=== PATIENT | male | born 1965 | race Caucasian/White ===

== ENCOUNTER → 2018-10-23 | Outpatient (CLI) | payer OTHER, SELFPAY ==
[2018-10-23 10:32] LABS: Synovial Fld Mononuclear WBC % 20.2 %; Synovial Fld Polynuclear WBC # 4.125 10^3/ul; Synovial Fld Polynuclear WBC % 79.8 %
[2018-10-23 10:56] LABS: AUTO B FLUID DILUENT BKGD CT WBC <0.1 RBC <0.01 (W<.1,R<.01); Appearance /Synovial Fluid Cloudy (CLEAR); Color / Synovial Fluid Yellow (Pale Yellow); RBC /Synovial Fluid 10 /mm3 (0); Source- Body Fluid SYNOVIAL; Viscosity / Synovial Fluid Sl. Viscous (HIGH)
[2018-10-23 11:42] LABS: Lymph 4 %; Monocyte /Synovial Fluid 7 %; Neutrophil 89 % (0-25)
[2018-10-23 11:46] LABS: Body Fluid QC Type(s) BF1Q,BF2Q,BF3Q
[2018-10-24 12:22] LABS: Pathologist Review Reviewed
[2018-10-24 12:23] LABS: Pathologist Comment Reviewed
== END | disposition home or self-care (01) ==
LOC: LABSPEC 10:15
PROVIDERS: Family Provider Preventive Medicine Occupational Medicine; PCP Preventive Medicine Occupational Medicine; Referring Provider Physician Assistant Surgical; Visit Provider Physician Assistant Surgical
DX: M17.11 Unilateral primary osteoarthritis, right knee (principal)
CPT/HCPCS: 87070; 87075; 87205; 89050; 89051; 89060

== ENCOUNTER → 2019-02-19 | Outpatient (CLI) | payer OTHER, SELFPAY ==
[2019-02-19 10:17] LABS: Pathologist Comment May follow
[2019-02-19 11:11] LABS: RBC /Synovial Fluid 0.065 10^6/uL (0); Synovial Fld Mononuclear WBC % 10.9 %; Synovial Fld Polynuclear WBC % 89.1 %
[2019-02-19 11:27] LABS: AUTO B FLUID DILUENT BKGD CT WBC <0.1 RBC <0.01 (W<.1,R<.01); Appearance /Synovial Fluid Clear (CLEAR); Color / Synovial Fluid Red (Pale Yellow)
[2019-02-19 12:14] LABS: Lymph 3 %; Monocyte /Synovial Fluid 20 %; Neutrophil 77 % (0-25)
[2019-02-19 12:15] LABS: CRYSTALS, BODY FLUID See PATH REV; Source / Synovial Fluid RIGHT KNEE; Viscosity / Synovial Fluid Mod. Viscous (HIGH)
[2019-02-19 12:16] LABS: Body Fluid QC Type(s) BF1Q, BF2Q; Source- Body Fluid SYNOVIAL
--- NOTE | 2019-02-19 13:52 | VDLE_ITS ---
Reason For Study: Pain in Rt lower leg RIGHT GSV is normal. CFV is compressible, spontaneous, phasic, competent and demonstrates normal augmentation. FV is compressible, spontaneous, phasic, competent and demonstrates normal augmentation. POP V is compressible, spontaneous, phasic, competent and demonstrates normal augmentation. T/P Trunk is compressible. PTV is compressible. RT PerV is compressible. Procedure Exam performed in department. A preliminary report was called and/or faxed to [facility]. Interpretation Summary Deep veins of the right lower extremity are patent and compressible segmentally. There is no evidence of right lower extremity deep vein thrombosis. Valvular competence appears intact within the proximal deep venous system on the right . The right great saphenous vein appears patent and compressible segmentally. Ordering Physician: Sal Veras Referring Physician: MD Rell Finley Performed By: Jeri Fink RVT
[2019-02-20 10:35] LABS: Pathologist Review Reviewed
== END | disposition home or self-care (01) ==
LOC: CVS 13:45
PROVIDERS: Family Provider Preventive Medicine Occupational Medicine; PCP Preventive Medicine Occupational Medicine; Referring Provider Physician Assistant Surgical; Visit Provider Physician Assistant Surgical
DX: M17.11 Unilateral primary osteoarthritis, right knee (principal); M25.461 Effusion, right knee; M79.661 Pain in right lower leg
CPT/HCPCS: 87015; 87070; 87075; 87101; 87116; 87205; 87206; 89050; 89051; 89060; 93971

== ENCOUNTER 2020-08-24 15:50 | Outpatient (RCR) | payer OTHER, SELFPAY ==
[2019-08-19 06:25] VITALS: BMI 34.2
[2020-08-24] MEDS: COVID-19 VACC, MRNA(PFIZER)/PF 30 MCG/0.3 ML SYRINGE IM (07:27)
[2020-09-14] MEDS: COVID-19 VACC, MRNA(PFIZER)/PF 30 MCG/0.3 ML SYRINGE IM (07:14)
== END 2020-08-24 23:59 ==
LOC: IMMUN 15:50
PROVIDERS: PCP Preventive Medicine Occupational Medicine; Referring Provider Family Medicine; Visit Provider Family Medicine
DX: Z23 Encounter for immunization (principal)
CPT/HCPCS: 0001A; 0002A; 91300

== ENCOUNTER 2021-06-27 14:59 | Outpatient (CLI) | payer OTHER, SELFPAY | END 2021-06-27 23:59 | disposition short-term general hospital (02) | LOC: LABSPEC 15:00 | PROVIDERS: PCP Preventive Medicine Occupational Medicine; Visit Provider Physician Assistant Surgical | DX: R53.83 Other fatigue (principal) | CPT/HCPCS: 87635; U0003; U0005 ==

== ENCOUNTER → 2024-04-10 | Outpatient (CLI) | payer OTHER, SELFPAY ==
--- OUTSIDE RECORDS SUMMARY | 2024-04-10 06:30 | XMS RPT_ITS | CCD ---
Author Organization [facility] Care Team Providers Care Framer Name Role Phone PROVIDER, UNKNOWN Referring Unavailable No, PCP Primary Care Unavailable Navi Gu Attending Unavailable AUSTIN FINLEY DO Primary Care Physician Austin Finley DO Primary Care Provider [phone] DAVID MARQUEZ Referring Unavailable AUSTIN FINLEY Primary Care Unavailable AUSTIN FINLEY Primary Care Unavailable DAVID MARQUEZ Attending Unavailable AUSTIN FINLEY DO Attending Unavailable AUSTIN FINLEY DO Primary Care Unavailable AUSTIN FINLEY DO Attending Unavailable AUSTIN FINLEY DO Primary Care Unavailable DR BRYAN LAMAS MD Attending UnavailAUSTIN Carreon DO Primary Care Unavailable AUSTIN FINLEY DO Attending Unavailable AUSTIN FINLEY DO Primary Care Unavailable AUSTIN FINLEY DO Primary Care Unavailable GURU MULLEN Attending [place] Allergies Allergy Classification Reported Allergen(s) Allergy Type Date of Onset Reaction(s) Facility (13 sources) Allopurinol; Translations: [allopurinol] Drug Allergy 03-20-2016 Swelling of oral cavity structure (finding), Swelling [facility] Work Phone: Medications Current Medications Medication Drug Class(es) Dates Sig (Normalized) Sig (Original) acetaminophen 325 mg / HYDROcodone bitartrate 5 mg oral tablet (1 source) Opioid Agonist Start: 02-02-2022 End: 02-07-2022 Donnellson 325- 5 mg oral tablet Dose = 1 tab(s), Oral, q4h, PRN Pain, scale 1-6, X 5 day(s), # 10 tab(s), 0 Refill(s), Acute post-operative pain, 109.1 Start Date: 02/02/22 Stop Date: 02/07/22 Status: Ordered Blood Glucose Test Machine (4 sources) Start: 07-19-2023 Blood Glucose Test Machine See Instructions, Dispense 1 glucometer, use as directed daily to test blood sugar. Diagnosis: E11.9, # 1 EA, 0 Refill(s), [id number], New onset type 2 diabetes mellitus, 185, cm, 07/19/23 11:35:00 EST, Height, 107.3, kg, 07/19/23 11:35:00 EST, Dosing Weight Start Date: 07/19/23 Status: Ordered celecoxib 200 mg oral capsule (9 sources) Nonsteroidal Anti-inflammatory Drug Start: 08-23-2021 End: 11-21-2021 celecoxib 200 mg oral capsule Dose : 200 mg = 1 cap(s), Oral, qDay, PRN Joint pain, Do not take concurrently with indomethacin., # 90 cap(s), 3 Refill(s), Pharmacy: [facility], 182.9, cm, 09/29/21 13:16:00 EDT, Height, kg, 09/29/21 13:16:00 EDT, Dosing Weight Start Date: 10/17/21 Status: Ordered colchicine 0.6 mg oral tablet (9 sources) Start: 12-04-2023 End: 06-21-2024 colchicine 0.6 mg oral tablet Dose : 0.6 mg = 1 tab(s), Oral, qDay, # 100 tab(s), 1 Refill(s), [id number], Gout, unspecified, 183, cm, 10/24/23 9:03:00 EDT, Height, kg, 10/24/23 9:03:00 EDT, Dosing Weight Start Date: 12/04/23 Stop Date: 06/21/24 Status: Ordered Start: 03-22-2023 colchicine 0.6 mg oral tablet Dose : 0.6 mg = 1 tab(s), Oral, qDay, # 90 tab(s), 0 Refill(s), [id number], Gout, unspecified, 182, cm, 02/16/22 15:19:00 EDT, Height, kg, 02/16/22 15:19:00 EDT, Dosing Weight Start Date: 03/22/23 Status: Ordered Start: 08-23-2021 colchicine 0.6 mg oral tablet Dose : 0.6 mg = 1 tab(s), Oral, qDay, # 90 tab(s), 3 Refill(s), [id number], 184, cm, 08/23/21 8:49:00 EDT, Height, kg, 08/23/21 8:49:00 EDT, Dosing Weight Start Date: 08/23/21 Status: Ordered fexofenadine / Pseudoephedrine (4 sources) alpha-Adrenergic Agonist, Histamine-1 Receptor Antagonist Start: 08-16-2023 End: 09-19-2024 take 1 tablet by mouth once daily fexofenadine-pseudoephedrine 180 mg-240 mg oral tablet, extended release Dose = 1 tab(s), Oral, qDay, X 100 day(s), # 100 tab(s), 3 Refill(s), [id number], 185, cm, 07/27/23 7:54:00 EST, Height, kg, 07/27/23 10:41:00 EST, Dosing Weight Start Date: 08/16/23 Stop Date: 09/19/24 Status: Ordered Start: 07-19-2023 End: 07-13-2024 take 1 tablet by mouth once daily as needed fexofenadine-pseudoephedrine 60 mg-120 m g oral tablet, extended release Dose = 1 tab(s), Oral, qDay, PRN as needed for allergy symptoms, # 90 tab(s), 3 Refill(s), Pharmacy: [facility] #[id number], 185, cm, 07/19/23 11:35:00 EST, Height, kg, 07/19/23 11:35:00 EST, Dosing Weight Start Date: 07/19/23 Stop Date: 07/13/24 Status: Ordered indomethacin 75 mg extended release oral capsule (9 sources) Nonsteroidal Anti-inflammatory Drug Start: 10-17-2021 indomethacin 75 m g oral capsule, extended release Dose : 75 mg = 1 cap(s), Oral, BID, PRN Gout attack, Do not take concurrently with Celebrex., # 180 cap(s), 0 Refill(s), Pharmacy: [facility], 182.9, cm, 01/25/22 7:58:00 EDT, Height, kg, 01/25/22 7:58:00 EDT, Dosing Weight Start Date: 01/26/22 Status: Ordered Start: 08-23-2021 indomethacin 7 5 mg oral capsule, extended release Dose : 75 mg = 1 cap(s), Oral, BID, PRN Gout attack, Do not take concurrently with Celebrex., # 60 cap(s), 1 Refill(s), Pharmacy: [facility]/pharmacy #[id number], 184, cm, 08/23/21 8:49:00 EDT, Height, kg, 08/23/21 8:49:00 EDT, Dosing Weight Start Date: 08/23/21 Status: Ordered Loratadine-D 24 Hour oral tablet, extended release (5 sources) Start: 04-06-2020 take 1 tablet by mouth once daily Loratadine-D 24 Hour oral tablet, extended release Dose = 1 tab(s), Oral, qDay, # 90 tab(s), 3 Refill(s), Pharmacy: [facility]/pharmacy #[id number], 184, cm, 04/06/20 15:50:00 EDT, Height, kg, 04/06/20 15:50:00 EDT, Dosing Weight Start Date: 04/06/20 Status: Ordered metFORMIN hydrochloride 1000 mg oral tablet (4 sources) Biguanide Start: 02-27-2024 End: 08-25-2024 metFORMIN 1000 mg oral tablet (IR) Dose : 1,000 mg = 1 tab(s), Oral, BID, # 120 tab(s), 2 Refill(s), Pharmacy: [facility]/pharmacy #[id number], 183, cm, 12/07/23 7:48:00 EDT, Height, kg, 12/07/23 7:48:00 EDT, Dosing Weight Start Date: 02/27/24 Stop Date: 08/25/24 Status: Ordered Start: 10-24-2023 End: 02-21-2024 metFORMIN 1000 mg oral table t (IR) Dose : 1,000 mg = 1 tab(s), Oral, BID, # 120 tab(s), 1 Refill(s), Pharmacy: [facility]/pharmacy #[id number], 183, cm, 10/24/23 9:03:00 EDT, Height, kg, 10/24/23 9:03:00 EDT, Dosing Weight Start Date: 10/24/23 Stop Date: 02/21/24 Status: Ordered Start: 07-19-2023 End: 10-17-2023 MetFORMIN (Eqv-Glucophage XR ) 500 mg oral tablet, EXTENDED RELEASE Dose : 2,000 mg = 4 tab(s), Oral, qDay, Start with 1 tablet p.o. daily and increase dose as tolerated., # 120 tab(s), 2 Refill(s), Pharmacy: [facility]/pharmacy #[id number], New onset type 2 diabetes mellitus, 185, cm, 07/19/23 11:35:00 EST, Height, kg, 07/19/23 11:35:00 EST, Dosing Weight Start Date: 07/19/23 Stop Date: 10/17/23 Status: Ordered Multivitamin preparation (5 sources) Start: 12-03-2018 take 1 tablet by mouth once daily Multivitamin Dose = 1 tab(s), Oral, Daily, 0 Refill(s) Start Date: 12/03/18 Status: Ordered predniSONE 10 mg oral tablet (5 sources) Start: 10-17-2021 take 6 tablets by mouth once daily as needed for pain, then take 5 tablets by mouth once daily as needed for pain, then take 4 tablets by mouth once daily as needed for pain, then take 3 tablets by mouth once daily as needed for pain, then take 2 tablets by mouth once daily as needed for pain, then take 1 tablet by mouth once daily as needed for pain predniSONE 10 mg oral tablet See Instructions, PRN Joint pain, Take 6 tabs daily x3 days, then 5 tablets daily x3 days, then 4 tabs daily x3 days, then 3 tabs daily x3 days, then 2 tabs daily x3 days, then 1 tab daily x3 days; take with food, # 63 tab(s), 1 Refill(s), [facility]acy: [facility] Start Date: 10/17/21 Status: Ordered Start: 08-23-2021 take 6 tablets by mo uth once daily as needed for pain, then take 5 tablets by mouth once daily as needed for pain, then take 4 tablets by mouth once daily as needed for pain, then take 3 tablets by mouth once daily as needed for pain, then take 2 tablets by mouth once daily as needed for pain, then take 1 tablet by mouth once daily as needed for pain predniSONE 10 mg oral tablet See Instructions, PRN Joint pain, Take 6 tabs daily x3 days, then 5 tablets daily x3 days, then 4 tabs daily x3 days, then 3 tabs daily x3 days, then 2 tabs daily x3 days, then 1 tab daily x3 days; take with food, # 63 tab(s), 1 Refill(s), Pharmacy: [facility] Start Date: 08/23/21 Status: Ordered Completed/Discontinued Medications Medication Drug Class(es) Dates Sig (Normalized) Sig (Original) betamethasone 1 mg/ml topical cream (9 sources) Corticosteroid Start: 07-19-2023 betamethasone valerate 0.1% topical cream Apply 1 laurie, Topical, BID, # 15 gram(s), 1 Refill(s), Pharmacy: [facility]/pharmacy #[id number], Cream, 185, cm, 07/19/23 11:35:00 EST, Height, 107.3, kg, 07/19/23 11:35:00 EST, Dosing Weight Start Date: 07/19/23 Status: Ordered Start: 08-23-2021 betamethasone valerate 0.1% topical cream Apply 1 laurie, Topical, BID, # 15 gram(s), 1 Refill(s), Pharmacy: [facility]/pharm[facility] #[id number], Cream, 184, cm, 08/23/21 8:49:00 EDT, Height, 111.3, kg, 08/23/21 8:49:00 EDT, Dosing Weight Start Date: 08/23/21 Status: Ordered sildenafil 20 mg oral tablet (9 sources) Phosphodiesterase 5 Inhibitor Start: 10-24-2023 End: 01-22-2024 take 1-5 tablets by mouth once daily as needed sildenafil 20 mg oral tablet 1-5 tabs, Oral, Daily, PRN Erectile dysfunction, # 30 tab(s), 2 Refill(s), Pharmacy: [facility]/pharmacy #[id number], ED (erectile dysfunction), 183, cm, 10/24/23 9:03:00 EDT, Height, kg, 10/24/23 9:03:00 EDT, Dosing Weight Start Date: 10/24/23 Stop Date: 01/22/24 Status: Ordered Start: 03-01-2023 take 1-5 tablets by mouth once daily as needed sildenafil 20 mg oral tablet 1-5 tabs, Oral, Daily, PRN Erectile dysfunction, # 30 tab(s), 3 Refill(s), Pharmacy: [facility] #[id number], ED (erectile dysfunction), 182, cm, 02/16/22 15:19:00 EDT, Height, kg, 02/16/22 15:19:00 EDT, Dosing Weight Start Date: 03/01/23 Status: Ordered Start: 08-23-2021 take 1-5 tablets by mouth once daily as needed sildenafil 20 mg oral tablet 1-5 tabs, Oral, Daily, PRN Erectile dysfunction, # 30 tab(s), 3 Refill(s), Pharmacy: [facility]/pharmacy #[id number], ED (erectile dysfunction), 184, cm, 08/23/21 8:49:00 EDT, Height, kg, 08/23/21 8:49:00 EDT, Dosing Weight Start Date: 08/23/21 Status: Ordered Problems Problem Classification Problem Date Documented Date Episodic/Chronic Allergic reactions (2 sources) Allergy status to other drugs, medicaments and biological substances status; Translations: [Allergy status to oth drug/meds/biol subst status] Onset: 08-04-2018 Episodic Diabetes mellitus without complication (6 sources) Type 2 diabetes mellitus 07-19-2023 Chronic Diabetes mellitus without complication (4 sources) Hyperglycemia; Translations: [Hyperglycemia, unspecified] Onset: 07-14-2023 07-14-2023 Episodic Gout and other crystal arthropathies (11 sources) Gout, unspecified; 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] Onset: 08-04-2018 10-24-2019 Chronic Nonspecific chest pain (4 sources) Acute chest pain; Translations: [Chest pain, unspecified] Onset: 07-14-2023 07-14-2023 Episodic Other and unspecified benign neoplasm (9 sources) Lipoma of right lower limb 08-23-2021 Episodic Other male genital disorders (9 sources) Impotence 03-19-2019 Chronic Other nervous system disorders (1 source) Postoperative pain ; Translations: [Other acute postprocedural pain] Onset: 02-02-2022 Episodic Other non-traumatic joint disorders (2 sources) Pain in right knee; Translations: [Pain in right knee] Onset: 08-04-2018 Episodic Other skin disorders (6 sources) Mass of lower limb 10-24-2021 Episodic Other upper respiratory disease (9 sources) Seasonal allergy 09-19-2019 Chronic Residual codes; unclassified (2 sources) Acquired absence of other specified parts of digestive tract; Translations: [Acquired absence of other specified parts of digestive tract] Onset: 08-04-2018 Episodic Unclassified (6 sources) Patient encounter status 07-19-2023 Results Test Name Value Interpretation Reference Range Facility .GFRon 04-08-2024 GFR 91 ml/min/1.73sqm [facility] Comment on above: Result Comment: GFR Population mean for , Non- Americans Ages 20-29 = 116 mL/min/1.73 sq.m. Ages 30-39 = 107 mL/min/1.73 sq.m. Ages 40-49 = 99 mL/min/1.73 sq.m. Ages 50-59 = 93 mL/min/1.73 sq.m. Ages 60-69 = 85 mL/min/1.73 sq.m. Ages 70+ = 75 mL/min/1.73 sq.m. Chronic Kidney Disease: Less than 60 mL/min/1.73 square meters End Stage Renal Disease: Less than 15 mL/min/1.73 square meters Performed By: #### D LDL, CMP, PSA, GFR, LIPID, A1C #### [address] [place], [place] [address] GFR Non- 75 ml/min/1.73sqm [facility] Comment on above: Result Comment: GFR Population mean for , Non- Americans Ages 20-29 = 116 mL/min/1.73 sq.m. Ages 30-39 = 107 mL/min/1.73 sq.m. Ages 40-49 = 99 mL/min/1.73 sq.m. Ages 50-59 = 93 mL/min/1.73 sq.m. Ages 60-69 = 85 mL/min/1.73 sq.m. Ages 70+ = 75 mL/min/1.73 sq.m. Chronic Kidney Disease: Less than 60 mL/min/1.73 square meters End Stage Renal Disease: Less than 15 mL/min/1.73 square meters Performed By: #### D LDL, CMP, PSA, GFR, LIPID, A1C #### [address] [address] A1Con 04-08-2024 Glucose [Mass/Vol] 128 mg/dL Normal [facility] Comment on above: Result Comment: Natalya mated Average Glucose calculated by equation ((28.7xA1C)-46.7) Estimated average glucose (eAG) is a calculated value from Hemoglobin A1C and is employee's representative of the average blood glucose level in the last 2-3 month period. Normal range: less than 114 mg/dL Performed By: #### D LDL, CMP, PSA, GFR, LIPID, A1C #### [address] [address] HbA1c (Bld) [Mass fraction] 6.1 % Normal 4.3-6.4 [facility] Comment on above: Performed By: #### D LDL, CMP, PSA, GFR, LIPID, A1C #### [address] [address] CMPon 04-08-2024 Albumin Level 4.0 G/dL Normal 3.5-5.0 [facility] Comment on above: Performed By: #### D LDL, CMP, PSA, GFR, LIPID, A1C #### [address] [address] Albumin/Globulin [Mass ratio] 1.4 {ratio} Normal 1.1-2.5 [facility] Comment on above: Performed By: #### D LDL, CMP, PSA, GFR, LIPID, A1C #### [address] [address] ALP [Catalytic activity/Vol] 66 U/L Normal 40-135 [facility] Comment on above: Performed By: #### D LDL, CMP, PSA, GFR, LIPID, A1C #### [address] [address] ALT [Catalytic activity/Vol] 41 U/L Normal 16-63 [facility] Comment on above: Performed By: #### D LDL, CMP, PSA, GFR, LIPID, A1C #### [address] [address] AST [Catalytic activity/Vol] 15 U/L Normal 10-40 [facility] Comment on above: Performed By: #### D LDL, CMP, PSA, GFR, LIPID, A1C #### [address] [address] Bili Total 0.4 mg/dL Normal 0.2-1.0 [facility] Comment on above: Result Comment: Use of this assay is not recommended for patients undergoing treatment with eltrombopag due to the potential for falsely elevated results. Performed By: #### D LDL, CMP, PSA, GFR, LIPID, A1C #### [address] [address] BUN/Creatinine Ratio 20 ratio Normal 7-27 [facility] Comment on above: Performed By: #### D LDL, CMP, PSA, GFR, LIPID, A1C #### [address] [address] Calcium [Mass/Vol] 9.3 mg/dL Normal 8.4-10.2 [facility] Comment on above: Performed By: #### D LDL, CMP, PSA, GFR, LIPID, A1C #### [address] [address] Chloride [Moles/Vol] 101 mmol/L Normal 98-107 [facility] Comment on above: Performed By: #### D LDL, CMP, PSA, GFR, LIPID, A1C #### [address] [address] CO2 [Moles/Vol] 31 mmol/L High 22-29 [facility] Comment on above: Performed By: #### D LDL, CMP, PSA, GFR, LIPID, A1C #### [address] [address] Creatinine [Mass/Vol] 1.02 mg/dL Normal 0.70-1.30 [facility] Comment on above: Result Comment: Test ing performed on Siemens Dimension EXL analyzer using a modified kinetic Zac technique. Performed By: #### D LDL, CMP, PSA, GFR, LIPID, A1C #### [address] [address] Electrolyte Balance 6.0 mEq/L Normal 4.0-15.0 [facility] Comment on above: Performed By: #### D LDL, CMP, PSA, GFR, LIPID, A1C #### [address] [address] Globulin 2.9 G/dL Normal [facility] Comment on above: Performed By: #### D LDL, CMP, PSA, GFR, LIPID, A1C #### [address] [address] Glucose [Mass/Vol] 157 mg/dL High 70-105 [facility] Comment on above: Performed By: #### D LDL, CMP, PSA, GFR, LIPID, A1C #### [address] [address] Potassium [Moles/Vol] 4.7 mmol/L Normal 3.5-5.1 [facility] Comment on above: Performed By: #### D LDL, CMP, PSA, GFR, LIPID, A1C #### [address] [address] Sodium [Moles/Vol] 138 mmol/L Normal 136-145 [facility] Comment on above: Performed By: #### D LDL, CMP, PSA, GFR, LIPID, A1C #### [address] [address] Total Protein 6.9 G/dL Normal 6.4-8.2 [facility] Comment on above: Performed By: #### D LDL, CMP, PSA, GFR, LIPID, A1C #### [address] [address] Urea nitrogen [Mass/Vol] 20 mg/dL High 7-18 [facility] Comment on above: Performed By: #### D LDL, CMP, PSA, GFR, LIPID, A1C #### [address] [place], [place] [address] DLDLon 04-08-2024 Direct LDL Cholesterol 74 mg/dL Normal 0-99 [facility] Comment on above: Result Comment: Dire ct LDL Cholesterol Reference Interval: Optimal: <100 mg/dL Near Optimal/above optimal: 100-129 mg/dL Borderline high: 130-159 mg/dL High: 160-189 mg/dL Very high: >=190 mg/dL Performed By: #### D LDL, CMP, PSA, GFR, LIPID, A1C #### [facility] [address] [place], [place] [address] LABORATORYOrdered By: SYSTEM SYSTEM on 04-08-2024 Albumin BCP dye [Mass/Vol] 4.0 G/dL Normal 3.5 - 5.0 G/dL AO ADM SS Albumin/Globulin [Mass ratio] 1.4 {ratio} Normal 1.1 - 2.5 ratio AO ADM SS ALP [Catalytic activity/Vol] 66 U/L Normal 40 - 135 U/L AO ADM SS ALT With P-5'-P [Catalytic activity/Vol] 41 U/L Normal 16 - 63 U/L AO ADM SS AST With P-5'-P [Catalytic activity/Vol] 15 U/L Normal 10 - 40 U/L AO ADM SS Bilirubin [Mass/Vol] 0.4 mg/dL Normal 0.2 - 1 .0 mg/dL AO ADM SS Comment on above: Interpretive Data: U se of this assay is not recommended for patients undergoing treatment with eltrombopag due to the potential for falsely elevated results. Calcium [Mass/Vol] 9.3 mg/dL Normal 8.4 - 10. 2 mg/dL AO ADM SS Chloride [Moles/Vol] 101 mmol/L Normal 98 - 10 7 mmol/L AO ADM SS CO2 [Moles/Vol] 31 mmol/L High 22 - 29 mmol/L AO ADM SS Creatinine [Mass/Vol] 1.02 mg/dL Normal 0.70 - 1.30 mg/dL AO ADM SS Comment on above: Interpretive Data: T esting performed on Siemens Dimension EXL analyzer using a modified kinetic Zac technique. Electrolyte Balance 6.0 mEq/L Normal 4.0 - 15 .0 mEq/L AO ADM SS GFR/1.73 sq M.predicted among blacks MDRD (S/P/Bld) [Vol rate/Area] 91 ml/min/1.73sqm Invalid Interpretation Code AO Chemistry S Comment on above: Interpretive Data: GFR Population mean for , Non- Americans Ages 20-29 = 116 mL/min/1.73 sq.m. Ages 30-39 = 107 mL/min/1.73 sq.m. Ages 40-49 = 99 mL/min/1.73 sq.m. Ages 50-59 = 93 mL/min/1.73 sq.m. Ages 60-69 = 85 mL/min/1.73 sq.m. Ages 70+ = 75 mL/min/1.73 sq.m. Chronic Kidney Disease: Less than 60 mL/min/1.73 square meters End Stage Renal Disease: Less than 15 mL/min/1.73 square meters GFR/1.73 sq M.predicted among non-blacks MDRD (S/P/Bld) [Vol rate/Area] 75 ml/min/1.73sqm Invalid Interpretation Code AO Chemistry S Comment on above: Interpretive Data: GFR Population mean for , Non- Americans Ages 20-29 = 116 mL/min/1.73 sq.m. Ages 30-39 = 107 mL/min/1.73 sq.m. Ages 40-49 = 99 mL/min/1.73 sq.m. Ages 50-59 = 93 mL/min/1.73 sq.m. Ages 60-69 = 85 mL/min/1.73 sq.m. Ages 70+ = 75 mL/min/1.73 sq.m. Chronic Kidney Disease: Less than 60 mL/min/1.73 square meters End Stage Renal Disease: Less than 15 mL/min/1.73 square meters Globulin 2.9 G/dL Invalid Interpretation Code AO ADM SS Glucose [Mass/Vol] 128 mg/dL Invalid Interpretation Code AO Chemistry S Comment on above: Interpretive Data: E stimated average glucose (eAG) is a calculated value from Hemoglobin A1C and is employee's representative of the average blood glucose level in the last 2-3 month period. Normal range: less than 114 mg/dL Glucose [Mass/Vol] 157 mg/dL High 70 - 105 mg/dL AO ADM SS HbA1c (Bld) [Mass fraction] 6.1 % Normal 4.3 - 6.4 % AO ADM SS Potassium [Moles/Vol] 4.7 mmol/L Normal 3.5 - 5.1 mmol/L AO ADM SS Prostate specific Ag [Mass/Vol] 0.41 ng/mL Normal 0.00 - 4.00 ng/mL AO ADM SS Protein [Mass/Vol] 6.9 G/dL Normal 6.4 - 8.2 G/dL AO ADM SS Sodium [Moles/Vol] 138 mmol/L Normal 136 - 145 mmol/L AO ADM SS Urea nitrogen [Mass/Vol] 20 mg/dL High 7 - 18 mg/dL AO ADM SS Urea nitrogen/Creatinine [Mass ratio] 20 ratio Normal 7 - 27 ratio AO ADM SS LABORATORYOrdered By: Blanca Solis on 04-08-2024 Cholesterol [Mass/Vol] 227 mg/dL High 0 - 200 mg/dL AO ADM Comment on above: Interpretive Data: C holesterol Reference Interval: Less than 200 Desirable 200-239 Borderline high risk 240 and above High risk Cholesterol in HDL [Mass/Vol] 33 mg/dL Low 40 - 60 mg/dL AO ADM SS Cholesterol in LDL [Mass/Vol] 74 mg/dL Normal 0 - 99 mg/dL AO ADM Comment on above: Interpretive Data: D irect LDL Cholesterol Reference Interval: Optimal: <100 mg/dL Near Optimal/above optimal: 100-129 mg/dL Borderline high: 130-159 mg/dL High: 160-189 mg/dL Very high: >=190 mg/dL LDL Cholesterol Not Valid Invalid Interpretation Code 0 - 130 AO ADM Comment on above: Result Comment: Trig lyceride >400 invalidates the calculated LDL. Triglyceride [Mass/Vol] 672 mg/dL High 0 - 150 mg/dL AO ADM Comment on above: Interpretive Data: T riglyceride Reference Interval: Less than 150 Normal 150-199 Borderline high risk 200-499 High risk 500 or higher Very high risk LIPIDon 04-08-2024 Cholesterol [Mass/Vol] 227 mg/dL High 0-200 [facility] Comment on above: Result Comment: Chol esterol Reference Interval: Less than 200 Desirable 200-239 Borderline high risk 240 and above High risk Performed By: #### D LDL, CMP, PSA, GFR, LIPID, A1C #### [address] [place], [place] [address] Cholesterol in HDL [Mass/Vol] 33 mg/dL Low 40-60 [facility] Comment on above: Performed By: #### D LDL, CMP, PSA, GFR, LIPID, A1C #### [address] [address] LDL Cholesterol Not Valid Normal 0-130 [facility] Comment on above: Result Comment: Trig lyceride >400 invalidates the calculated LDL. Performed By: #### D LDL, CMP, PSA, GFR, LIPID, A1C #### [address] [place], [place] [address] Triglyceride [Mass/Vol] 672 mg/dL High 0-150 [facility] Comment on above: Result Comment: Trig lyceride Reference Interval: Less than 150 Normal 150-199 Borderline high risk 200-499 High risk 500 or higher Very high risk Performed By: #### D LDL, CMP, PSA, GFR, LIPID, A1C #### [address] [place], [place] [address] PSAon 04-08-2024 Prostate Specific Antigen 0.41 ng/mL Normal 0.00-4.00 [facility] Comment on above: Performed By: #### D LDL, CMP, PSA, GFR, LIPID, A1C #### [address] [address] BASIC METABOLIC PANELon 02-0 Anion gap [Moles/Vol] 11 mmol/L Normal 3-13 [facility] Comment on above: Performed By: #### Beto [place], [id number] #### [employer] Director: BETTY LOWE ([id number]) [facility] [place] ([employer]) [address] [place] [address] [place] Calcium [Mass/Vol] 9.1 mg/dL Normal 8.4-10.4 [facility] Comment on above: Performed By: #### Beto GILLILAND, [id number] #### [employer] Director: BETTY LOWE ([id number]) [facility], [employer] [place] ([employer]) [address] [place] [address] [place] Chloride [Moles/Vol] 101 mmol/L Normal 98-107 [facility] Comment on above: Performed By: #### Beto GILLILADN, [id number] #### [employer] Director: BETTY LOWE ([phone]) [facility] [facility] R[facility]AN (SWRLAB) [address] [place] [address] CO2 [Moles/Vol] 24 mmol/L Normal 22-30 [facility] Comment on above: Performed By: #### Beto GILLILAND, [id number] #### Museum Or Zoo Director: BETTY LOWE ([phone]) [facility] [address] [place] [address] Creatinine [Mass/Vol] 1.08 mg/dL Normal 0.66-1.25 [facility] Comment on above: Performed By: #### Beto GILLILAND, [id number] #### Museum Or Zoo Director: BETTY LOWE ([id number]) [facility] [address] [place] [address] GLOMERULAR FILTRATION RATE ML/MIN/1.73 SQ M.PREDICTED 79.5 mL/min/1.73m*2 Normal >60.0 [facility] Comment on above: Result Comment: Calc ulation based on the Chronic Kidney Disease Epidemiology Collaboration (CKD-EPI) equation refit without adjustment for race Performed By: #### Beto GILLILAND, [id number] #### Museum Or Zoo Director: BETTY LOWE ([id number]) [facility] (SWRLAB) [address] [place] [address] Glucose [Mass/Vol] 302 mg/dL High 70-100 [facility] Comment on above: Performed By: #### Beto GILLILAND, [id number] #### Museum Or Zoo Director: BETTY LOWE ([phone]) [facility] JAMAR RITTMAN (SWRLAB) [address] [place] [address] Potassium [Moles/Vol] 4.3 mmol/L Normal 3.5-5.1 [facility] Comment on above: Performed By: #### L [id number], [id number] #### Museum Or Zoo Director: BETTY LOWE ([id number]) [facility] [address] [place] [address] Sodium [Moles/Vol] 135 mmol/L Normal 135-145 [facility] Comment on above: Performed By: #### L [id number], [id number] #### Museum Or Zoo Director: BETTY LOWE ([id number]) [facility] [address] [place] [address] Urea nitrogen [Mass/Vol] 20 mg/dL Normal 9-20 [facility] Comment on above: Performed By: #### L [id number], [id number] #### Museum Or Zoo Director: BETTY LOWE ([id number]) [facility] RITTMAN (SWRLAB) [address] [place] [address] Basic metabolic 1998 panelOr dered By: Deshawn Jasmine on 07-14-2023 Anion gap [Moles/Vol] 11 mmol/L 3 - 13 mmol/L [facility] Calcium [Mass/Vol] 9.1 mg/dL 8.4 - 10. 4 mg/dL [facility] Chloride [Moles/Vol] 101 mmol/L 98 - 10 7 mmol/L [facility] CO2 [Moles/Vol] 24 mmol/L 22 - 30 mmol/L [facility] Creatinine [Mass/Vol] 1.08 mg/dL 0.66 - 1.25 mg/dL [facility] GFR/1.73 sq M.predicted MDRD (S/P/Bld) [Vol rate/Area] 79.5 mL/min/{1.73_m2} - PINF [facility] Comment on above: Calculation based on the Chronic Kidney Disease Epidemiology Collaboration (CKD-EPI) equation refit without adjustment for race Glucose [Mass/Vol] 302 mg/dL High 70 - 100 mg/dL [facility] Interpretation and review of laboratory results Abnormal [facility] Potassium [Moles/Vol] 4.3 mmol/L 3.5 - 5.1 mmol/L [facility] Sodium [Moles/Vol] 135 mmol/L 135 - 145 mmol/L [facility] Urea nitrogen [Mass/Vol] 20 mg/dL 9 - 20 mg/dL [facility] CBC W Auto Differential pane l (Bld)on 07-14-2023 Basophils (Bld) [#/Vol] 0.1 10*3/uL 0.0 - 0.2 10*3/uL [facility] Basophils/100 WBC (Bld) 1.0 % 0.0 - 2.0 % [facility] Eosinophils (Bld) [#/Vol] 0.1 10*3/uL 0.0 - 0.5 10*3/uL [facility] Eosinophils/100 WBC (Bld) 1.4 % 1.0 - 6.0 % [facility] Erythrocyte distribution width (RBC) [Ratio] 12.2 % 11.5 - 14.5 % [facility] Hematocrit (Bld) [Volume fraction] 42.8 % 40.0 - 52.0 % [facility] Hemoglobin (Bld) [Mass/Vol] 15.5 g/dL 13.0 - 18.0 g/dL [facility] Immature granulocytes (Bld) [#/Vol] 0.0 10*3/uL NINF - 0.0 10*3/uL [facility] Immature granulocytes/100 WBC (Bld) 0.2 % High NINF - 0.0 % [facility] Interpretation and review of laboratory results Abnormal [facility] Lymphocytes (Bld) [#/Vol] 2.0 10*3/uL 1.0 - 4.3 10*3/uL [facility] Lymphocytes/100 WBC (Bld) 34.1 % 20.0 - 40.0 % [facility] MCH (RBC) [Entitic mass] 31.2 pg 26.0 - 34.0 pg [facility] MCHC (RBC) [Mass/Vol] 36.2 % High 32.0 - 36.0 % [facility] MCV (RBC) [Entitic vol] 86.1 fL 80.0 - 98.0 fL [facility] Monocytes (Bld) [#/Vol] 0.3 10*3/uL 0.0 - 0.8 10*3/uL [facility] Monocytes/100 WBC (Bld) 5.9 % 2.0 - 10.0 % [facility] Neutrophils (Bld) [#/Vol] 3.3 10*3/uL 1.8 - 7.0 10*3/uL [facility] Neutrophils/100 WBC (Bld) 57.4 % 40.0 - 80.0 % [facility] [employer] Nucleated RBC/100 WBC (Bld) [Ratio] 0.0 % [facility] Platelet mean volume (Bld) [Entitic vol] 9.4 fL 7.4 - 12.4 fL [facility] Comment on above: MPV is a calculated measurement using platelet volume ratio Platelets (Bld) [#/Vol] 230 10*3/uL 140 - 440 10*3/uL [facility] RBC (Bld) [#/Vol] 4.97 10*6/uL 4.40 - 5.9 0 10*6/uL [facility] WBC (Bld) [#/Vol] 5.8 10*3/uL 3.6 - 10.7 10*3/uL [facility] CBC WITH AUTO DIFFERENTIALon 07-14-2023 Basophils (Bld) [#/Vol] 0.1 10*3/uL Normal 0.0-0.2 [facility] Comment on above: Performed By: #### L [id number] #### Museum Or Zoo Director: BETTY LOWE ([id number]) [facility]AN (SWRLAB) [address] [place] [address] [place] Basophils/100 WBC (Bld) 1.0 % Normal 0.0-2.0 [facility] Comment on above: Performed By: #### L [id number] #### Museum Or Zoo Director: BETTY LOWE ([id number]) [facility] (SWRLAB) [address] [place] [address] [place] Eosinophils (Bld) [#/Vol] 0.1 10*3/uL Normal 0.0-0.5 [facility] Comment on above: Performed By: #### L [id number] #### Museum Or Zoo Director: BETTY LOWE ([id number]) [facility] (SWRLAB) [address] [place] [address] [place] Eosinophils/100 WBC (Bld) 1.4 % Normal 1.0-6.0 [facility] Comment on above: Performed By: #### L [id number] #### Museum Or Zoo Director: BETTY LOWE ([id number]) [facility] (SWRLAB) [address] [place] [address] Erythrocyte distribution width (RBC) [Ratio] 12.2 % Normal 11.5-14.5 [facility] Comment on above: Performed By: #### L [id number] #### Museum Or Zoo Director: BETTY LOWE ([id number]) [facility] (SWRLAB) [address] [place] [address] ERYTHROCYTE MEAN CORPUSCULAR HEMOGLOBIN CONCENTRATION (G/DL) BY AUTOMATED 36.2 % High 32.0-36.0 [facility] Comment on above: Performed By: #### L [id number] #### Museum Or Zoo Director: BETTY LOWE ([id number]) [facility] (SWRLAB) [address] [place] [address] Hematocrit (Bld) [Volume fraction] 42.8 % Normal 40.0-52.0 [facility] Comment on above: Performed By: #### L [id number] #### Museum Or Zoo Director: BETTY LOWE ([id number]) [facility] (SWRLAB) [address] [place] [address] Hemoglobin (Bld) [Mass/Vol] 15.5 g/dL Normal 13.0-18.0 [facility] Comment on above: Performed By: #### L [id number] #### Museum Or Zoo Director: BETTY LOWE ([id number]) [facility] ROLDNA RITTMAN (SWRLAB) [address] [place] [address] [place] IMMATURE GRANS (10*3/UL) IN BLOOD BY AUTOMATED COUNT 0.0 10*3/uL Normal <=0.0 [facility] Comment on above: Performed By: #### L [id number] #### Museum Or Zoo Director: BETTY LOWE ([id number]) [facility] (SWRLAB) [address] [place] [address] IMMATURE GRANS/100 LEUKOCYTES IN BLOOD BY AUTOMATED COUNT 0.2 % High <=0.0 [facility] Comment on above: Performed By: #### L [id number] #### Museum Or Zoo Director: BETTY LOWE ([id number]) [facility] (SWRLAB) [address] [place] [address] Lymphocytes (Bld) [#/Vol] 2.0 10*3/uL Normal 1.0-4.3 [facility] Comment on above: Performed By: #### L [id number] #### Museum Or Zoo Director: BETTY LOWE ([id number]) [facility] (SWRLAB) [address] [place] [address] Lymphocytes/100 WBC (Bld) 34.1 % Normal 20.0-40.0 [facility] Comment on above: Performed By: #### L [id number] #### Museum Or Zoo Director: BETTY LOWE ([id number]) [facility] (SWRLAB) [address] [place] [address] MCH (RBC) [Entitic mass] 31.2 pg Normal 26.0-34.0 [facility] Comment on above: Performed By: #### L [id number] #### Museum Or Zoo Director: BETTY LOWE ([id number]) [facility] (SWRLAB) [address] [place] [address] MCV (RBC) [Entitic vol] 86.1 fL Normal 80.0-98.0 [facility] Comment on above: Performed By: #### L [id number] #### Museum Or Zoo Director: BETTY LOWE ([id number]) [facility] (SWRLAB) [address] [place] [address] [place] Monocytes (Bld) [#/Vol] 0.3 10*3/uL Normal 0.0-0.8 [facility] Comment on above: Performed By: #### L [id number] #### Museum Or Zoo Director: BETTY LOWE ([id number]) [facility] R[facility]TM[facility] (SWRLAB) [address] [place] [address] [place] Monocytes/100 WBC (Bld) 5.9 % Normal 2.0-10.0 [facility] Comment on above: Performed By: #### L [id number] #### Museum Or Zoo Director: BETTY LOWE ([phone]) [facility] (SWRLAB) [address] [place] [address] [place] Neutrophils (Bld) [#/Vol] 3.3 10*3/uL Normal 1.8-7.0 [facility] Comment on above: Performed By: #### L [id number] #### Museum Or Zoo Director: BETTY LOWE ([id number]) [facility] (SWRLAB) [address] [place] [address] [place] Neutrophils/100 WBC (Bld) 57.4 % Normal 40.0-80.0 [facility] Comment on above: Performed By: #### L [id number] #### Museum Or Zoo Director: BETTY LOWE ([id number]) [facility] (SWRLAB) [address] [place] [address] [place] NRBC (PER 100 WBCS) BY AUTOMATED COUNT 0.0 /100 WBCs Normal 0.0-2.0 [facility] Comment on above: Performed By: #### L [id number] #### Museum Or Zoo Director: BETTY LOWE ([id number]) [facility] (SWRLAB) [address] [place] [address] Platelet mean volume (Bld) [Entitic vol] 9.4 fL Normal 7.4-12.4 [facility] Comment on above: Result Comment: MPV is a calculated measurement using platelet volume ratio Performed By: #### L [id number] #### Museum Or Zoo Director: BETTY LOWE ([id number]) [facility] (SWRLAB) [address] [place] [address] [place] Platelets (Bld) [#/Vol] 230 10*3/uL Normal 140-440 [facility] Comment on above: Performed By: #### L [id number] #### Museum Or Zoo Director: BETTY LOWE ([id number]) [facility] (SWRLAB) [address] [place] [address] RBC (Bld) [#/Vol] 4.97 10*6/uL Normal 4.40-5.90 [facility] Comment on above: Performed By: #### L [id number] #### Museum Or Zoo Director: BETTY LOWE ([id number]) [facility] (SWRLAB) [address] [place] [address] WBC (Bld) [#/Vol] 5.8 10*3/uL Normal 3.6-10.7 [facility] Comment on above: Performed By: #### L [id number] #### Museum Or Zoo Director: BETTY LOWE ([id number]) [facility] (SWRLAB) [address] [place] [address] ECG 12-LEADon 07-14-2023 ECG 12-LEAD IMPRESSION: Sinus rhythm No previous ECG available for comparison Electronically Signed On 07-14-2023 11:02:57 EST by David Marquez [facility] ED Nursing Noteon 07-14-2023 ED Nursing Note Pt ambulatory to [place] [address] with c/o chest tightness, sudden onset yesterday. Pt describes the tightness over left chest wall with no modifying factors. Pt denies any shortness of breath, dizziness, lightheadedness, nausea, vomiting. Pt reports that he did have recent flight yesterday. 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 EKG obtained. Normal [facility] ED Provider Noteon ED Provider Note EMERGENCY DEPARTMENT ENCOUNTER Pt Name: Florencia Tavarez Birthdate 1965 Date of evaluation: 07/14/2023 ED Provider: David Marquez MD CHIEF COMPLAINT Chief Complaint Patient presents with Chest Pain History from patient and HISTORY OF PRESENT ILLNESS (Location/Symptom, Timing/Onset, Context/Setting, Quality, Duration, Modifying Factors, Severity) Note limiting factors. I wore appropriate PPE for the entirety of this encounter. HPI Florencia Tavarez is a 58 y.o. who presents to the emergency department complaining of chest pain. States that beginning 2 days ago he had dull mild aching intermittent pain in the left side of his chest. No fever injury. Pain last for several minutes. Nothing makes it better nothing makes it worse. No exertional chest pain or shortness of breath. No history of cardiac pulmonary blood clot or aortic disease. Cardiac risk factor includes chewing tobacco but no smoking tobacco. He did fly home from [place] yesterday -connecting flights but no other travel or immobilization this week. No family history of heart disease or blood clots. No swelling of his legs or shortness of breath. No diaphoresis or palpitations. Told his about it this morning and she was concerned this may be cardiac origin so came to the emergency department. PCP not available this weekend Nursing Notes were reviewed. Limitations to history: None Outside historians: Family REVIEW OF SYSTEMS Review of Systems Constitutional: Negative for fever. Eyes: Negative for visual disturbance. Respiratory: Negative for apnea, cough, choking, chest tightness, shortness of breath, wheezing and stridor. Cardiovascular: Positive for chest pain. Negative for palpitations and leg swelling. Gastrointestinal: Negative for abdominal pain. Genitourinary: Negative for difficulty urinating and flank pain. Musculoskeletal: Negative for back pain and neck pain. Skin: Negative for rash. Neurological: Negative for seizures, speech difficulty, weakness, numbness and headaches. Pertinent positives and negatives as per HPI PAST MEDICAL HISTORY Past Medical History: Diagnosis Date Gout SURGICAL HISTORY Past Surgical History: Procedure Laterality Date APPENDECTOMY KNEE SURGERY Right CURRENT MEDICATIONS Previous Medications No medications on file ALLERGIES Allopurinol FAMILY HISTORY No family history on file. SOCIAL HISTORY Social History Socioeconomic History Marital status: Tobacco Use Smoking status: Never Smokeless tobacco: Never Substance and Sexual Activity Alcohol use: No Drug use: No SCREENINGS HEART Score History: Slightly suspicious ECG: Normal Age: 45-64 Risk Factors: 1-2 risk factors Troponin: Less than or equal to normal limit HEART Score: 2 PHYSICAL EXAM ED Triage Vitals [07/14/23 1046] Temp Heart Rate Resp BP 36.7 ?C (98 ?F) 77 14 (!) 144/97 SpO2 Temp Source Heart Rate Source Patient Position 95 % Oral -- -- BP Location FiO2 (%) Right arm -- Physical Exam Constitutional: Appearance: He is well-developed. HENT: Head: Normocephalic and atraumatic. Eyes: Extraocular Movements: Extraocular movements intact. Pupils: Pupils are equal, round, and reactive to light. Neck: Thyroid: No thyromegaly. Vascular: No JVD. Cardiovascular: Rate and Rhythm: Normal rate. Abdominal: Palpations: Abdomen is soft. There is no mass. Tenderness: There is no abdominal tenderness. Musculoskeletal: General: Normal range of motion. Cervical back: Normal range of motion. Lymphadenopathy: Cervical: No cervical adenopathy. Skin: General: Skin is warm and dry. Neurological: General: No focal deficit present. Mental Status: He is alert. Not febrile not toxic Lungs clear and equal no rales or rhonchi Heart regular rate and rhythm no murmurs or rubs No pulse delays No Homans' sign or cords No focal neurologic deficit DIAGNOSTIC RESULTS Procedures/EKG: EKG was reviewed by myself. Physician EKG interpretation can be found in [facility] RADIOLOGY (Per Emergency Physician): Chest x- ray - no acute process Interpretation per the Radiologist below, if available at the time of this note: XR chest 2 views Final Result No acute cardiopulmonary disease. Report Dictated on Electronically Signed By: Obinna Jules MD Electronically Signed Date/Time: 07/14/2023 11:32 AM EST LABS: Labs Reviewed BASIC METABOLIC PANEL - Abnormal Result Value SODIUM 135 POTASSIUM 4.3 CHLORIDE 101 CARBON DIOXIDE 24 UREA NITROGEN 20 CREATININE 1.08 GLUCOSE 302 (*) CALCIUM 9.1 ANION GAP 11 eGFR 79.5 CBC WITH AUTO DIFFERENTIAL - Abnormal Auto WBC 5.8 RBC 4.97 Hemoglobin 15.5 Hematocrit 42.8 MCV 86.1 MCH 31.2 MCHC 36.2 (*) RDW 12.2 Platelets 230 MPV 9.4 nRBC 0.0 Neutrophils Relative 57.4 Lymphocytes Relative 34.1 Monocytes (more content not included)... Normal [facility] [employer] [facility] Laboratory - Chemistry and C hemistry - challengeon 07-14-2023 Troponin I.cardiac [Mass/Vol] ng/mL NINF - 0.034 ng/mL [employer] No Panel Informationon 07-14 P [place] 44 degrees [facility] NC Interval 147 ms [facility] QRS [place] 75 degrees [facility] QRSD Interval 110 ms [facility] QT Interval 388 ms [facility] QTC Interval 440 ms [facility] T Wave [place] 52 degrees [facility] Sinus rhythm No previous ECG available for comparison Electronically Signed On 07-14-2023 11:02:57 EST by David Shelby MD - 07/14/2023 IMPRESSION: Sinus rhythm No previous ECG available for comparison Electronically Signed On 07-14-2023 11:02:57 EST by David Marquez [facility] TROPONIN Ion 07-14-2023 Troponin I.cardiac [Mass/Vol] ng/mL Normal <0.034 [facility] Comment on above: Result Comment: GEE Lynn COMMENTS: Patients with high levels of Biotin oral intake (ie >5 mg/day) may have falsely decreased Troponin levels. Performed By: #### L [id number], [id number] #### Museum Or Zoo Director: BETTY LOWE ([id number]) [facility] (SWRLAB) [address] [place] [address] Troponin I.cardiac [Mass/Vol ]on 07-14-2023 Interpretation and review of laboratory results Normal [facility] Patients with high levels of Biotin oral intake (ie >5 mg/day) may have falsely decreased Troponin levels. [facility] Vital signson 07-14-2023 Heart rate 77 /min bpm [facility] XR Chest 2 Viewson No acute cardiopulmonary disease. Report Dictated on Electronically Signed By: Obinna Jules MD Electronically Signed Date/Time: 07/14/2023 11:32 AM [facility] [employer] SYSTEM Patient Name: FLORENCIA TAVAREZ : 1965 Exam Date/Time: 07/14/2023 11:13 Procedure: XR CHEST 2 VIEWS Ordering Provider: MARQUEZ NICHOLAS Reason For Exam: CHEST PAIN CHEST X-RAY PA/LATERAL CLINICAL INDICATION: CHEST PAIN TECHNIQUE: Frontal and lateral plain films of the chest were obtained. COMPARISON: None FINDINGS: Cardiomediastinal silhouette: Normal Lungs: Clear. Bones: Unremarkable [facility] RADIOLOGY SYSTEM Obinna Jules M D - 07/14/2023 [facility] 1965 [id number] Exam Date/Time: 07/14/2023 11:13 Procedure: XR CHEST 2 VIEWS Ordering Provider: MARQUEZ NICHOLAS Reason For Exam: CHEST PAIN CHEST X-RAY PA/LATERAL CLINICAL INDICATION: CHEST PAIN TECHNIQUE: Frontal and lateral plain films of the chest were obtained. COMPARISON: None FINDINGS: Cardiomediastinal silhouette: Normal Lungs: Clear. Bones: Unremarkable IMPRESSION: No acute cardiopulmonary disease. Report Dictated on Electronically Signed By: Obinna Jules MD Electronically Signed Date/Time: 07/14/2023 11:32 AM EST [employer] Radiology Study observation (narrative) [employer] XR Chest 2 ViewsOrdered By: Obinna Jules on 07-14-2023 [employer] Work Phone: LABORATORYOrdered By: Cassie Saez on 10-10-2021 Uric Acid Lvl 5.4 mg/dL Invalid Interpretation Code 3.5 - 7.2 mg/dL AO ADM SS CNOVon 06-12-2019 CNOV Office Visit (UCWSTR ) FLORENCIA TAVAREZ ([id number]) 1965 M Date Time Provider Department 06/12/19 7:30 AM MEY FELIPE During your visit today, we recorded the following information about you: Temperature Pulse Respiration Blood pressure 98.2 degrees 82/minute 16/minute 130/84 Weight 120.7 kg Mey Felipe APRN.HEALTH ASSOCIATE 06/12/2019 8:24 AM Signed Subjective HPI Florencia Tavarez is a 54 year old male who presents with left wrist and right elbow pain for the last 2 days. He suspects this is caused by gout as he has sustained no injuries to the affected areas. He does report old injuries in each area. Has been prescribed indomethacin from PCP for as needed use- he is out of this medicine. He is not a diabetic. No fever or chills, feels well otherwise. Review of Systems Constitutional: Negative for chills, fever and malaise/fatigue. Musculoskeletal: Positive for joint pain. Skin: Negative for itching and rash. Neurological: Negative for tingling, sensory change, focal weakness and weakness. BP 130/84 Pulse 82 Temp 36.8 ?C (98.2 ?F) (Tympanic) Resp 16 Wt 120.7 kg (266 lb 3.2 oz) SpO2 97% History reviewed. No pertinent past medical history. History reviewed. No pertinent surgical history. ALLERGIES Allopurinol; Seasonal Allergies MEDICATIONS celecoxib (CELEBREX) 200 mg capsule febuxostat (ULORIC) 40 mg tab meloxicam (MOBIC) 15 mg tablet Multivitamin capsule Take 1 capsule by mouth once daily. MOMETASONE FUROATE (NASONEX NASAL) Use in the nose. FEXOFENADINE/PSEUDOEP HEDRINE (ALEXANDRO-D 24 HOUR ORAL) Take by mouth. albuterol HFA (PROVENTIL HFA, VENTOLIN HFA) 90 mcg/actuation inhaler Inhale 2 Puffs as instructed every 4 hours as needed. guaiFENesin (MUCINEX) 600 mg 12 hr tablet Take 2 tablets by mouth twice daily. benzonatate (TESSALON PERLES) 100 mg capsule Take 1 capsule by mouth three times daily as needed. indomethacin ER 75 mg CR capsule Take 1 capsule by mouth twice daily with meals. History reviewed. No pertinent family history. Social History Tobacco Use - Smoking status: Never Smoker - Smokeless tobacco: Current User Types: Chew Substance Use Topics - Alcohol use: Not on file - Drug use: Not on file Objective Physical Exam Constitutional: He is oriented to person, place, and time and well-developed, well-nourished, and in no distress. HENT: Head: Normocephalic and atraumatic. Eyes: Conjunctivae are normal. Cardiovascular: Normal rate, regular rhythm, normal heart sounds and intact distal pulses. Exam reveals no gallop and no friction rub. No murmur heard. Pulses: Radial pulses are 2+ on the right side and 2+ on the left side. Pulmonary/Chest: Effort normal and breath sounds normal. No respiratory distress. He has no wheezes. He has no rales. He exhibits no tenderness. Musculoskeletal: General: Tenderness and edema present. Comments: Right elbow erythematous, warm and tender to the touch. Normal ROM. Left wrist slightly warm and tender to the touch, normal ROM. Lymphadenopathy: He has no cervical adenopathy. Neurological: He is alert and oriented to person, place, and time. He has normal sensation. Gait normal. Skin: Skin is warm and dry. No rash noted. He is not diaphoretic. There is erythema. ASSESSMENT/PLAN: 1. Acute gout of multiple sites, unspecified cause - ICD9: 274.01, ICD10: M10.9 - encouraged to follow up with PCP if no better in 3 days, red flags and reasons to go to ED reviewed - INDOMETHACIN ER 75 MG CAPSULE,EXTENDED RELEASE refilled for BID All of the above discussed with the patient in detail. Patient is in agreement with the above plan. Treatment and plan of care discussed including course of treatment, possible medication side effects, and what to watch for in regards to worsening signs and symptoms. All questions addressed. Mey Felipe APRN.GERMAN Felipe APRN.GERMAN 06/12/2019 8:01 AM Signed [facility] [address] [place] [address] Emergency Department Diagnosis: Assessment GOUT: You have an acute joint inflammation called gout. Gout is caused by uric acid crystals forming in the joint. Often uric acid levels in the blood are also elevated. Gout occurs most commonly in men and appears to be an inherited condition. Diuretics (water pills) tend to elevate blood uric acid levels and can cause similar joint problems. The big toe, foot, ankle, and knee are the joints most often affected. Treatment includes: - Rest and elevate the affected limb until the swelling and pain are better. Use a frame to keep the sheets off your leg as needed. - Anti-inflammatory medicine usually brings about dramatic relief of pain , redness, and swelling within 2-3 days. - Increase your fluid intake, avoid alcohol, and do not eat liver, sweetbreads, or sardines. - Long-term management may require medicine to lower blood uric acid levels or stopping diuretic therapy. Please see your doctor if your condition is not better after 1-2 days of treatment, or if you have fever, skin rash, diarrhea, or other joint pains. Referring Provider: SELF [200] Allergies As of Date: 06/12/2019 Noted Allergy Reaction ALLOPURINOL 06/12/2019 7 - Swelling Comments: Tongue swelled up SEASONAL ALLERGIES 02/13/2014 12 - Shortness of Breath Comments: rash Date Reviewed: 06/12/2019 Reviewed by: Mey Felipe - Fully Assessed Reason for Visit: Gout [239] Cmt: (left) wrist and (right) elbow x 2 days Primary Visit Diagnosis:Acute gout of multiple sites, unspecified cause [M10.9] Order(s):indomethacin ER 75 mg CR capsuleTake 1 capsule by mouth twice daily with meals.Disp: 20 capsuleRfl: 0 Prescriptions as of 06/12/2019 Sig: CELECOXIB 200 MG CAPSULE FEBUXOSTAT 40 MG TABLET MELOXICAM 15 MG TABLET MULTIVITAMIN CAPSULE Take 1 capsule by mouth once * NASONEX NASAL Use in the nose. ALEXANDRO-D 24 HOUR ORAL Take by mouth. INDOMETHACIN ER 75 MG CAPSULE* Take 1 capsule by mouth twice* Medication notes this encounter INDOMETHACIN ER 75 MG CAPSULE,EXTENDED RELEASE >> Sylvester Brooke Cma 06/12/2019 7:45 AM >> SYLVESTER BROOKE CMA Jun 12, 2019 7:45 AM Out of medication Problem List As Of Date: 06/12/2019 (None) Other instructions from your clinician: [facility] [address] [place], [place] [address] Emergency Department Diagnosis: Assessment GOUT: You have an acute joint inflammation called gout. Gout is caused by uric acid crystals forming in the joint. Often uric acid levels in the blood are also elevated. Gout occurs most commonly in men and appears to be an inherited condition. Diuretics (water pills) tend to elevate blood uric acid levels and can cause similar joint problems. The big toe, foot, ankle, and knee are the joints most often affected. Treatment includes: - Rest and elevate the affected limb until the swelling and pain are better. Use a frame to keep the sheets off your leg as needed. - Anti-inflammatory medicine usually brings about dramatic relief of pain , redness, and swelling within 2-3 days. - Increase your fluid intake, avoid alcohol, and do not eat liver, sweetbreads, or sardines. - Long-term management may require medicine to lower blood uric acid levels or stopping diuretic therapy. Please see your doctor if your condition is not better after 1-2 days of treatment, or if you have fever, skin rash, diarrhea, or other joint pains. Prescriptions ordered this encounter Disp Refills Start End INDOMETHACIN ER 75 MG CAPSULE,EXTEND* 20 c* 0 06/12/2019 Route: ORAL Sig: Take 1 capsule by mouth twice daily with meals. Medications Discontinued During This Encounter benzonatate (TESSALON PERLES) 100 mg* 40 c* 0 12/02/2018 06/12/2019 Route: ORAL Sig: Take 1 capsule by mouth three times daily as needed. Patient not taking: Reported on 06/12/2019 Disc: Course of therapy completed guaiFENesin (MUCINEX) 600 mg 12 hr t* 30 t* 0 12/02/2018 06/12/2019 Route: ORAL Sig: Take 2 tablets by mouth twice daily. Patient not taking: Reported on 06/12/2019 Disc: Course of therapy completed albuterol HFA (PROVENTIL HFA, VENTOL* 1 In* 0 12/02/2018 06/12/2019 Route: INHALATION Sig: Inhale 2 Puffs as instructed every 4 hours as needed. Patient not taking: Reported on 06/12/2019 Disc: Course of therapy completed indomethacin ER 75 mg CR capsule 20 c* 0 06/06/2016 06/12/2019 Route: ORAL Sig: Take 1 capsule by mouth twice daily with meals. Patient not taking: Reported on 06/12/2019 Disc: Reason for discontinue is not on file. Encounter Status:Closed by MEY FELIPE APRN.CNP on 06/12/19 [facility] PROGRESSon 06-12-2019 PROGRESS HNO ID: [id number] Author: Mey Felipe Service: ? Author Type: Nurse Practitioner Type: Progress Notes Filed: 06/12/2019 8:24 AM Note Text: Subjective HPI Florencia Tavarez is a 54 year old male who presents with left wrist and right elbow pain for the last 2 days. He suspects this is caused by gout as he has sustained no injuries to the affected areas. He does report old injuries in each area. Has been prescribed indomethacin from PCP for as needed use- he is out of this medicine. He is not a diabetic. No fever or chills, feels well otherwise. Review of Systems Constitutional: Negative for chills, fever and malaise/fatigue. Musculoskeletal: Positive for joint pain. Skin: Negative for itching and rash. Neurological: Negative for tingling, sensory change, focal weakness and weakness. BP 130/84 Pulse 82 Temp 36.8 ?C (98.2 ?F) (Tympanic) Resp 16 Wt 120.7 kg (266 lb 3.2 oz) SpO2 97% History reviewed. No pertinent past medical history. History reviewed. No pertinent surgical history. ALLERGIES Allopurinol; Seasonal Allergies MEDICATIONS celecoxib (CELEBREX) 200 mg capsule febuxostat (ULORIC) 40 mg tab meloxicam (MOBIC) 15 mg tablet Multivitamin capsule Take 1 capsule by mouth once daily. MOMETASONE FUROATE (NASONEX NASAL) Use in the nose. FEXOFENADINE/PSEUDOEP HEDRINE (ALEXANDRO-D 24 HOUR ORAL) Take by mouth. albuterol HFA (PROVENTIL HFA, VENTOLIN HFA) 90 mcg/actuation inhaler Inhale 2 Puffs as instructed every 4 hours as needed. guaiFENesin (MUCINEX) 600 mg 12 hr tablet Take 2 tablets by mouth twice daily. benzonatate (TESSALON PERLES) 100 mg capsule Take 1 capsule by mouth three times daily as needed. indomethacin ER 75 mg CR capsule Take 1 capsule by mouth twice daily with meals. History reviewed. No pertinent family history. Social History Tobacco Use - Smoking status: Never Smoker - Smokeless tobacco: Current User Types: Chew Substance Use Topics - Alcohol use: Not on file - Drug use: Not on file Objective Physical Exam Constitutional: He is oriented to person, place, and time and well-developed, well-nourished, and in no distress. HENT: Head: Normocephalic and atraumatic. Eyes: Conjunctivae are normal. Cardiovascular: Normal rate, regular rhythm, normal heart sounds and intact distal pulses. Exam reveals no gallop and no friction rub. No murmur heard. Pulses: Radial pulses are 2+ on the right side and 2+ on the left side. Pulmonary/Chest: Effort normal and breath sounds normal. No respiratory distress. He has no wheezes. He has no rales. He exhibits no tenderness. Musculoskeletal: General: Tenderness and edema present. Comments: Right elbow erythematous, warm and tender to the touch. Normal ROM. Left wrist slightly warm and tender to the touch, normal ROM. Lymphadenopathy: He has no cervical adenopathy. Neurological: He is alert and oriented to person, place, and time. He has normal sensation. Gait normal. Skin: Skin is warm and dry. No rash noted. He is not diaphoretic. There is erythema. ASSESSMENT/PLAN: 1. Acute gout of multiple sites, unspecified cause - ICD9: 274.01, ICD10: M10.9 - encouraged to follow up with PCP if no better in 3 days, red flags and reasons to go to ED reviewed - INDOMETHACIN ER 75 MG CAPSULE,EXTENDED RELEASE refilled for BID All of the above discussed with the patient in detail. Patient is in agreement with the above plan. Treatment and plan of care discussed including course of treatment, possible medication side effects, and what to watch for in regards to worsening signs and symptoms. All questions addressed. Mey Felipe, DOYLE.HEALTH ASSOCIATE [facility] OBSOLETEon 03-04-2019 OBSOLETE Refill (UCTR) FLORENCIA TAVAREZ ([id number]) 1965 M Date Time Provider Department 03/04/19 JESSICA FRAGOSO [facility] During your visit today, we recorded the following information about you: Allergies As of Date: 03/04/2019 Noted Allergy Reaction SEASONAL ALLERGIES 02/13/2014 12 - Shortness of Breath Comments: rash Date Reviewed: 12/02/2018 Reviewed by: Gaby Millan Ma - Fully Assessed Reason for Visit: Refill Request [94] Visit Diagnosis:Bronchitis [J40] Prescriptions as of 03/04/2019 Sig: ALBUTEROL SULFATE HFA 90 MCG/* Inhale 2 Puffs as instructed * GUAIFENESIN ER 600 MG TABLET,* Take 2 tablets by mouth twice* BENZONATATE 100 MG CAPSULE Take 1 capsule by mouth three* INDOMETHACIN ER 75 MG CAPSULE* Take 1 capsule by mouth twice* MULTIVITAMIN CAPSULE Take 1 capsule by mouth once * NASONEX NASAL Use in the nose. ALEXANDRO-D 24 HOUR ORAL Take by mouth. Problem List As Of Date: 03/04/2019 (None) Encounter Status:Closed by JESSICA JOSHI MA on 03/04/19 [facility] CNOVon 12-02-2018 CNOV Office Visit (UCWSTR ) FLORENCIA TAVAREZ ([id number]) 1965 M Date Time Provider Department 12/02/18 9:15 AM JESSICA FRAGOSO [facility] During your visit today, we recorded the following information about you: Temperature Pulse Respiration Blood pressure 98 degrees 72/minute 16/minute 132/76 Weight 118.8 kg Gaby Millan Ma 12/02/2018 10:35 AM Signed 2.5 solution aerosol treatment given per provider's orders. Prior to treatment O2 sat is 98%. Treatment completed. O2 sat is 99%. Tolerated well. Gaby Fragoso APRN.HEALTH ASSOCIATE 12/02/2018 10:57 AM Signed [facility] PATIENT INFO BRONCHITIS OVERVIEW Bronchitis develops when there is swelling and irritation of the bronchi, the large tubes that carry air to the lungs. There are two types of bronchitis: acute (sudden onset) and chronic (long-standing). Acute bronchitis often occurs with a viral infection, such as the common cold, and is sometimes called a chest cold . The most common symptom of acute bronchitis is a nagging cough. Treatment of acute bronchitis usually involves treating the symptoms, such as sore throat and congestion. Antibiotics do not help to eliminate acute bronchitis caused by a virus. Antiviral agents are useful in some cases of acute bronchitis due to influenza, but there are antiviral agents for other forms of viral bronchitis. BRONCHITIS CAUSES Most cases of bronchitis are caused by a viral infection of the upper airways, such as the common cold or the flu. Less commonly, a bacterium such as pertussis (whooping cough) is the cause. BRONCHITIS SYMPTOMS The most common symptoms of acute bronchitis include: ? A persistent cough; this may last 10 to 20 days ? Some people cough up mucus, which may be clear, yellow, or green in color Fever is not common in people with acute bronchitis. However, having a fever can be a sign of another condition, such as the flu or pneumonia. Conditions with similar features ? There are other conditions that have symptoms similar to those of acute bronchitis. ? Chronic cough ? A persistent cough that lasts more than eight weeks is considered a chronic cough, which is discussed in detail elsewhere. ? Chronic bronchitis ? Chronic bronchitis is defined as a cough that occurs on most days of the month for at least three months of the year during two consecutive years. ? Pneumonia ? Signs of pneumonia include fever and a fast heart and breathing rate. ? Postnasal drip ? Postnasal drip occurs when secretions drain from the sinuses into the throat. This can cause the throat to feel irritated, which causes you to feel like you need to clear your throat frequently. Postnasal drip can be caused by the common cold, allergies, sinusitis, or environmental irritants. BRONCHITIS DIAGNOSIS Most people who have a persistent cough after an upper respiratory infection (cold) do not need to see a healthcare provider. Diagnostic testing, such as x-rays, cultures, and blood tests, are not usually needed for people with acute bronchitis. However, testing may be recommended if your diagnosis is not clear based upon your examination or if another condition, such as pneumonia, is suspected. When to seek help ? You should call your healthcare provider if you have any of the following: ? Fever (temperature greater than 100.4? F or 38? C) ? A cough that lasts longer than 10 days ? Chest pain with coughing, difficulty breathing, or coughing up blood ? A barking cough that makes it hard to speak, especially if it persists ? Cough accompanied by unexplained weight loss People who are older than 75 do not always have a fever or other concerning symptoms. If you are over 75 years and you have a persistent cough, you should call your clinician to determine if and when an office visit is recommended. BRONCHITIS TREATMENT Relief of symptoms ? There is no specific treatment for bronchitis, but there are a few treatments available for the common cold. ? A nonsteroidal antiinflammatory drug (ibuprofen, naproxen), aspirin, or acetaminophen (Tylenol?) can help to relieve the pain of a sore throat or headache. ? Pseudoephedrine is a decongestant that can improve nasal congestion. Most drugstores in the [place] carry pseudoephedrine behind the counter, so you must ask for it from the pharmacist (a prescription is not required). Other decongestants, such as phenylephrine, are not as effective as pseudoephedrine. Antihistamines such as diphenhydramine (Benadryl?) may also help, but can cause side effects such as drowsiness and drying of the eyes, nose, and mouth. ? Heated, humidified, air can improve symptoms of nasal congestion and runny nose, and has few to no side effects. ? Cough suppressants such as dextromethorphan may be helpful. Antibiotics ? Antibiotics are NOT helpful for most people with bronchitis since the illness is typically caused by a virus. Antibiotics treat bacterial, not viral infections. Antibiotics may be helpful for some patients with other chronic diseases. Many people request antibiotics in the hopes that it will get rid of the cough, and some people even think that antibiotics have helped on previous occasions. However, there is no benefit of antibiotics for most cases of bronchitis. PREVENTING THE SPREAD OF ILLNESS Hand washing is an essential and highly effective way to prevent the spread of infection. Wet your hands with water and plain soap and rub them together for 15 to 30 seconds. Pay special attention to the fingernails, between the fingers, and the wrists. Rinse your hands thoroughly, and dry with a single use towel. Alcohol-based hand rubs are a good alternative for disinfecting hands if a sink is not available. Spread the hand rub over the entire surface of your hands, fingers, and wrists until dry. You can use hand rubs repeatedly without irritating the skin or losing effectiveness. Hand rubs are available as a liquid or wipe in small, portable sizes that are easy to carry in a pocket or handbag. When a sink is available, you should wash visibly soiled hands with soap and water. Wash your hands before preparing food and eating, and after going to the bathroom, and after coughing, blowing the nose, or sneezing. While it is not always possible to limit contact with people who are ill, avoid touching your eyes, nose, or mouth after direct contact, when possible. In addition, use a tissue to cover your mouth when sneezing or coughing. Throw away used tissues promptly and then wash your hands. Sneezing/coughing into the sleeve of your clothing (at the inner elbow) is another way of containing sprays of saliva and secretions and does not contaminate your hands. Sneezing and coughing without covering your mouth can spread infection to anyone within 6 feet. Jessica Frgaoso APRN.HEALTH ASSOCIATE 12/02/2018 2:43 PM Signed Subjective HPI Pt presents with c/o cough x 2 weeks. Cough is moist, occasionally produces yellowish drainage. +coughing fits. +chest tightness during coughing fits. Cough worse at HS. Denies fever, chills, myalgias, dyspnea, wheezing, sore throat, nasal congestion. Took 4 days of leftover amoxicillin with no improvement of sx. Has not tried any OTC cough suppressants or cough drops. Is scheduled for right knee arthroscopy December 10, 2018. No hx asthma, COPD, smoking. No known exposure to sick contacts. Review of Systems Constitutional: Negative for chills and fever. HENT: Negative for congestion, ear pain, sinus pain and sore throat. Respiratory: Positive for cough. Negative for hemoptysis, sputum production, shortness of breath and wheezing. Cardiovascular: Negative for chest pain. Objective Physical Exam Constitutional: He is oriented to person, place, and time and well-developed, well-nourished, and in no distress. No distress. HENT: Head: Normocephalic. Right Ear: Hearing, tympanic membrane, external ear and ear canal normal. Left Ear: Hearing, tympanic membrane, external ear and ear canal normal. Nose: Nose normal. Right sinus exhibits no maxillary sinus tenderness and no frontal sinus tenderness. Left sinus exhibits no maxillary sinus tenderness and no frontal sinus tenderness. Mouth/Throat: Uvula is midline, oropharynx is clear and moist and mucous membranes are normal. No oropharyngeal exudate. Eyes: Pupils are equal, round, and reactive to light. Conjunctivae are normal. Right eye exhibits no discharge. Left eye exhibits no discharge. Neck: Neck supple. Cardiovascular: Normal rate, regular rhythm and normal heart sounds. Exam reveals no gallop and no friction rub. No murmur heard. Pulmonary/Chest: Effort normal. No accessory muscle usage. No respiratory distress. He has decreased breath sounds (Good air movement throughout. Pulse ox 98% before albuterol treatment, 99% after.). He has no wheezes. He has rhonchi (scattered.). He has no rales. Lymphadenopathy: He has no cervical adenopathy. Neurological: He is alert and oriented to person, place, and time. Skin: Skin is warm and dry. He is not diaphoretic. BP 132/76 Pulse 72 Temp 36.7 ?C (98 ?F) (Tympanic) Resp 16 Wt 118.8 kg (262 lb) SpO2 98% .Patient presents with: Chest Congestion: cough x 2 weeks, knee surgery on 12/10 No past medical history on file. No past surgical history on file. ALLERGIES Seasonal Allergies MEDICATIONS indomethacin ER 75 mg CR capsule Take 1 capsule by mouth twice daily with meals. Multivitamin capsule Take 1 capsule by mouth once daily. MOMETASONE FUROATE (NASONEX NASAL) Use in the nose. FEXOFENADINE/PSEUDOEP HEDRINE (ALEXANDRO-D 24 HOUR ORAL) Take by mouth. albuterol HFA (PROVENTIL HFA, VENTOLIN HFA) 90 mcg/actuation inhaler Inhale 2 Puffs as instructed every 4 hours as needed. Inhalational Spacing Device spcr 1 Device one time only for 1 dose. guaiFENesin (MUCINEX) 600 mg 12 hr tablet Take 2 tablets by mouth twice daily. predniSONE (DELTASONE) 20 mg tablet Take 2 tablets by mouth once daily for 5 days. Take daily with food. benzonatate (TESSALON PERLES) 100 mg capsule Take 1 capsule by mouth three times daily as needed. No family history on file. Social History Tobacco Use - Smoking status: Never Smoker - Smokeless tobacco: Current User Types: Chew Substance Use Topics - Alcohol use: Not on file - Drug use: Not on file ASSESSMENT/PLAN: 1. Bronchitis - ICD9: 490, ICD10: J40 (primary diagnosis) - ALBUTEROL SULFATE HFA 90 MCG/ACTUATION AEROSOL INHALER - INHALATIONAL SPACING DEVICE - PREDNISONE 20 MG TABLET 2. Cough - ICD9: 786.2, ICD10: R05 - XR CHEST 2V FRONTAL/LAT Impression: no acute process. - ALBUTEROL SULFATE 2.5 MG/3 ML (0.083 %) SOLUTION FOR NEBULIZATION - GUAIFENESIN ER 600 MG TABLET, EXTENDED RELEASE 12 HR - BENZONATATE 100 MG CAPSULE Reviewed and printed bronchitis education. The patient is instructed to return or seek emergency treatment if symptoms become worse or with any acute change in condition. The patient verbalizes understanding and is in agreement with plan of care. Jessica Fragoso CNP Referring Provider: SELF [200] Allergies As of Date: 12/02/2018 Noted Allergy Reaction SEASONAL ALLERGIES 02/13/2014 12 - Shortness of Breath Comments: rash Date Reviewed: 12/02/2018 Reviewed by: Gaby Millan Ma - Fully Assessed Reason for Visit: Chest Congestion [236] Cmt: cough x 2 weeks, knee surgery on 12/10 Primary Visit Diagnosis:Bronchitis [J40] Other Visit Diagnosis:Cough [R05] Order(s):XR CHEST 2V FRONTAL/LAT [[id number]] Order #: [id number] FUTURE [] albuterol 2.5 mg /3 mL (0.083 %) 2.5 mg (PROVENTIL)Disp: Rfl: albuterol HFA (PROVENTIL HFA, VENTOLIN HFA) 90 mcg/actuation inhalerInhale 2 Puffs as instructed every 4 hours as needed.Disp: 1 InhalerRfl: 0 Inhalational Spacing Device spcr1 Device one time only for 1 dose.Disp: 1 EachRfl: 0 guaiFENesin (MUCINEX) 600 mg 12 hr tabletTake 2 tablets by mouth twice daily.Disp: 30 tabletRfl: 0 predniSONE (DELTASONE) 20 mg tabletTake 2 tablets by mouth once daily for 5 days. Take daily with food.Disp: 10 tabletRfl: 0 benzonatate (TESSALON PERLES) 100 mg capsuleTake 1 capsule by mouth three times daily as needed.Disp: 40 capsuleRfl: 0 Prescriptions as of 12/02/2018 Sig: INDOMETHACIN ER 75 MG CAPSULE* Take 1 capsule by mouth twice* MULTIVITAMIN CAPSULE Take 1 capsule by mouth once * NASONEX NASAL Use in the nose. ALEXANDRO-D 24 HOUR ORAL Take by mouth. ALBUTEROL SULFATE HFA 90 MCG/* Inhale 2 Puffs as instructed * INHALATIONAL SPACING DEVICE 1 Device one time only for 1 * GUAIFENESIN ER 600 MG TABLET,* Take 2 tablets by mouth twice* PREDNISONE 20 MG TABLET Take 2 tablets by mouth once * BENZONATATE 100 MG CAPSULE Take 1 capsule by mouth three* Problem List As Of Date: 12/02/2018 (None) Other instructions from your clinician: [facility] PATIENT INFO BRONCHITIS OVERVIEW Bronchitis develops when there is swelling and irritation of the bronchi, the large tubes that carry air to the lungs. There are two types of bronchitis: acute (sudden onset) and chronic (long-standing). Acute bronchitis often occurs with a viral infection, such as the common cold, and is sometimes called a chest cold . The most common symptom of acute bronchitis is a nagging cough. Treatment of acute bronchitis usually involves treating the symptoms, such as sore throat and congestion. Antibiotics do not help to eliminate acute bronchitis caused by a virus. Antiviral agents are useful in some cases of acute bronchitis due to influenza, but there are antiviral agents for other forms of viral bronchitis. BRONCHITIS CAUSES Most cases of bronchitis are caused by a viral infection of the upper airways, such as the common cold or the flu. Less commonly, a bacterium such as pertussis (whooping cough) is the cause. BRONCHITIS SYMPTOMS The most common symptoms of acute bronchitis include: ? A persistent cough; this may last 10 to 20 days ? Some people cough up mucus, which may be clear, yellow, or green in color Fever is not common in people with acute bronchitis. However, having a fever can be a sign of another condition, such as the flu or pneumonia. Conditions with similar features ? There are other conditions that have symptoms similar to those of acute bronchitis. ? Chronic cough ? A persistent cough that lasts more than eight weeks is considered a chronic cough, which is discussed in detail elsewhere. ? Chronic bronchitis ? Chronic bronchitis is defined as a cough that occurs on most days of the month for at least three months of the year during two consecutive years. ? Pneumonia ? Signs of pneumonia include fever and a fast heart and breathing rate. ? Postnasal drip ? Postnasal drip occurs when secretions drain from the sinuses into the throat. This can cause the throat to feel irritated, which causes you to feel like you need to clear your throat frequently. Postnasal drip can be caused by the common cold, allergies, sinusitis, or environmental irritants. BRONCHITIS DIAGNOSIS Most people who have a persistent cough after an upper respiratory infection (cold) do not need to see a healthcare provider. Diagnostic testing, such as x-rays, cultures, and blood tests, are not usually needed for people with acute bronchitis. However, testing may be recommended if your diagnosis is not clear based upon your examination or if another condition, such as pneumonia, is suspected. When to seek help ? You should call your healthcare provider if you have any of the following: ? Fever (temperature greater than 100.4? F or 38? C) ? A cough that lasts longer than 10 days ? Chest pain with coughing, difficulty breathing, or coughing up blood ? A barking cough that makes it hard to speak, especially if it persists ? Cough accompanied by unexplained weight loss People who are older than 75 do not always have a fever or other concerning symptoms. If you are over 75 years and you have a persistent cough, you should call your clinician to determine if and when an office visit is recommended. BRONCHITIS TREATMENT Relief of symptoms ? There is no specific treatment for bronchitis, but there are a few treatments available for the common cold. ? A nonsteroidal antiinflammatory drug (ibuprofen, naproxen), aspirin, or acetaminophen (Tylenol?) can help to relieve the pain of a sore throat or headache. ? Pseudoephedrine is a decongestant that can improve nasal congestion. Most drugstores in the [place] carry pseudoephedrine behind the counter, so you must ask for it from the pharmacist (a prescription is not required). Other decongestants, such as phenylephrine, are not as effective as pseudoephedrine. Antihistamines such as diphenhydramine (Benadryl?) may also help, but can cause side effects such as drowsiness and drying of the eyes, nose, and mouth. ? Heated, humidified, air can improve symptoms of nasal congestion and runny nose, and has few to no side effects. ? Cough suppressants such as dextromethorphan may be helpful. Antibiotics ? Antibiotics are NOT helpful for most people with bronchitis since the illness is typically caused by a virus. Antibiotics treat bacterial, not viral infections. Antibiotics may be helpful for some patients with other chronic diseases. Many people request antibiotics in the hopes that it will get rid of the cough, and some people even think that antibiotics have helped on previous occasions. However, there is no benefit of antibiotics for most cases of bronchitis. PREVENTING THE SPREAD OF ILLNESS Hand washing is an essential and highly effective way to prevent the spread of infection. Wet your hands with water and plain soap and rub them together for 15 to 30 seconds. Pay special attention to the fingernails, between the fingers, and the wrists. Rinse your hands thoroughly, and dry with a single use towel. Alcohol-based hand rubs are a good alternative for disinfecting hands if a sink is not available. Spread the hand rub over the entire surface of your hands, fingers, and wrists until dry. You can use hand rubs repeatedly without irritating the skin or losing effectiveness. Hand rubs are available as a liquid or wipe in small, portable sizes that are easy to carry in a pocket or handbag. When a sink is available, you should wash visibly soiled hands with soap and water. Wash your hands before preparing food and eating, and after going to the bathroom, and after coughing, blowing the nose, or sneezing. While it is not always possible to limit contact with people who are ill, avoid touching your eyes, nose, or mouth after direct contact, when possible. In addition, use a tissue to cover your mouth when sneezing or coughing. Throw away used tissues promptly and then wash your hands. Sneezing/coughing into the sleeve of your clothing (at the inner elbow) is another way of containing sprays of saliva and secretions and does not contaminate your hands. Sneezing and coughing without covering your mouth can spread infection to anyone within 6 feet. Visit Notes: >> Gaby Millan Ma Mon Dec 02, 2018 10:35 AM Status: Signed 2.5 solution aerosol treatment given per provider's orders. Prior to treatment O2 sat is 98%. Treatment completed. O2 sat is 99%. Tolerated well. Gaby Millan Ma Prescriptions ordered this encounter Disp Refills Start End ALBUTEROL SULFATE 2.5 MG/3 ML (0.083* 12/02/2018 12/02/2018 Route: INHALATION ALBUTEROL SULFATE HFA 90 MCG/ACTUATI* 1 In* 0 12/02/2018 Route: INHALATION Sig: Inhale 2 Puffs as instructed every 4 hours as needed. INHALATIONAL SPACING DEVICE 1 Ea* 0 12/02/2018 12/02/2018 [place]: [facility] [place] one time only for 1 dose. GUAIFENESIN ER 600 MG TABLET, EXTEND* 30 t* 0 12/02/2018 Route: ORAL Sig: Take 2 tablets by mouth twice daily. PREDNISONE 20 MG TABLET 10 t* 0 12/02/2018 12/07/2018 Route: ORAL Sig: Take 2 tablets by mouth once daily for 5 days. Take daily with food. BENZONATATE 100 MG CAPSULE 40 c* 0 12/02/2018 Route: ORAL Sig: Take 1 capsule by mouth three times daily as needed. Encounter Status:Closed by JESSICA FRAGOSO CNP on 12/02/18 [facility] PROGRESSon 12-02-2018 PROGRESS HNO ID: [id number] Author: Jessica Fragoso Service: ? Author Type: Nurse Practitioner Type: Progress Notes Filed: 12/02/2018 2:43 PM Note Text: Subjective HPI Pt presents with c/o cough x 2 weeks. Cough is moist, occasionally produces yellowish drainage. +coughing fits. +chest tightness during coughing fits. Cough worse at HS. Denies fever, chills, myalgias, dyspnea, wheezing, sore throat, nasal congestion. Took 4 days of leftover amoxicillin with no improvement of sx. Has not tried any OTC cough suppressants or cough drops. Is scheduled for right knee arthroscopy December 10, 2018. No hx asthma, COPD, smoking. No known exposure to sick contacts. Review of Systems Constitutional: Negative for chills and fever. HENT: Negative for congestion, ear pain, sinus pain and sore throat. Respiratory: Positive for cough. Negative for hemoptysis, sputum production, shortness of breath and wheezing. Cardiovascular: Negative for chest pain. Objective Physical Exam Constitutional: He is oriented to person, place, and time and well-developed, well-nourished, and in no distress. No distress. HENT: Head: Normocephalic. Right Ear: Hearing, tympanic membrane, external ear and ear canal normal. Left Ear: Hearing, tympanic membrane, external ear and ear canal normal. Nose: Nose normal. Right sinus exhibits no maxillary sinus tenderness and no frontal sinus tenderness. Left sinus exhibits no maxillary sinus tenderness and no frontal sinus tenderness. Mouth/Throat: Uvula is midline, oropharynx is clear and moist and mucous membranes are normal. No oropharyngeal exudate. Eyes: Pupils are equal, round, and reactive to light. Conjunctivae are normal. Right eye exhibits no discharge. Left eye exhibits no discharge. Neck: Neck supple. Cardiovascular: Normal rate, regular rhythm and normal heart sounds. Exam reveals no gallop and no friction rub. No murmur heard. Pulmonary/Chest: Effort normal. No accessory muscle usage. No respiratory distress. He has decreased breath sounds (Good air movement throughout. Pulse ox 98% before albuterol treatment, 99% after.). He has no wheezes. He has rhonchi (scattered.). He has no rales. Lymphadenopathy: He has no cervical adenopathy. Neurological: He is alert and oriented to person, place, and time. Skin: Skin is warm and dry. He is not diaphoretic. BP 132/76 Pulse 72 Temp 36.7 ?C (98 ?F) (Tympanic) Resp 16 Wt 118.8 kg (262 lb) SpO2 98% .Patient presents with: Chest Congestion: cough x 2 weeks, knee surgery on 12/10 No past medical history on file. No past surgical history on file. ALLERGIES Seasonal Allergies MEDICATIONS indomethacin ER 75 mg CR capsule Take 1 capsule by mouth twice daily with meals. Multivitamin capsule Take 1 capsule by mouth once daily. MOMETASONE FUROATE (NASONEX NASAL) Use in the nose. FEXOFENADINE/PSEUDOEP HEDRINE (ALEXANDRO-D 24 HOUR ORAL) Take by mouth. albuterol HFA (PROVENTIL HFA, VENTOLIN HFA) 90 mcg/actuation inhaler Inhale 2 Puffs as instructed every 4 hours as needed. Inhalational Spacing Device spcr 1 Device one time only for 1 dose. guaiFENesin (MUCINEX) 600 mg 12 hr tablet Take 2 tablets by mouth twice daily. predniSONE (DELTASONE) 20 mg tablet Take 2 tablets by mouth once daily for 5 days. Take daily with food. benzonatate (TESSALON PERLES) 100 mg capsule Take 1 capsule by mouth three times daily as needed. No family history on file. Social History Tobacco Use - Smoking status: Never Smoker - Smokeless tobacco: Current User Types: Chew Substance Use Topics - Alcohol use: Not on file - Drug use: Not on file ASSESSMENT/PLAN: 1. Bronchitis - ICD9: 490, ICD10: J40 (primary diagnosis) - ALBUTEROL SULFATE HFA 90 MCG/ACTUATION AEROSOL INHALER - INHALATIONAL SPACING DEVICE - PREDNISONE 20 MG TABLET 2. Cough - ICD9: 786.2, ICD10: R05 - XR CHEST 2V FRONTAL/LAT Impression: no acute process. - ALBUTEROL SULFATE 2.5 MG/3 ML (0.083 %) SOLUTION FOR NEBULIZATION - GUAIFENESIN ER 600 MG TABLET, EXTENDED RELEASE 12 HR - BENZONATATE 100 MG CAPSULE Reviewed and printed bronchitis education. The patient is instructed to return or seek emergency treatment if symptoms become worse or with any acute change in condition. The patient verbalizes understanding and is in agreement with plan of care. Jessica Fragoso CNP [facility] PROGRESS HNO ID: [id number] Author: Yoni Sagastume) Joanne Cárdenas Service: ? Author Type: Criminal Justice Teacher Type: Progress Notes Filed: 12/02/2018 10:23 AM Note Text: Radiology Service Progress Note PATIENT NAME: Florencia Tavarez DATE OF SERVICE: December 02, 2018 TIME: 10:19 AM PATIENT IDENTITY VERIFICATION COMPLETED USING TWO (2) METHODS: Patient confirmed name verbally and Date of . PATIENT GENDER DATA: Male PATIENT RELEVANT IMPLANT DATA REVIEWED: Not Applicable RADIOLOGY DEPARTMENT: General X-ray: Exam(s) Completed: Chest X-Ray PERIPHERAL IV DATA: Not applicable SIGNED BY: RT Ramesh December 02, 2018 10:19 AM [facility] XR CHEST 2V FRONTAL/LATon XR CHEST 2V FRONTAL/LAT * * *Final Report* * * DATE OF EXAM: Dec 02 2018 10:24AM WOX [id number] - XR CHEST 2V FRONTAL/LAT / PROCEDURE REASON: Cough * * * * Physician Interpretation * * * * EXAMINATION: CHEST RADIOGRAPH (2 VIEW FRONTAL and LATERAL) CLINICAL HISTORY: Cough MQ: XC2_5 Comparison: None RESULT: Lines, tubes, and devices: None. Lungs and pleura: No consolidation. No lung mass. No pleural effusion. Cardiomediastinal silhouette: Normal cardiomediastinal silhouette. Other: . IMPRESSION: No acute radiographic abnormality. [employer] Operator: LIZETTE Transcribe Date/Time: Dec 02 2018 10:52A Dictated by : ALVARO CARD MD This examination was interpreted and the report reviewed and electronically signed by: ALVARO CARD MD on Dec 02 2018 10:53AM EST [id number] [facility] Vital Signs Date Time Vital Sign Value Performing Clinician Arti khoury 12-07-2023 09:34-0400 Diastolic Blood Pressure Non-Invasive 84 mm[Hg] DR BRYAN LAMAS MD [facility] 12-07-2023 09:34-0400 Heart rate 58 /min DR BRYAN LAMAS MD [facility] 12-07-2023 09:34-0400 Respiratory rate 16 /min DR BRYAN LAMAS MD [facility] 12-07-2023 09:34-0400 Systolic Blood Pressure Non-Invasive 120 mm[Hg] DR BRYAN LAMAS MD [facility] 12-07-2023 09:23-0400 Body temperature 97.16 [degF] DR BRYAN LAMAS MD [facility] 12-07-2023 09:23-0400 Diastolic Blood Pressure Non-Invasive 80 mm[Hg] DR BRYAN LAMAS MD [facility] 12-07-2023 09:23-0400 Heart rate 53 /min DR BRYAN LAMAS MD [facility] 12-07-2023 09:23-0400 Respiratory rate 14 /min DR BRYAN LAMAS MD [facility] 12-07-2023 09:23-0400 Systolic Blood Pressure Non-Invasive 123 mm[Hg] DR BRYAN LAMAS MD [facility] 12-07-2023 09:18-0400 Diastolic Blood Pressure Non-Invasive 84 mm[Hg] DR BRYAN LAMAS MD [facility] 12-07-2023 09:18-0400 Heart rate 55 /min DR BRYAN LAMAS MD [facility] 12-07-2023 09:18-0400 Respiratory rate 13 /min DR BRYAN LAMAS MD [facility] 12-07-2023 09:18-0400 Systolic Blood Pressure Non-Invasive 134 mm[Hg] DR BRYAN LAMAS MD [facility] 12-07-2023 09:15-0400 Respiratory Rate - Anes 5 br/min DR BRYAN LAMAS MD [facility] 12-07-2023 09:10-0400 Respiratory Rate - Anes 18 br/min DR BRYAN LAMAS MD [facility] 12-07-2023 09:05-0400 Respiratory Rate - Anes 23 br/min DR BRYAN LAMAS MD [facility] 12-07-2023 07:48-0400 Body height [address] BRYAN LAMAS MD [facility] 12-07-2023 07:48-0400 Body temperature 97.16 [degF] DR BRYAN LAMAS MD [facility] 12-07-2023 07:48-0400 Body weight [address] BRYAN LAMAS MD [facility] 12-07-2023 07:48-0400 Body weight 30.46 kg/m2 DR BRYAN LAMAS MD [facility] 12-07-2023 07:48-0400 Heart rate 60 /min DR BRYAN LAMAS MD [facility] 07-14-2023 11:30-0500 Diastolic blood pressure 82 mm[Hg] David Marquez MD Work Phone: [facility] 07-14-2023 11:30-0500 Heart rate 82 /min David Marquez MD Work Phone: [facility] 07-14-2023 11:30-0500 SaO2% (BldA) [Mass fraction] 94 % David Marquez MD Work Phone: [facility] 07-14-2023 11:30-0500 Systolic blood pressure 124 mm[Hg] David Marquez MD Work Phone: [facility] 07-14-2023 10:46-0500 Body temperature 98.01 [degF] David Marquez MD Work Phone: [facility] 07-14-2023 10:46-0500 Body weight 106.59 kg David Mraquez MD Work Phone: [facility] 07-14-2023 10:46-0500 Respiratory rate 14 /min David Marquez MD Work Phone: [facility] 02-02-2022 11:48-0400 Diastolic Blood Pressure NBP 84 1 CHRISTIAN HECTOR MD [facility] 02-02-2022 11:48-0400 Heart rate 62 /min CHRISTIAN HECTOR MD [facility] 02-02-2022 11:48-0400 Systolic Blood Pressure NBP 132 1 CHRISTIAN HECTOR MD [facility] 02-02-2022 11:34-0400 Diastolic Blood Pressure NBP 81 1 CHRISTIAN HECTOR MD [facility] 02-02-2022 11:34-0400 Heart rate 60 /min CHRISTIAN HECTOR MD [facility] 02-02-2022 11:34-0400 Systolic Blood Pressure NBP 137 1 CHRISTIAN HECTOR MD [facility] 02-02-2022 11:13-0400 Diastolic Blood Pressure NBP 99 1 CHRISTIAN HECTOR MD [facility] 02-02-2022 11:13-0400 Heart rate 68 /min CHRISTIAN HECTOR MD [facility] 02-02-2022 11:13-0400 Systolic Blood Pressure NBP 141 1 CHRISTIAN HECTOR MD [facility] 02-02-2022 10:58-0400 Respiratory rate 15 /min CHRISTIAN HECTOR MD [facility] 02-02-2022 10:40-0400 Respiratory rate 11 /min CHRISTIAN HECTOR MD [facility] 02-02-2022 10:35-0400 Respiratory rate 21 /min CHRISTIAN HECTOR MD [facility] 02-02-2022 10:25-0400 Body temperature 96.98 [degF] CHRISTIAN HECTOR MD [facility] 02-02-2022 09:45-0400 Body temperature 96.8 [degF] CHRISTIAN HECTOR MD [facility] 02-02-2022 07:53-0400 Body height 182.9 cm CHRISTIAN HECTOR MD [facility] 02-02-2022 07:53-0400 Body temperature 96.98 [degF] CHRISTIAN HECTOR MD [facility] 02-02-2022 07:53-0400 Body weight 109.1 kg CHRISTIAN HECTOR MD [facility] 02-02-2022 07:53-0400 diastolic 91 mm[Hg] CHRISTIAN HECTOR MD [facility] 02-02-2022 07:53-0400 Heart rate 72 /min CHRISTIAN HECTOR MD [facility] 02-02-2022 07:53-0400 systolic 136 mm[Hg] CHRISTIAN HECTOR MD [facility] 01-25-2022 07:58-0400 Body height 182.9 cm CHRISTIAN HECTOR MD [facility] 01-25-2022 07:58-0400 Body weight 109.1 kg CHRISTIAN HECTOR MD [facility] 01-25-2022 07:58-0400 Body weight 32.61 kg/m2 CHRISTIAN HECTOR MD [facility] 01-25-2022 07:58-0400 diastolic 82 mm[Hg] CHRISTIAN HECTOR MD [facility] 01-25-2022 07:58-0400 Heart rate 80 /min CHRISTIAN HECTOR MD [facility] 01-25-2022 07:58-0400 Respiratory rate 20 /min CHRISTIAN HECTOR MD [facility] 01-25-2022 07:58-0400 systolic 114 mm[Hg] CHRISTIAN HECTOR MD [facility] Encounters Encounter Date Encounter Type Care Provider Facility Start: 04-08-2024 End: 04-08-2024 [facility] Facility:[facility] Start: 04-08-2024 End: 04-08-2024 Patient encounter procedure 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 [facility] Start: 12-07-2023 End: 12-07-[address] BRYAN LAMAS MD Facility:B Start: 12-07-2023 End: 12-07-[address] BRYAN LAMAS MD [facility] Start: 09-14-2023 ambulatory AUSTIN FINLEY DO Facil ity:B Start: 08-17-2023 End: 08-17-2023 ambulatory AUSTIN FINLEY DO Facility:[facility] Start: 08-17-2023 End: 08-17-2023 Patient encounter procedure AUSTIN FINLEY DO [facility] Start: 07-27-2023 End: 07-27-2023 ambulatory AUSTIN FINLEY DO Facility:[facility] Start: 07-27-2023 End: 07-27-2023 Patient encounter procedure AUSTIN FINLEY DO [facility] Start: 07-14-2023 End: 07-15-2023 Emergency department patient visit DAVID MARQUEZ [facility] Start: 07-14-2023 End: 07-14-2023 Subsequent hospital visit by physician 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 [facility] Start: 10-10-2021 End: 10-10-2021 Patient encounter procedure CHRISTIAN HECTOR MD [facility] Start: 08-04-2018 Emergency department patient visit UNKNOWN PROVIDER [facility] Procedures Date Procedure Procedure Detail Performing Clinician Start: 07-14-2023 Radiologic exam ches t 2 views David Marquez MD Work Phone: Start: 07-14-2023 Basic metabolic pane l calcium total David Marquez MD Work Phone: Start: 07-14-2023 Ecg routine ecg w/le ast 12 lds trcg only w/o i&r David Marquez MD Work Phone: Start: 04-03-2019 Umbilical hernioplasty CHRISTIAN HECTOR MD Appendectomy CHRISTIAN Aguilar Arthroscopy of knee CHRISTIAN GLASS MD Arthroscopy of knee CHRISTIAN GLASS MD Comment on above: Right Colonoscopy CHRISTIAN Aguilar Plan of Treatment Date Care Activity Detail Author Start: 03-01-2033 DTaP/Tdap/Td Vaccine s (2 - Td or Tdap) DTaP/Tdap/Td Vaccines (2 - Td or Tdap) [facility] Start: 2025 RSV Immunization age d 60 or older (1 - 1-dose 60+ series) RSV Immunization aged 60 or older (1 - 1-dose 60+ series) [facility] Start: 2023 Hepatitis B Vaccines (2 of 3 - 19+ 3-dose series) Hepatitis B Vaccines (2 of 3 - 19+ 3-dose series) [facility] Start: 02-09-2023 COVID-19 Vaccine ( - 2022- season) COVID-19 Vaccine ( season) [facility] Start: 2015 Zoster Vaccines (1 of 2) Zoster Vacc christiane (1 of 2) [facility] Start: 1983 Hepatitis C screening Hepatitis C Sc reening [facility] Start: 1977 Depression Screening Depression Scre ening [facility] Start: 1966 MMR Vaccines (1 of 1 - Standard series) MMR Vaccines (1 of 1 - Standard series) [facility] Start: 1965 HIV screening HIV Screening [facility] Start: 1965 Lipid panel Lipid Panel [facility] Start: 1965 Screening for malign ant neoplasm of colon [facility] Immunizations Immunization Date Immunization Notes Care Provider [facility] 03-01-2023 hepatitis A vaccine, adult dosage; Translations: [Havrix] AUSTIN FINLEY DO [facility] 03-01-2023 hepatitis B vaccine, adult dosage; Translations: [Engerix-B] AUSTIN FINLEY DO [facility] 03-01-2023 tetanus toxoid, redu nirav diphtheria toxoid, and acellular pertussis vaccine, adsorbed; Translations: [Boostrix (Tdap)] AUSTIN FINLEY DO [facility] Payers Date Payer Category Payer Private Health Insurance [facility] [id number] 2023-Present [address] [place] [address] Commercial [id number] 2023 Private Health Insurance [id number] 1965 Unknown [id number] 1965 Unknown [id number] 1965 Unknown [id number] 1965 Unknown [id number] 1965 Unknown [id number] 1965 Unknown [id number] Unknown Social History Date Type Detail Facility Tobacco Tobacco Use: DIMITRIS LY CHEWING. Type: CHEWING TOBACCO DAILY. Ready to change: No. [facility] Sex Assigned At Male [facility] Start: 01-25-2022 Tobacco smoking status Smokele ss tobacco user within last 30 days [facility] Tobacco smoking stat [facility] Never smoked tobacco [facility] Start: 08-04-2018 Alcohol intake Current non-dr manager clinical pharmacy of alcohol (finding) [facility] Start: 1965 Sex Assigned At Not on file [facility] Gender identity Not on file [facility] Medical Equipment Procedure Code Equipment Code Equipment Origin al Text Equipment Identifier Dates See Instructions , Dispense glucose test strips, #100, use 1 strip as directed daily to test blood sugar. Diagnosis: E11.9, # 100 EA, 3 Refill(s), Pharmacy: [facility]/pharmacy #[id number], New onset type 2 diabetes mellitus, 185, cm, 07/19/23 11:35:00 EST, Height, 107.3, kg, 07/19/23 11:35:00 EST, Dosing Weight Start: 07-19-2023 See Instructions , Dispense ultrafine lancets, #100, use 1 lancet daily to test blood sugar. Diagnosis: E11.9, # 100 EA, 3 Refill(s), Pharmacy: [facility]/pharmacy #[id number], New onset type 2 diabetes mellitus, 185, cm, 07/19/23 11:35:00 EST, Height, 107.3, kg, 07/19/23 11:35:00 EST, Dosing Weight Start: 07-19-2023 See Instructions , Dispense glucose test strips, #100, use 1 strip as directed daily to test blood sugar. Diagnosis: E11.9, # 100 EA, 3 Refill(s), Pharmacy: [facility]/pharmacy #[id number], New onset type 2 diabetes mellitus, 185, cm, 07/19/23 11:35:00 EST, Height, 107.3, kg, 07/19/23 11:35:00 EST, Dosing Weight Start: 07-19-2023 See Instructions , Dispense ultrafine lancets, #100, use 1 lancet daily to test blood sugar. Diagnosis: E11.9, # 100 EA, 3 Refill(s), [id number] New onset type 2 diabetes mellitus, 185, cm, 07/19/23 11:35:00 EST, Height, 107.3, kg, 07/19/23 11:35:00 EST, Dosing Weight Start: 07-19-2023 See Instructions , Dispense glucose test strips, #100, use 1 strip as directed daily to test blood sugar. Diagnosis: E11.9, # 100 EA, 3 Refill(s), [id number] New onset type 2 diabetes mellitus, 185, cm, 07/19/23 11:35:00 EST, Height, 107.3, kg, 07/19/23 11:35:00 EST, Dosing Weight Start: 07-19-2023 See Instructions , Dispense ultrafine lancets, #100, use 1 lancet daily to test blood sugar. Diagnosis: E11.9, # 100 EA, 3 Refill(s), Pharmacy: [facility]/pharmacy #[id number], New onset type 2 diabetes mellitus, 185, cm, 07/19/23 11:35:00 EST, Height, 107.3, kg, 07/19/23 11:35:00 EST, Dosing Weight Start: 07-19-2023 See Instructions , Dispense glucose test strips, #100, use 1 strip as directed daily to test blood sugar. Diagnosis: E11.9, # 100 EA, 3 Refill(s), Pharmacy: [facility]/pharmacy #[id number], New onset type 2 diabetes mellitus, 185, cm, 07/19/23 11:35:00 EST, Height, 107.3, kg, 07/19/23 11:35:00 EST, Dosing Weight Start: 07-19-2023 See Instructions , Dispense ultrafine lancets, #100, use 1 lancet daily to test blood sugar. Diagnosis: E11.9, # 100 EA, 3 Refill(s), Pharmacy: [facility]/pharmacy #[id number], New onset type 2 diabetes mellitus, 185, cm, 07/19/23 11:35:00 EST, Height, 107.3, kg, 07/19/23 11:35:00 EST, Dosing Weight Start: 07-19-2023 Functional Status Date Assessment Result Facility 12-07-2023 Functional Status Repositions self [facility] 12-07-2023 Functional Status Maintained, Less than 8 hours [facility] 02-02-2022 Functional Status left knee high [facility] 02-02-2022 Functional Status ice on [facility] 02-02-2022 Functional Status Maintained [facility] 01-25-2022 Functional Status Sensory Deficits None [facility] Mental Status Date Assessment Result Facility 12-07-2023 Mental Status Orientation Oriented x 4 [facility] 12-07-2023 Mental Status [facility] 02-02-2022 Mental Status Oriented x 4 [facility] 02-02-2022 Mental Status [facility] Clinical Notes 02-02-2022 to 12-07-2023 Note Date & Type Note Facility 12-07-2023 Evaluation + Plan note Extrac jayda from: Title:Clinical Document Author:BRYAN LAMAS Date:12/07/23 [facility] ADMISSION HISTORY AN D PHYSICIAL CHIEF COMPLAINT: HISTORY OF PRESENT ILLNESS: REVIEW OF SYSTEMS: ACTIVE PROBLEMS: (10) Benign lipomatous neoplasm of skin and subcutaneous tissue of right leg (1661473359) ED (erectile dysfunction) (2753250048) Gout (4418554452) Mass of soft tissue of lower leg (690737883) New onset type 2 diabetes mellitus (943906238) Osteoarthritis (8575122685) Screening for colon cancer (884689791) Screening for hyperlipidemia (446114570) Seasonal allergies (7275748065) Type 2 diabetes mellitus (080753600) MEDICATIONS: Active Inpt Meds: None Active PRN Meds: None One Time Meds: None Active IV Meds: Lactated Ringers Infusion 1,000 mL (LR 1,000 mL) Start: 12/07/23 7:45:00 EDT, Rate: 50 mL/hr, 12/07/23 7:45:00 EDT ALLERGIES: (1) allopurinol FAMILY HISTORY: SOCIAL HISTORY: PHYSICAL EXAM: VITALS: IbqjvdQzcuATTeekgZNBcJ3HMY5DjbqQj(kg) 12/06 07:4836.2--[id number]/03487.0 24 Hr Tmax: 36.2 at 12/06 07:48 36 Hr Tmax: 36.2 at 12/06 07:48 Vital Signs are the last 5 in the past 48 hours. Weights display the last 5 within 7 days. Initial Wt: 12/06 102.0 kg 224 lb Current Wt: 12/06 102.0 kg 224 lb GENERAL: HEENT: CARDIOVASCULAR: RESPIRATORY: ABDOMEN: EXREMETIES: NEUROLOGICAL: PSYCHIATRIC: LABS: No 36hr Lab Data DIAGNOSTICS: IMPRESSION: PLAN: History and Physical Update I have examined the patient; reviewed the H&P and there are no changes to the H&P unless noted below. Future Appointments Appointment Date:02/28/2024 10:30:00 AM Scheduled Provider:AUSTIN FINLEY DO Location:[facility] Appointment Type: OV Future Scheduled Tests Laboratory* Basic Metabolic Panel 07/27/23 * Prostate Specific Antigen 02/24/24 * A1C Hemoglobin 02/24/24 * Lipid Profile 07/27/23 * Lipid Profile 02/24/24 * Albumin/Creatinine Ratio, Random Urine 07/27/23 * Albumin/Creatinine Ratio, Random Urine 02/24/24 * Complete Metabolic Panel 02/24/24 [facility] 06-28-2024 Hospital Discharge instructions Patient Education 12/07/2023 09:17:29 Moderate Conscious Sedation, Adult, Care After Moderate Conscious Sedation, Adult, Care After These instructions provide you with information about caring for yourself after your procedure. Your health care provider may also give you more specific instructions. Your treatment has been plannedaccording to current medical practices, but problems sometimes occur. Call your health care provider if you have any problems or questions after your procedure. What can I expect after the procedure? After your procedure, it is common: To feel sleepy for several hours. To feel clumsy and have poor balance for several hours. To have poor judgment for several hours. To vomit if you eat too soon. Follow these instructions at home: For at least 24 hours after the procedure: Do not: ?Participate in activities where you could fall or become injured. ?Drive. ?Use heavy machinery. ?Drink alcohol. ?Take sleeping pills or medicines that cause drowsiness. ?Make important decisions or sign legal documents. ?Take care of children on your own. Rest. Eating and drinking Follow the diet recommended by your health care provider. If you vomit: ?Drink water, juice, or soup when you can drink without vomiting. ?Make sure you have little or no nausea before eating solid foods. General instructions Have a responsible adult stay with you until you are awake and alert. Take qvhu-zqj-rbyulos and prescription medicines only as told by your health care provider. If you smoke, do not smoke without supervision. Keep all follow-up visits as told by your health care provider. This is important. Contact a health care provider if: You keep feeling nauseous or you keep vomiting. You feel light-headed. You develop a rash. You have a fever. Get help right away if: You have trouble breathing. This information is not intended to replace advice given to you by your health care provider. Make sure you discuss any questions you have with your health care provider. Document Released: 03/18/2014 Document Revised: 05/10/2018 Document Reviewed: 09/16/2016 [employer] Patient Education 2020 Recombine. 12/07/2023 09:17:23 Colonoscopy, Adult, Care After, Vhnj-ow-Xgup Colonoscopy, Adult, Care After This sheet gives you information about how to care for yourself after your procedure. Your doctor may also give you more specific instructions. If you have problems or questions, call your doctor. What can I expect after the procedure? After the procedure, it is common to have: A small amount of blood in your poop for 24 hours. Some gas. Mild cramping or bloating in your belly. Follow these instructions at home: General instructions For the first 24 hours after the procedure: ?Do not drive or use machinery. ?Do not sign important documents. ?Do not drink alcohol. ?Do your daily activities more slowly than normal. ?Eat foods that are soft and easy to digest. Take epai-naa-pcpcwco or prescription medicines only as told by your doctor. To help cramping and bloating: Try walking around. Put heat on your belly (abdomen) as told by your doctor. Use a heat source that your doctor recommends, such as a moist heat pack or a heating pad. ?Put a towel between your skin and the heat source. ?Leave the heat on for 20 30 minutes. ?Remove the heat if your skin turns bright red. This is especially important if you cannot feel pain, heat, or cold. You can get burned. Eating and drinking Drink enough fluid to keep your pee (urine) clear or pale yellow. Return to your normal diet as told by your doctor. Avoid heavy or fried foods that are hard to digest. Avoid drinking alcohol for as long as told by your doctor. Contact a doctor if: You have blood in your poop (stool) 2 3 days after the procedure. Get help right away if: You have more than a small amount of blood in your poop. You see large clumps of tissue (blood clots) in your poop. Your belly is swollen. You feel sick to your stomach (nauseous). You throw up (vomit). You have a fever. You have belly pain that gets worse, and medicine does not help your pain. Summary After the procedure, it is common to have a small amount of blood in your poop. You may also have mild cramping and bloating in your belly. For the first 24 hours after the procedure, do not drive or use machinery, do not sign important documents, and do not drink alcohol. Get help right away if you have a lot of blood in your poop, feel sick to your stomach, have a fever, or have more belly pain. This information is not intended to replace advice given to you by your health care provider. Make sure you discuss any questions you have with your health care provider. Document Released: 06/30/2011 Document Revised: 03/28/2018 Document Reviewed: 02/19/2017 [employer] Patient Education 2020 Recombine. Follow Up Care 11/23/2023 12:55:50 With:BRYAN LAMAS MD Address: [address] [facility] [address] [place] [phone] When: Unknown Comments:repeat colonoscopy in 10 years. Call PCP with any problems. [facility] 06-28-2024 Summary of episode note Discharge Instructions Thank you for allowing [facility] to assist you with your healthcare needs. The following is importantdischarge information regarding your hospital visit. Your Care Team AUSTIN FINLEY DO What to do next Scheduled Follow-Up Appointments Appointment Type When With Where Contact Information StatusPC 02/28/2024 10:30 AM EDT AUSTIN FINLEY DO [facility] [address] [address] Confirmed Follow Up Appointments Follow Up with BRYAN LAMAS MD Where:[address] [facility] [address] [place] [address] [phone] Additional Information: repeat colonoscopy in 10 years. Call PCP with any problems. The Following Activity and Diet Have Been Ordered for You Discharge Activity - Ordered -- NO activity restrictions, 12/07/23 9:15:00 EDT Discharge Diet - Ordered -- Follow the post-operative/post-procedure diet instructions provided by your physician's office.,12/07/23 9:15:00 EDT The Following Equipment Has Been Ordered for You Discharge Home Equipment Discharge Wound Care - Ordered -- Follow the post-operative/post-procedure wound care instructions provided by your physician's office., 12/07/23 9:15:00 EDT The Following Treatments Have Been Ordered for You Discharge Labs No qualifying data available. Discharge Radiology No qualifying data available. Other Therapies No qualifying data available. Post Acute Orders No qualifying data available. Someone Will Contact You Regarding These Home Health Referrals No home referrals have been ordered for you. No one will call you. Allergies allopurinol Swelling of oral cavity structure Medications Please ask your primary doctor or pharmacist before taking any other medication not listed, including over the counter drugs, herbal medications, vitamins and or supplements as they may interact withyour home medications. What How Much When Why Instructions Last Dose Unchanged betamethasone topical (betamethasone valerate 0.1% topical cream) 1 application Topical Two (2) times a day Unchanged celecoxib (celecoxib 200 mg oral capsule) 1 cap by mouth Once a day as needed for Joint pain Do not take concurrently with indomethacin. Unchanged colchicine (colchicine 0.6 mg oral tablet) 1 tab(s) by mouth Once a day Gout, unspecified Duration: 100 Days Unchanged DME (Blood Glucose Test Machine) See instructions New onset type 2 diabetes mellitus Dispense 1 glucometer, use as directed daily to test blood sugar. Diagnosis: E11.9 Unchanged DME (Blood Glucose Test Strips) See instructions New onset type 2 diabetes mellitus Dispense glucose test strips, #100, use 1 strip as directed daily to test blood sugar. Diagnosis: E11.9 Unchanged DME (Lancets) See instructions New onset type 2 diabetes mellitus Dispense ultrafine lancets, #100, use 1 lancet daily to test blood sugar. Diagnosis: E11.9 Unchanged fexofenadine-pseudoephedrine (fexofenadine-pseudoephedrine 180 mg-240 mg oral tablet, extended release) 1 tab(s) by mouth Once a day Duration: 100 Days Unchanged indomethacin (indomethacin 75 mg oral capsule, extended release) 1 cap by mouth Two (2) times a day as needed for Gout attack Do not take concurrently with Celebrex. Unchanged metFORMIN (metFORMIN 1000 mg oral tablet (IR)) 1 tab(s) by mouth Two (2) times a day Duration: 60 Days Unchanged sildenafil (sildenafil 20 mg oral tablet) 1-5 tabs by mouth Every day as needed for Erectile dysfunction ED (erectile dysfunction) Duration: 30 Days Please take this list to your next doctor s visit. Bring all medications you take, including over the counter medications, herbals and other supplements with you to your doctor s visit. Patients and families are reminded to discard old lists and to update any records with all medication providers or retail pharmacies. Education Materials Moderate Conscious Sedation, Adult, Care After These instructions provide you with information about caring for yourself after your procedure. Your health care provider may also give you more specific instructions. Your treatment has been plannedaccording to current medical practices, but problems sometimes occur. Call your health care provider if you have any problems or questions after your procedure. What can I expect after the procedure? After your procedure, it is common: To feel sleepy for several hours. To feel clumsy and have poor balance for several hours. To have poor judgment for several hours. To vomit if you eat too soon. Follow these instructions at home: For at least 24 hours after the procedure: Do not: ? Participate in activities where you could fall or become injured. ? Drive. ? Use heavy machinery. ? Drink alcohol. ? Take sleeping pills or medicines that cause drowsiness. ? Make important decisions or sign legal documents. ? Take care of children on your own. Rest. Eating and drinking Follow the diet recommended by your health care provider. If you vomit: ? Drink water, juice, or soup when you can drink without vomiting. ? Make sure you have little or no nausea before eating solid foods. General instructions Have a responsible adult stay with you until you are awake and alert. Take fzyj-xhx-weyywzx and prescription medicines only as told by your health care provider. If you smoke, do not smoke without supervision. Keep all follow-up visits as told by your health care provider. This is important. Contact a health care provider if: You keep feeling nauseous or you keep vomiting. You feel light-headed. You develop a rash. You have a fever. Get help right away if: You have trouble breathing. This information is not intended to replace advice given to you by your health care provider. Make sure you discuss any questions you have with your health care provider. Document Released: 03/18/2014 Document Revised: 05/10/2018 Document Reviewed: 09/16/2016 [employer] Patient Education 2020 Recombine. Colonoscopy, Adult, Care After This sheet gives you information about how to care for yourself after your procedure. Your doctor may also give you more specific instructions. If you have problems or questions, call your doctor. What can I expect after the procedure? After the procedure, it is common to have: A small amount of blood in your poop for 24 hours. Some gas. Mild cramping or bloating in your belly. Follow these instructions at home: General instructions For the first 24 hours after the procedure: ? Do not drive or use machinery. ? Do not sign important documents. ? Do not drink alcohol. ? Do your daily activities more slowly than normal. ? Eat foods that are soft and easy to digest. Take aebx-ywq-vnxhbkl or prescription medicines only as told by your doctor. To help cramping and bloating: Try walking around. Put heat on your belly (abdomen) as told by your doctor. Use a heat source that your doctor recommends, such as a moist heat pack or a heating pad. ? Put a towel between your skin and the heat source. ? Leave the heat on for 20 30 minutes. ? Remove the heat if your skin turns bright red. This is especially important if you cannot feel pain, heat, or cold. You can get burned. Eating and drinking Drink enough fluid to keep your pee (urine) clear or pale yellow. Return to your normal diet as told by your doctor. Avoid heavy or fried foods that are hard to digest. Avoid drinking alcohol for as long as told by your doctor. Contact a doctor if: You have blood in your poop (stool) 2 3 days after the procedure. Get help right away if: You have more than a small amount of blood in your poop. You see large clumps of tissue (blood clots) in your poop. Your belly is swollen. You feel sick to your stomach (nauseous). You throw up (vomit). You have a fever. You have belly pain that gets worse, and medicine does not help your pain. Summary After the procedure, it is common to have a small amount of blood in your poop. You may also have mild cramping and bloating in your belly. For the first 24 hours after the procedure, do not drive or use machinery, do not sign important documents, and do not drink alcohol. Get help right away if you have a lot of blood in your poop, feel sick to your stomach, have a fever, or have more belly pain. This information is not intended to replace advice given to you by your health care provider. Make sure you discuss any questions you have with your health care provider. Document Released: 06/30/2011 Document Revised: 03/28/2018 Document Reviewed: 02/19/2017 Elsevier Patient Education 2020 [employer] Additional Information VACCINATE! IT SAVES LIVES! Members of the community who have not yet received the COVID-19 vaccine and would like to receive it can visit one of [facility] vaccine clinics. There are many vaccine clinic locations within the [facility]. For locations and available times, please visit [email or web address].coronavirus.[place].gov/. It is important to note that some COVID mobile vaccine clinics are held outdoors and may be canceled in rainy or stormy conditions. To learn more about pediatric vaccinations (ages 5-11), we invite you to visit the [facility] webpage. https://www.[email or web address].org/pages/[email or web address]-Ggyhu-Vonpahoenhv-Scnvzxuwii-Igjnz-Rqd stions.htmlTo learn more about the COVID-19 vaccine, we invite you to visit the CDC website for a list of frequently asked questions.https://www.cdc.gov/coronavirus/2019-ncov/vaccines/faq.html [facility] Patient Portal Access Instructions: Stay connected with your healthcare team and access your personal medical information anytime with the [facility] Patient Portal. Please follow the directions below to create your [facility] account: 1.Access the email account you provided upon registration to the hospital/physician office.2.Look for an invitation email from [facility].3.Open the email and access the invitation link: AcceptInvitation to [facility].4.Fill in the required panchal to create your account. To access your account, visit [employer]. Click the blue button labeled Access Patient Portal and then log in with the username and password that you created in the steps above. You will be able to view your test results, lab results, a summary of your visits, upcoming appointments and more. There is also a convenient messaging option where you can send secure messages to your p [employer]. In addition, you will have the ability to download any documents or summaries to your computer and/or send the information securely to a physician. Remember that your healthcare information is confidential, so carefully consider who you will allowto register on the [employer] Patient Portal for access to your information. You can also access the [facility] Patient Portal on the [employer] laurie. Simply click on Patient Portal and then log into your account. If you would like to receive a full copy of your medical records, please contact the [facility] Medical Records Department by calling [phone], Sunday through Sunday between 8 a.m. and 4:30 p.m. HOW TO SAFELY DISPOSE OF PRESCRIPTION MEDICATIONS Please use one of the following methods to safely dispose of your unused medications. 1.Use a drug disposal kit: the drug disposal pouch allows you to safely discard your old and unuseddrugs. Ask your nurse to give you one when you are discharged.2.Visit a local take-back location: Many local pharmacies and police departments have programs that collect old and unwanted prescriptiondrugs. Call your local pharmacy or go to http://Justin[employer]/9U9Vf7t to find one close to you.3.Make use of household items: Use cat litter or old coffee grounds to dispose medications if other options arenot available. Mix your drugs with these household products, seal them in an airtight container andthrow it into the garbage. Call [facility]: [phone] to be sure your drugs can be disposed of in this way. Some medicines may require a different approach.4.Never flush your medications down the toilet. IF YOU HAVE BEEN PRESCRIBED AN OPIOID FOR PAIN If you have been prescribed an opioid (such as hydrocodone, oxycodone or morphine), it is critical to understand the possible side effects and risks of opioid pain medications. Even when taken as directed, opioids can have several side effects including: Tolerance, meaning you might need to take more of a medication for the same pain relief. Nausea, vomiting and/or constipation. Sleepiness, dizziness, dry mouth, confusion, depression or itching. Physical dependence, meaning you have withdrawal symptoms when a medication is stopped, can develop within a few days. KNOW YOUR RESPONSIBILITIES It is important to know exactly how much and how often to take the opioid pain medications you are prescribed. Never take opioids in higher amounts or more often than prescribed. Do not combine opioids with alcohol or other drugs that cause drowsiness, such as benzodiazepines, also known as benzos, including diazepam and alprazolam, muscle relaxants or sleep aids. Never sell or share prescription opioids. This is illegal. Store opioids in a secure place and out of reach of others (including children, family, friends and visitors). The last page of this document has been signed and retained as a CHART COPY. Signatures Patient Education Materials Moderate Conscious Sedation, Adult, Care After Colonoscopy, Adult, Care After, Cysi-cg-Jkdw Medication Leaflets My discharge plan and instructions have been reviewed and explained to me and IDAYSI JEFFERSON T understand my current condition and have read and understand these discharge instructions. I have received a written copy of the plan/instructions. If I have questions, I am aware that I should contact my doctor. 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 Scope was advanced from the rectum all the way to the cecum without difficulty. The patient had an excellent preparation there was good visualization of the colon. Was withdrawn from the cecum there were no obvious large polyps seen throughout the transverse colon mucosa may normal also splenic flexure there was diverticulosis and myochosis. Retroflexion performed the rectum showed internal hemorrhoids. Colon was decompressed and the patient tolerated the procedure. Post-Procedure Exam [place] colonoscopy Findings No large polyps detected Complications No obvious complications noted Total Time Approximately 25 minutes Assessment/Plan Orders: Lactated Ringers Infusion 1,000 mL(LR 1,000 mL), 1000 mL, Intravenous Bedrest, 12/07/23 9:15:00 EDT, Strict, continuous, Constant order, Lying on side until alert or as ordered Bedrest, 12/07/23 9:15:00 EDT, Strict, continuous, Constant order, Lying on side until alert or as ordered Call Parameters, 12/07/23 9:15:00 EDT, Notify for vomiting, severe pain, signs of bleeding, severe abdominal pain, distention or rigidity, Constant order Communication Order (scheduled), 12/07/23 7:45:00 EDT, Once, 12/07/23 7:45:00 EDT, Pathology TissueRequest Communication Order (scheduled), 12/07/23 7:45:00 EDT, Once, 12/07/23 7:45:00 EDT, Urine Test or waiver for women of child bearing age Communication Order (scheduled), 12/07/23 7:45:00 EDT, Once, 12/07/23 7:45:00 EDT, Fasting Blood Sugar priot to procedure of patient is diabetic Diet Order, 12/07/23 9:15:00 EDT, Start Meal: Next meal, Clear Liquid Diet, Post exam or after gag reflex returns if EGD, Constant Order, : N/A, : N/A Discharge, 12/07/23 7:45:00 EDT, Discharged to: Home, when able to ambulate and after being seen byphysician Discharge Activity, NO activity restrictions, 12/07/23 9:15:00 EDT Discharge Diet, Follow the post-operative/post-procedure diet instructions provided by your physician's office., 12/07/23 9:15:00 EDT Discharge Wound Care, Follow the post-operative/post-procedure wound care instructions provided by your physician's office., 12/07/23 9:15:00 EDT Post Procedure Assessment, 12/07/23 9:15:00 EDT, Stop Date 12/07/23 9:15:00 EDT, [facility] in [facility] until Sally Score of 12 or Preprocedure Sign Consent, 12/07/23 7:45:00 EDT, Once, For Colonoscopy Vital Signs, 12/07/23 9:15:00 EDT, q15min, 1 hour(s), 12/07/23 10:00:00 EDT Vital Signs, 12/07/23 9:15:00 EDT, q30min, 1 hour(s), 12/07/23 10:00:00 EDT Vital Signs PRN, 12/07/23 9:15:00 EDT, PRN order Digitally Signed by BRYAN LAAMS MD on 12/07/2023 09:17 AM [facility]06-28-2024 Anesthesiology Consult note Patient: FLORENCIA TAVAREZ Age: 58 years Sex: Male : 1965 Associated Diagnoses: None Author: DARRIAN FELDMAN Assessment Postanesthesia assessment Mental status: alert & oriented x 4. Respiratory function: lungs are clear to auscultation. Respiratory support: none. CV function: Normal rate. Cardiovascular support: none. Pain. Nausea status: denies nausea. Postoperative hydration status: within normal limits. Digitally Signed by DARRIAN FELDMAN on 12/07/2023 09:17 AM [facility]06-28-2024 Note [place] ADMISSION HISTORY AND PHYSICIAL CHIEF COMPLAINT: HISTORY OF PRESENT ILLNESS: REVIEW OF SYSTEMS: ACTIVE PROBLEMS: (10) Benign lipomatous neoplasm of skin and subcutaneous tissue of right leg (5670993415) ED (erectile dysfunction) (2849995270) Gout (6282266809) Mass of soft tissue of lower leg (166132466) New onset type 2 diabetes mellitus (951731752) Osteoarthritis (7161373026) Screening for colon cancer (715321883) Screening for hyperlipidemia (124393620) Seasonal allergies (4807753563) Type 2 diabetes mellitus (272808684) MEDICATIONS: Active Inpt Meds: None Active PRN Meds: None One Time Meds: None Active IV Meds: Lactated Ringers Infusion 1,000 mL (LR 1,000 mL) Start: 12/07/23 7:45:00 EDT, Rate: 50 mL/hr, 12/07/23 7:45:00 EDT ALLERGIES: (1) allopurinol FAMILY HISTORY: SOCIAL HISTORY: PHYSICAL EXAM: VITALS: [id number](kg) 12/06 07:4836.2--[id number]/98765.0 24 Hr Tmax: 36.2 at 12/06 07:48 36 Hr Tmax: 36.2 at 12/06 07:48 Vital Signs are the last 5 in the past 48 hours. Weights display the last 5 within 7 days. Initial Wt: 12/06 102.0 kg 224 lb Current Wt: 12/06 102.0 kg 224 lb GENERAL: HEENT: CARDIOVASCULAR: RESPIRATORY: ABDOMEN: EXREMETIES: NEUROLOGICAL: PSYCHIATRIC: LABS: No 36hr Lab Data DIAGNOSTICS: IMPRESSION: PLAN: History and Physical Update I have examined the patient; reviewed the H&P and there are no changes to the H&P unless noted below. Digitally Signed by BRYAN LAMAS MD on 12/07/2023 08:58 AM [facility]06-28-2024 Anesthesiology Consult note Patient: FLORENCIA TAVAREZ Age: 58 years Sex: Male : 1965 Associated Diagnoses: None Author: DARRIAN FELDMAN APRN-PERSONAL INJURY LITIGATION [place] Preoperative Information Time of last food or liquid consumption: 12/07/2023 05:30:00 Anesthesia history Patient's history: negative. Family's history: negative. Review of Systems Ear/Nose/Mouth/Throat: Negative. Respiratory: Negative. Cardiovascular: Negative. Gastrointestinal: Negative. Genitourinary: Negative. Endocrine: dm2. Musculoskeletal: gout. Integumentary: Negative. Neurologic: Negative. Health Status Allergies: Allergic Reactions (Selected) Severity Not Documented Allopurinol- Swelling of oral cavity structure., Allergies (1) ActiveSeverityReaction allopurinolSwelling of oral cavity structure Current medications: (Selected) Prescriptions Prescribed Blood Glucose Test Machine: See Instructions, Dispense 1 glucometer, use as directed daily to test blood sugar. Diagnosis: E11.9, 1 EA, 0 Refill(s) Blood Glucose Test Strips: See Instructions, Dispense glucose test strips, #100, use 1 strip as directed daily to test blood sugar. Diagnosis: E11.9, 100 EA, 3 Refill(s) Lancets: See Instructions, Dispense ultrafine lancets, #100, use 1 lancet daily to test blood sugar. Diagnosis: E11.9, 100 EA, 3 Refill(s) betamethasone valerate 0.1% topical cream: 1 laurie, Topical, BID, 15 gram(s), 1 Refill(s) celecoxib 200 mg oral capsule: 200 mg, 1 cap(s), Oral, qDay, Do not take concurrently with indomethacin., PRN: Joint pain, 90 cap(s), 3 Refill(s) colchicine 0.6 mg oral tablet: 0.6 mg, 1 tab(s), Oral, qDay, for 100 day(s), 100 tab(s), 1 Refill(s) fexofenadine-pseudoephedrine 180 mg-240 mg oral tablet, extended release: 1 tab(s), Oral, qDay, akj604 day(s), 100 tab(s), 3 Refill(s) indomethacin 75 mg oral capsule, extended release: 75 mg, 1 cap(s), Oral, BID, Do not take concurrently with Celebrex., PRN: Gout attack, 180 cap(s), 0 Refill(s) metFORMIN 1000 mg oral tablet (IR): 1,000 mg, 1 tab(s), Oral, BID, for 60 day(s), 120 tab(s), 1 Refill(s) sildenafil 20 mg oral tablet: 1-5 tabs, Oral, Daily, for 30 day(s), PRN: Erectile dysfunction, 30 tab(s), 2 Refill(s), No qualifying data available Problem list: Medical Gout / SNOMED CT 5996650525 / Confirmed ED (erectile dysfunction) / SNOMED CT 1627440911 / Confirmed Benign lipomatous neoplasm of skin and subcutaneous tissue of right leg / SNOMED CT 9412466385 / Confirmed Mass of soft tissue of lower leg / SNOMED CT 369902003 / Confirmed Screening for colon cancer / SNOMED CT 196642537 / Confirmed Screening for hyperlipidemia / SNOMED CT 716390917 / Confirmed Seasonal allergies / SNOMED CT 5510302077 / Confirmed New onset type 2 diabetes mellitus / SNOMED CT 910741731 / Confirmed Type 2 diabetes mellitus / SNOMED CT 028004017 / Confirmed, Active Problems (10) Benign lipomatous neoplasm of skin and subcutaneous tissue of right leg ED (erectile dysfunction) Gout Mass of soft tissue of lower leg New onset type 2 diabetes mellitus Osteoarthritis Screening for colon cancer Screening for hyperlipidemia Seasonal allergies Type 2 diabetes mellitus Histories Past Medical History: Resolved Umbilical hernia without obstruction or gangrene ([id number]): Resolved. Family History: Breast cancer Mother Diabetes mellitus type 2 Father Complex regional pain syndrome Son Procedure history: Repair of umbilical hernia using surgical mesh ([id number]) on 04/03/2019 at 54 Years. Appendectomy (087931136). Arthroscopy of knee (368647657). Comments: 01/25/2022 8:17 EDT - Tana Miller RN Right Colonoscopy ([id number]). Social History: Social & Psychosocial Habits Alcohol 12/07/2023 Frequency: 1-2 times per week 12/07/2023isk Assessment: High Risk Employment/School 10/24/2023 Status: Employed Substance Abuse 12/07/2023 Use: Never 4Risk Assessment: No Risk Tobacco 12/07/2023isk Assessment: High Risk 12/07/2023 Tobacco Use: DAILY CHEWING Type: Oral (Snuff, Chew) Ready to change: No Smokeless tobacco use: Smokeless tobacco user wi Exercise 10/24/2023 Exercise type: Aerobics, Jogging/Running Times per week: 3-4 times/week Home/Environment 12/07/2023 Domestic Concerns None Living situation: Home/Independent Lives In Single level home Nutrition/Health 12/07/2023 Type of diet: Regular Appetite Good Eating Difficulties None Caffeine intake amount: 1 serving of coffee a day Physical Examination Vital Signs 12/07/2023 7:48 EDT Temperature Temporal Artery 36.2 DegC Apical Heart Rate 60 bpm Respiratory Rate 13 br/min LOW Systolic Blood Pressure Non-Invasive 121 mmHg Diastolic Blood Pressure Non-Invasive 84 mmHg Vital Signs (last 24 hrs) Last Charted Temp Lanniisz24.2 DegC (DEC 06 07:48) Heart Rate Ohiwva31 bpm (DEC 06 07:48) AXT324 mmHg (DEC 06 07:48) DBP84 mmHg (DEC 06 07:48) BMI30.46 (DEC 06 07:48) Measurements from flowsheet : Measurements 12/07/2023 7:48 EDT Height 183 cm Admission Weight 102 kg [place] Body Weight 77.71 kg BSA Admission 2.24 Body Mass Index 30.46 kg/m2 Pain assessment: Pain Assessment 12/07/2023 7:48 EDT Primary Pain Intensity 0 Pain Scale Type 0-10 Pain scale . General: Alert and oriented. Airway: Normal temporomandibular joint mobility. Mallampati classification: III (soft palate, base of uvula visible). Head: Normocephalic. Dentition Evaluation: Own teeth. Neck: Supple. Respiratory: Lungs are clear to auscultation. Cardiovascular: Normal rate. Heart Sounds: Normal. Gastrointestinal: Soft. Musculoskeletal Normal range of motion. Integumentary: Intact. Neurologic: Alert, Oriented. 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 Form Signed Yes Patient Dressed In Hospital gown History & Physical Update On Chart Yes History & Physical On Chart Yes Obstructive Sleep Apnea Assess Completed No Belongings At Bedside Shoes, Shorts, T-shirt, Undergarments Positioning Repositions self Activity Status ADL Awake NPO Status Maintained, Less than 8 hours Standard Safety ID band on, Allergy Band on, Call device within reach, Bed in low position, Wheels locked, Visitor at bedside, Safety level maintained Allergy Band on and Verified Yes Patient ID Band on and Verified Yes Implants Verified No Anesthesia Consent Signed Yes Last Fluid Intake 12/07/2023 5:30 Last Food Intake 12/06/2023 12:00 Last Void 12/07/2023 7:00 12/07/2023 7:48 EDT Designated Person #1 We May Share [facility] September Daysi [phone] Designated Person #1 Relationship Spouse Height 183 cm Admission Weight 102 kg [place] Body Weight 77.71 kg BSA Admission 2.24 Body Mass Index 30.46 kg/m2 Temperature Temporal Artery 36.2 DegC Apical Heart Rate 60 bpm Respiratory Rate 13 br/min LOW Systolic Blood Pressure Non-Invasive 121 mmHg Diastolic Blood Pressure Non-Invasive 84 mmHg Primary Pain Intensity 0 Pain Scale Type 0-10 Pain scale Oxygen Therapy Room air Oxygen Saturation 97 % Status N/A Sensory Deficits None Infectious Disease Symptoms Patient states no symptoms Infectious Disease Recent Exposure No Alcohol and Drug Use No Employee of Institutional Living No Health Care 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 No History of Exposure to TB No History of Positive Chest X-Ray for TB No History of Positive TB Skin Test No Homeless No Known Immunosuppression No Recent Immigrant No Resident of Institutional Living No Bloody Sputum No Fatigue No Fever No Loss of Appetite No Night Sweats No Persistent Cough > 3 Weeks No Weight Loss No Barriers to Learning None evident Teaching Method Explanation, Printed materials Preferred Spoken Language Faroese Preferred Written Language Faroese Information Given by Patient Patient's Current Physicians Patient's Current Physicians Discharge To, Anticipated Home with family care Prev Test Positive/Diagnosis w/COVID-19 Yes Previous COVID-19 Positive Date 2022 Current Quarantine/Isolated any Illness No Any Contact with Sick Animals/Birds No Traveled Anywhere in Last 30 Days Yes Travel Where Within [place] State(s) [place] N/A Personal Devices, Patient Valuables None Admission Note-Nursing Procedure/Therapy Intake . Assessment and Plan Citizen Of [place] Society of Anesthesiologists (ASA) physical status classification: Class II. Anesthetic Preoperative Plan Anesthetic technique: MAC. Postoperative pain management: Per surgeon. Informed consent: signed by patient. Digitally Signed by DARRIAN FELDMAN on 12/07/2023 08:04 AM [facility]02-03-2024 Hospital Discharge instructions* Discharge Instructions* David Marquez MD - 07/14/2023 11:58 AM EST Acetaminophen Tylenol or ibuprofen Advil as needed for pain. Ask Dr. Christian to follow-up on your elevated blood sugar. * Attachments The following attachments cannot be sent through Care Everywhere. * High Blood Sugar Discharge Instructions, Adult (Faroese) * Chest Pain, Adult ED (Faroese) documented in this [facility]02-03-2024 Emergency department Note* David Marquez MD - 07/14/2023 10:36 AM EST EMERGENCY DEPARTMENT ENCOUNTER Pt Name: Florencia Tavarez Birthdate 1965 Date of evaluation: 07/14/2023 ED Provider: David Marquez MD CHIEF COMPLAINT Chief Complaint Patient presents with Chest Pain History from patient and HISTORY OF PRESENT ILLNESS (Location/Symptom, Timing/Onset, Context/Setting, Quality, Duration, Modifying Factors, Severity) Note limiting factors. I wore appropriate PPE for the entirety of this encounter. HPI Florencia Tavarez is a 58 y.o. who presents to the emergency department complaining of chest pain. States that beginning 2 days ago he had dull mild aching intermittent pain in the left side of his chest. No fever injury. Pain last for several minutes. Nothing makes it better nothing makes it worse. No exertional chest pain or shortness of breath. No history of cardiac pulmonary blood clot or aortic disease. Cardiac risk factor includes chewing tobacco but no smoking tobacco. [place] but no other travel or immobilization this week. No familyhistory of heart disease or blood clots. No swelling of his legs or shortness of breath. No diaphoresis or palpitations. Told his about it this morning and she was concerned this may be cardiac origin so came to the emergency department. PCP not available this weekend Nursing Notes were reviewed. Limitations to history: None Outside historians: Family REVIEW OF SYSTEMS Review of Systems Constitutional: Negative for fever. Eyes: Negative for visual disturbance. Respiratory: Negative for apnea, cough, choking, chest tightness, shortness of breath, wheezing andstridor. Cardiovascular: Positive for chest pain. Negative for palpitations and leg swelling. Gastrointestinal: Negative for abdominal pain. Genitourinary: Negative for difficulty urinating and flank pain. Musculoskeletal: Negative for back pain and neck pain. Skin: Negative for rash. Neurological: Negative for seizures, speech difficulty, weakness, numbness and headaches. Pertinent positives and negatives as per HPI PAST MEDICAL HISTORY Past Medical History: Diagnosis Date Gout SURGICAL HISTORY Past Surgical History: Procedure Laterality Date APPENDECTOMY KNEE SURGERY Right CURRENT MEDICATIONS Previous Medications No medications on file ALLERGIES Allopurinol FAMILY HISTORY No family history on file. SOCIAL HISTORY Social History Socioeconomic History Marital status: Tobacco Use Smoking status: Never Smokeless tobacco: Never Substance and Sexual Activity Alcohol use: No Drug use: No SCREENINGS HEART Score History: Slightly suspicious ECG: Normal Age: 45-64 Risk Factors: 1-2 risk factors Troponin: Less than or equal to normal limit HEART Score: 2 PHYSICAL EXAM ED Triage Vitals [07/14/23 1046] Temp Heart Rate Resp BP 36.7 C (98 F) 77 14 (!) 144/97 SpO2 Temp Source Heart Rate Source Patient Position 95 % Oral -- -- BP Location FiO2 (%) Right arm -- Physical Exam Constitutional: Appearance: He is well-developed. HENT: Head: Normocephalic and atraumatic. Eyes: Extraocular Movements: Extraocular movements intact. Pupils: Pupils are equal, round, and reactive to light. Neck: Thyroid: No thyromegaly. Vascular: No JVD. Cardiovascular: Rate and Rhythm: Normal rate. Abdominal: Palpations: Abdomen is soft. There is no mass. Tenderness: There is no abdominal tenderness. Musculoskeletal: General: Normal range of motion. Cervical back: Normal range of motion. Lymphadenopathy: Cervical: No cervical adenopathy. Skin: General: Skin is warm and dry. Neurological: General: No focal deficit present. Mental Status: He is alert. Not febrile not toxic Lungs clear and equal no rales or rhonchi Heart regular rate and rhythm no murmurs or rubs No pulse delays No Homans' sign or cords No focal neurologic deficit DIAGNOSTIC RESULTS Procedures/EKG: EKG was reviewed by myself. Physician EKG interpretation can be found in [facility] RADIOLOGY (Per Emergency Physician): Chest x- ray - no acute process Interpretation per the Radiologist below, if available at the time of this note: XR chest 2 views Final Result No acute cardiopulmonary disease. Report Dictated on Electronically Signed By: Obinna Jules MD Electronically Signed Date/Time: 07/14/2023 11:32 AM EST LABS: Labs Reviewed BASIC METABOLIC PANEL - Abnormal Result Value SODIUM 135 POTASSIUM 4.3 CHLORIDE 101 CARBON DIOXIDE 24 UREA NITROGEN 20 CREATININE 1.08 GLUCOSE 302 (*) CALCIUM 9.1 ANION GAP 11 eGFR 79.5 CBC WITH AUTO DIFFERENTIAL - Abnormal Auto WBC 5.8 RBC 4.97 Hemoglobin 15.5 Hematocrit 42.8 MCV 86.1 MCH 31.2 MCHC 36.2 (*) RDW 12.2 Platelets 230 MPV 9.4 nRBC 0.0 Neutrophils Relative 57.4 Lymphocytes Relative 34.1 Monocytes Relative 5.9 Eosinophils Relative 1.4 Basophils Relative 1.0 Immature Grans % 0.2 (*) Neutrophils Absolute 3.3 Lymphocytes Absolute 2.0 Monocytes Absolute 0.3 Eosinophils Absolute 0.1 Basophils Absolute 0.1 Immature Grans Absolute 0.0 TROPONIN I - Normal TROPONIN I <0.012 Narrative: Patients with high levels of Biotin oral intake (ie >5 mg/day) may have falsely decreased Troponin levels. All other labs were within normal range or not returned as of this dictation. EMERGENCY DEPARTMENT COURSE and DIFFERENTIAL DIAGNOSIS/MDM: Vitals: Vitals: 07/14/23 1046 07/14/23 1130 BP: (!) 144/97 124/82 BP Location: Right arm Left arm Patient Position: Sitting Pulse: 77 82 Resp: 14 Temp: 36.7 C (98 F) TempSrc: Oral SpO2: 95% 94% Weight: 107 kg (235 lb) Medications - No data to display Medical Decision Making and ED Course The patient presented with a chief complaint of chest pain. The differential diagnosis associated with this patient's presentation includes myocardial ischemia myocarditis pericarditis pneumonia pneumothorax pulmonary embolism aortic dissection. Our workup consisted of ordering/reviewing history physical examination labs and EKG. physical examination showed no rubs there is been no recent viral illness making pericarditis or myocarditis less likely. Even though he traveled from [place] that consisted of 2 flights none of which were more than 3000 miles so his risk factors for pulmonary embolism is low, no family history of blood clots and no Mac signs or cords. He has normal normal aortic arch on imaging and no neurologic deficits or pulse delays making dissection less likely. Imaging shows no pneumonia pleural effusion or pneumothorax. EKG and troponin not consistent with myocardial ischemia. No evidence of anemia. He has no clinically significant electrolyte abnormality or renal insufficiency. He does have a significant hyperglycemia with no history of diabetes. This will need outpatient workup would not explain his symptoms today. Patient agrees with symptomatic treatment and PCP follow-up as an outpatient. Diagnostic tests and medications considered but not ordered: History and physical examination make aortic dissection and pulmonary embolism less likely so D-dimer and imaging not ordered. Independent test interpretation by me: EKG chest x-ray with which showed no acute process Chronic conditions impacting care: Gout which should not affect his current symptoms ED Medications managed: none Consideration of hospitalization or de-escalation of care: Heart score 2 means patient has very lowrisk for major cardiac event and does not meet criteria for hospitalization today. REVAL: 11:53 AM All data now available and reviewed with patient. FINAL IMPRESSION 1. Acute chest pain 2. Hyperglycemia DISPOSITION Discharge 07/14/2023 11:57:21 AM PATIENT REFERRED TO: Austin Finley DO [address] [place] [address] Physicians [facility] [id number] In 4 days DISCHARGE MEDICATIONS: New Prescriptions No medications on file (Comment: Please note this report has been produced using speech recognition software and may contain errors related to that system including errors in grammar, punctuation, and spelling, as well as words and phrases that may be inappropriate. If there are any questions or concerns please feel freeto contact the dictating provider for clarification.) David Marquez MD (electronically signed) Emergency Medicine Provider David Marquez MD 07/14/23 1229 * Poornima Verdin RN - 07/14/2023 10:36 AM EST Pt ambulatory to room 4 with c/o chest tightness, sudden onset yesterday. Pt describes the tightness over left chest wall with no modifying factors. Pt denies any shortness of breath, dizziness, lightheadedness, nausea, vomiting. Pt reports that he did have recent flight yesterday. 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 EKG obtained. documented in this [facility]02-03-2024 Emergency department Triage note* Poornima Verdin RN - 07/14/2023 10:36 AM EST Pt ambulatory to room 4 with c/o chest tightness, sudden onset yesterday. Pt describes the tightness over left chest wall with no modifying factors. Pt denies any shortness of breath, dizziness, lightheadedness, nausea, vomiting. Pt reports that he did have recent flight yesterday. 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 [facility]. [id number] Emergency department Note* David Marquez MD - 07/14/2023 10:36 AM EST EMERGENCY DEPARTMENT ENCOUNTER Pt Name: Florencia Tavarez Birthdate 1965 Date of evaluation: 07/14/2023 ED Provider: David Marquez MD CHIEF COMPLAINT Chief Complaint Patient presents with Chest Pain History from patient and HISTORY OF PRESENT ILLNESS (Location/Symptom, Timing/Onset, Context/Setting, Quality, Duration, Modifying Factors, Severity) Note limiting factors. I wore appropriate PPE for the entirety of this encounter. HPI Florencia Tavarez is a 58 y.o. who presents to the emergency department complaining of chest pain. States that beginning 2 days ago he had dull mild aching intermittent pain in the left side of his chest. No fever injury. Pain last for several minutes. Nothing makes it better nothing makes it worse. No exertional chest pain or shortness of breath. No history of cardiac pulmonary blood clot or aortic disease. Cardiac risk factor includes chewing tobacco but no smoking tobacco. [place] but no other travel or immobilization this week. No familyhistory of heart disease or blood clots. No swelling of his legs or shortness of breath. No diaphoresis or palpitations. Told his about it this morning and she was concerned this may be cardiac origin so came to the emergency department. PCP not available this weekend Nursing Notes were reviewed. Limitations to history: None Outside historians: Family REVIEW OF SYSTEMS Review of Systems Constitutional: Negative for fever. Eyes: Negative for visual disturbance. Respiratory: Negative for apnea, cough, choking, chest tightness, shortness of breath, wheezing andstridor. Cardiovascular: Positive for chest pain. Negative for palpitations and leg swelling. Gastrointestinal: Negative for abdominal pain. Genitourinary: Negative for difficulty urinating and flank pain. Musculoskeletal: Negative for back pain and neck pain. Skin: Negative for rash. Neurological: Negative for seizures, speech difficulty, weakness, numbness and headaches. Pertinent positives and negatives as per HPI PAST MEDICAL HISTORY Past Medical History: Diagnosis Date Gout SURGICAL HISTORY Past Surgical History: Procedure Laterality Date APPENDECTOMY KNEE SURGERY Right CURRENT MEDICATIONS Previous Medications No medications on file ALLERGIES Allopurinol FAMILY HISTORY No family history on file. SOCIAL HISTORY Social History Socioeconomic History Marital status: Tobacco Use Smoking status: Never Smokeless tobacco: Never Substance and Sexual Activity Alcohol use: No Drug use: No SCREENINGS HEART Score History: Slightly suspicious ECG: Normal Age: 45-64 Risk Factors: 1-2 risk factors Troponin: Less than or equal to normal limit HEART Score: 2 PHYSICAL EXAM ED Triage Vitals [07/14/23 1046] Temp Heart Rate Resp BP 36.7 C (98 F) 77 14 (!) 144/97 SpO2 Temp Source Heart Rate Source Patient Position 95 % Oral -- -- BP Location FiO2 (%) Right arm -- Physical Exam Constitutional: Appearance: He is well-developed. HENT: Head: Normocephalic and atraumatic. Eyes: Extraocular Movements: Extraocular movements intact. Pupils: Pupils are equal, round, and reactive to light. Neck: Thyroid: No thyromegaly. Vascular: No JVD. Cardiovascular: Rate and Rhythm: Normal rate. Abdominal: Palpations: Abdomen is soft. There is no mass. Tenderness: There is no abdominal tenderness. Musculoskeletal: General: Normal range of motion. Cervical back: Normal range of motion. Lymphadenopathy: Cervical: No cervical adenopathy. Skin: General: Skin is warm and dry. Neurological: General: No focal deficit present. Mental Status: He is alert. Not febrile not toxic Lungs clear and equal no rales or rhonchi Heart regular rate and rhythm no murmurs or rubs No pulse delays No Homans' sign or cords No focal neurologic deficit DIAGNOSTIC RESULTS Procedures/EKG: EKG was reviewed by myself. Physician EKG interpretation can be found in [facility] RADIOLOGY (Per Emergency Physician): Chest x- ray - no acute process Interpretation per the Radiologist below, if available at the time of this note: XR chest 2 views Final Result No acute cardiopulmonary disease. Report Dictated on Electronically Signed By: Obinna Jules MD Electronically Signed Date/Time: 07/14/2023 11:32 AM EST LABS: Labs Reviewed BASIC METABOLIC PANEL - Abnormal Result Value SODIUM 135 POTASSIUM 4.3 CHLORIDE 101 CARBON DIOXIDE 24 UREA NITROGEN 20 CREATININE 1.08 GLUCOSE 302 (*) CALCIUM 9.1 ANION GAP 11 eGFR 79.5 CBC WITH AUTO DIFFERENTIAL - Abnormal Auto WBC 5.8 RBC 4.97 Hemoglobin 15.5 Hematocrit 42.8 MCV 86.1 MCH 31.2 MCHC 36.2 (*) RDW 12.2 Platelets 230 MPV 9.4 nRBC 0.0 Neutrophils Relative 57.4 Lymphocytes Relative 34.1 Monocytes Relative 5.9 Eosinophils Relative 1.4 Basophils Relative 1.0 Immature Grans % 0.2 (*) Neutrophils Absolute 3.3 Lymphocytes Absolute 2.0 Monocytes Absolute 0.3 Eosinophils Absolute 0.1 Basophils Absolute 0.1 Immature Grans Absolute 0.0 TROPONIN I - Normal TROPONIN I <0.012 Narrative: Patients with high levels of Biotin oral intake (ie >5 mg/day) may have falsely decreased Troponin levels. All other labs were within normal range or not returned as of this dictation. EMERGENCY DEPARTMENT COURSE and DIFFERENTIAL DIAGNOSIS/MDM: Vitals: Vitals: 07/14/23 1046 07/14/23 1130 BP: (!) 144/97 124/82 BP Location: Right arm Left arm Patient Position: Sitting Pulse: 77 82 Resp: 14 Temp: 36.7 C (98 F) TempSrc: Oral SpO2: 95% 94% Weight: 107 kg (235 lb) Medications - No data to display Medical Decision Making and ED Course The patient presented with a chief complaint of chest pain. The differential diagnosis associated with this patient's presentation includes myocardial ischemia myocarditis pericarditis pneumonia pneumothorax pulmonary embolism aortic dissection. Our workup consisted of ordering/reviewing history physical examination labs and EKG. physical examination showed no rubs there is been no recent viral illness making pericarditis or myocarditis less likely. Even though he traveled from [place] that consisted of 2 flights none of which were more than 3000 miles so his risk factors for pulmonary embolism is low, no family history of blood clots and no Mac signs or cords. He has normal normal aortic arch on imaging and no neurologic deficits or pulse delays making dissection less likely. Imaging shows no pneumonia pleural effusion or pneumothorax. EKG and troponin not consistent with myocardial ischemia. No evidence of anemia. He has no clinically significant electrolyte abnormality or renal insufficiency. He does have a significant hyperglycemia with no history of diabetes. This will need outpatient workup would not explain his symptoms today. Patient agrees with symptomatic treatment and PCP follow-up as an outpatient. Diagnostic tests and medications considered but not ordered: History and physical examination make aortic dissection and pulmonary embolism less likely so D-dimer and imaging not ordered. Independent test interpretation by me: EKG chest x-ray with which showed no acute process Chronic conditions impacting care: Gout which should not affect his current symptoms ED Medications managed: none Consideration of hospitalization or de-escalation of care: Heart score 2 means patient has very lowrisk for major cardiac event and does not meet criteria for hospitalization today. REVAL: 11:53 AM All data now available and reviewed with patient. FINAL IMPRESSION 1. Acute chest pain 2. Hyperglycemia DISPOSITION Discharge 07/14/2023 11:57:21 AM PATIENT REFERRED TO: Austin Finley DO [address] [place] [address] Physicians [facility] [id number] In 4 days DISCHARGE MEDICATIONS: New Prescriptions No medications on file (Comment: Please note this report has been produced using speech recognition software and may contain errors related to that system including errors in grammar, punctuation, and spelling, as well as words and phrases that may be inappropriate. If there are any questions or concerns please feel freeto contact the dictating provider for clarification.) David Marquez MD (electronically signed) Emergency Medicine Provider David Marquez MD 07/14/23 1229 [facility]08-25-2022 Hospital Discharge instructions Patient Education 02/02/2022 10:47:44 Hand Washing, [id number] Hand Washing Germs such as bacteria, viruses, and parasites are found everywhere. They can be in the air and water. They can also be on surfaces like food, door handles, and your skin. Every day, your hands touchgerms. Many of these germs can make you and your family sick. Washing your hands is one of the bestways to lower your risk of getting and sharing germs. When should I wash my hands? You should wash your hands whenever you think they are dirty. You should also wash your hands: Before: ?Visiting a baby or anyone with a weakened disease-fighting system (immunesystem). ?Putting in and taking out contact lenses. After: ?Using the bathroom or helping someone else use the bathroom. ?Working or playing outside. ?Touching or taking out the garbage. ?Touching anything dirty around your home. ?Sneezing, coughing, or blowing your nose. ?Using a phone, including your mobile phone. ?Touching an animal, animal food, animal poop, or its toys or leash. ?Touching money. ?Using household manager data warehouse or poisonous chemicals. ?Handling dirty clothes, bedding, or rags. ?Using public transportation. ?Going shopping, especially if you use a shopping cart or basket. ?Shaking hands. ?Handling livestock, such as cows or sheep. Before and after: ?Preparing food. ?Eating. ?Visiting or taking care of someone who is sick. This includes touching used tissues, toys, and clothes. ?Changing a bandage (dressing). ?Taking care of an injury or wound. ?Giving or taking medicine. ?Preparing a bottle for a baby. ?Feeding a baby or young child. ?Changing a diaper. What is the right way to wash my hands? 1.Wet your hands with clean, running water. Turn off the water or move your hands out of the running water. 2.Apply liquid soap or bar soap to your hands. 3.Rub your hands together quickly to create lather. 4.Keep rubbing your hands together for at least 20 seconds. Thoroughly scrub all parts of your hands. This includes scrubbing under your fingernails and between your fingers. 5.Rinse your hands with clean, running water. Do this until all the soap is gone. 6.Dry your hands using an air dryer or a clean paper or cloth towel, or let your hands air-dry. Do not use your clothing or a dirty towel to dry your hands. If you are in a public restroom, use your towel: To turn off the water faucet. To open the bathroom door. How can I clean my hands if I do not have soap and water? If soap and clean water are not available, use a hand-washing wipe, spray, or gel (hand portrait photographer).Use one that contains at least 60% alcohol. If you are handling food, gels are not recommended as areplacement for hand washing with soap and water. To use these products, follow the directions on the product, and: Apply enough product to cover your hands. Make sure you wipe, rub, or spray the product so that it reaches every part of your hands and wrists. Include the backs of your hands, between your fingers, and under your fingernails. Rub the product onto your hands until it dries. Summary Every day, your hands touch germs. Many of these germs can make you and your family sick. Washing your hands is one of the best ways to lower your risk of getting and sharing germs. If soap and clean water are not available, use a hand-washing wipe, spray, or gel. This information is not intended to replace advice given to you by your health care provider. Make sure you discuss any questions you have with your health care provider. Document Released: 05/10/2009 Document Revised: 03/06/2018 Document Reviewed: 03/06/2018 [employer] Patient Education 2020 Recombine. 02/02/2022 10:46:40 How to Use Compression Stockings How to Use Compression Stockings Compression stockings are elastic socks that squeeze the legs. They help increase blood flow (circulation) to the legs, decrease swelling in the legs, and reduce the chance of developing blood clots in the lower legs. Compression stockings are often used by people who: Are recovering from surgery. Have poor circulation in their legs. Tend to get blood clots in their legs. Have bulging (varicose) veins. Sit or stay in bed for long periods of time. Follow instructions from your health care provider about how and when to wear your compression stockings. How to wear compression stockings Before you put on your compression stockings: Make sure that they are the correct size and degree of compression. If you do not know your size orrequired grade of compression, ask your health care provider and follow the porcelain slusher's instructions that come with the stockings. Make sure that they are clean, dry, and in good condition. Check them for rips and tears. Do not put them on if they are ripped or torn. Put your stockings on first thing in the morning, before you get out of bed. Keep them on for as long as your health care provider advises. When you are wearing your stockings: Keep them as smooth as possible. Do not allow them to bunch up. It is especially important to prevent the stockings from bunching up around your toes or behind your knees. Do not roll the stockings downward and leave them rolled down. This can decrease blood flow to yourleg. Change them right away if they become wet or dirty. When you take off your stockings, inspect your legs and feet. Check for: Open sores. Red spots. Swelling. General tips Do not stop wearing compression stockings without talking to your health care provider first. Wash your stockings every day with mild detergent in cold or warm water. Do not use bleach. Air-dryyour stockings or dry them in a clothes dryer on low heat. It may be helpful to have two pairs so that you have a pair to wear while the other is being washed. Replace your stockings every 3 6 months. If skin moisturizing is part of your treatment plan, apply lotion or cream at night so that your skin will be dry when you put on the stockings in the morning. It is harder to put the stockings on when you have lotion on your legs or feet. Wear nonskid shoes or slip-resistant socks when walking while wearing compression stockings. Contact a health care provider and remove your stockings if you have: A feeling of pins and needles in your feet or legs. Open sores, red spots, or other skin changes on your feet or legs. Swelling or pain that gets worse. Get help right away if you have: Numbness or tingling in your lower legs that does not get better right after you take the stockingsoff. Toes or feet that are unusually cold or turn a bluish color. A warm or red area on your leg. New swelling or soreness in your leg. Shortness of breath. Chest pain. A fast or irregular heartbeat. Light-headedness. Dizziness. Summary Compression stockings are elastic socks that squeeze the legs. They help increase blood flow (circulation) to the legs, decrease swelling in the legs, and reduce the chance of developing blood clots in the lower legs. Follow instructions from your health care provider about how and when to wear your compression stockings. Do not stop wearing your compression stockings without talking to your health care provider first. This information is not intended to replace advice given to you by your health care provider. Make sure you discuss any questions you have with your health care provider. Document Released: 03/25/2010 Document Revised: 05/30/2018 Document Reviewed: 05/30/2018 [employer] Patient Education 2020 Recombine. 02/02/2022 10:46:32 How to Use Cold Therapy, [id number] How to Use Cold Therapy Cold therapy, or cryotherapy, is a treatment that uses cold temperatures to treat an injury or medical condition. It includes using cold packs or ice packs to reduce pain and swelling. Only use cold therapy if your doctor says it is okay. What are the risks? Generally, cold therapy is a safe treatment. However, it is not safe for: People who are not able to say they are in pain. These include small children and people who have memory problems. People who have certain conditions, such as: ?A problem in the vessels that slows blood flow to the fingers and toes (Raynaud's syndrome). ?Feeling very cold easily (cold hypersensitivity). ?Lack of feeling in the area being iced. Cold therapy may not be safe for people who have other conditions. Do not use it without talking toyour doctor if you have: A heart condition. High blood pressure. Open or healing wounds. An infection. Pain and swelling in your joints (rheumatoid arthritis). Poor blood flow in the body. Diabetes. Certain skin conditions. How can I make a cold pack? When using a cold pack at home to reduce pain and swelling, you can use: A silica gel cold pack that has been left in the freezer. You can buy this online or in stores. A sealable plastic bag that has been filled with crushed ice. A washcloth or paper towels soaked in cold (or ice) water. A plastic bag of frozen vegetables. Throw them away when you are finished using them as a cold pack. Supplies needed: A cold pack. A towel. This can be dry or damp, based on what you like. How to use cold therapy 1.Have your cold pack ready. 2.Place a towel between the cold pack and your skin. You may also wrap the cold pack in a towel. 3.Put the cold pack on the affected area. Keep it on for no more than 20 minutes at a time. 4.Check your skin after 5 minutes to make sure that there is no damage to the area. Check for: White spots on your skin. Your skin may look blotchy or mottled. Skin that looks blue or pale. Skin that feels waxy or hard. 5.Repeat these steps as many times each day as told by your doctor. Always use a towel to avoid direct contact with your skin. Contact a doctor if: You start to have white spots on your skin. This may give your skin a blotchy or mottled look. Your skin turns blue or pale. Your skin becomes waxy or hard. Your swelling gets worse. Summary Cold therapy, or cryotherapy, is used to treat an injury or other conditions. It includes using cold packs or ice packs to reduce pain and swelling. Cold therapy is not safe for people who are not able to say they are in pain. When using cold packs or ice packs, always place a towel between the cold source and your skin. Check your skin after 5 minutes of icing it. This is to make sure that there is no skin damage. Contact your doctor if you notice changes in your skin or your swelling gets worse. This information is not intended to replace advice given to you by your health care provider. Make sure you discuss any questions you have with your health care provider. Document Released: 11/13/2008 Document Revised: 02/24/2019 Document Reviewed: 02/24/2019 [employer] Patient Education 2020 Recombine. 02/02/2022 10:46:25 How to Use an Incentive Spirometer How To Use an Incentive Spirometer An incentive spirometer is a tool that measures how well you are filling your lungs with each breath. Learning to take long, deep breaths using this tool can help you keep your lungs clear and active. This may help to reverse or lessen your chance of developing breathing (pulmonary) problems, especially infection. You may be asked to use a spirometer: After a surgery. If you have a lung problem or a history of smoking. After a long period of time when you have been unable to move or be active. If the spirometer includes an indicator to show the highest number that you have reached, your health care provider or respiratory therapist will help you set a goal. Keep a list (log) of your progress as told by your health care provider. What are the risks? Breathing too quickly may cause dizziness or cause you to pass out. Take your time so you do not get dizzy or light-headed. If you are in pain, you may need to take pain medicine before doing incentive spirometry. It is harder to take a deep breath if you are having pain. How to use your incentive spirometer 1.Sit up on the edge of your bed or on a chair. 2.Hold the incentive spirometer so that it is in an upright position. 3.Before you use the spirometer, breathe out normally. 4.Place the mouthpiece in your mouth. Make sure your lips are closed tightly around it. 5.Breathe in slowly and as deeply as you can through your mouth, causing the piston or the ball to rise toward the top of the chamber. 6.Hold your breath for 3 5 seconds, or for as long as possible. If the spirometer includes a head athletic trainer/strength coach indicator, use this to guide you in breathing. Slow down your breathing if the indicator goes above the marked areas. 7.Remove the mouthpiece from your mouth and breathe out normally. The piston or ball will return tothe bottom of the chamber. 8.Rest for a few seconds, then repeat the steps 10 or more times. Take your time and take a few normal breaths between deep breaths so that you do not get dizzy or light-headed. Do this every 1 2 hours when you are awake. 9.If the spirometer includes a goal marker to show the highest number you have reached (best effort), use this as a goal to work toward during each repetition. 10.After each set of 10 deep breaths, cough a few times. This will help to make sure that your lungs are clear. If you have an incision on your chest or abdomen from surgery, place a pillow or a rolled-up towel firmly against the incision when you cough. This can help to reduce pain from coughing. General tips When you become able to get out of bed, walk around often and continue to cough to help clear your lungs. Keep using the incentive spirometer until your health care provider says it is okay to stop using it. If you have been in the hospital, you may be told to keep using the spirometer at home. Contact a health care provider if: You are having difficulty using the spirometer. You have trouble using the spirometer as often as instructed. Your pain medicine is not giving enough relief for you to use the spirometer as told. You have a fever. You develop shortness of breath. Get help right away if: You develop a cough with bloody mucus from the lungs (bloody sputum). You have fluid or blood coming from an incision site after you cough. Summary An incentive spirometer is a tool that can help you learn to take long, deep breaths to keep your lungs clear and active. You may be asked to use a spirometer after a surgery, if you have a lung problem or a history of smoking, or if you have been inactive for a long period of time. Use your incentive spirometer as instructed every 1 2 hours while you are awake. If you have an incision on your chest or abdomen, place a pillow or a rolled-up towel firmly against your incision when you cough. This will help to reduce pain. This information is not intended to replace advice given to you by your health care provider. Make sure you discuss any questions you have with your health care provider. Document Released: 10/08/2007 Document Revised: 06/20/2018 Document Reviewed: 04/10/2018 [employer] Patient Education 2020 Recombine. 02/02/2022 10:46:09 Deep Vein Thrombosis Deep Vein Thrombosis Deep vein thrombosis (DVT) is a condition in which a blood clot forms in a deep vein, such as a lower leg, thigh, or arm vein. A clot is blood that has thickened into a gel or solid. This condition is dangerous. It can lead to serious and even life-threatening complications if the clot travels to the lungs and causes a blockage (pulmonary embolism). It can also damage veins in the leg. This can result in leg pain, swelling, discoloration, and sores (post-thrombotic syndrome). What are the causes? This condition may be caused by: A slowdown of blood flow. Damage to a vein. A condition that causes blood to clot more easily, such as an inherited clotting disorder. What increases the risk? The following factors may make you more likely to develop this condition: Being overweight. Being older, especially over age 60. Sitting or lying down for more than four hours. Being in the hospital. Lack of physical activity (sedentary lifestyle). , being in childbirth, or having recently given . Taking medicines that contain estrogen, such as medicines to prevent . Smoking. A history of any of the following: ?Blood clots or a blood clotting disease. ?Peripheral vascular disease. ?Inflammatory bowel disease. ?Cancer. ?Heart disease. ?Genetic conditions that affect how your blood clots, such as Factor V Leiden mutation. ?Neurological diseases that affect your legs (leg paresis). ?A recent injury, such as a car accident. ?Major or lengthy surgery. ?A central line placed inside a large vein. What are the signs or symptoms? Symptoms of this condition include: Swelling, pain, or tenderness in an arm or leg. Warmth, redness, or discoloration in an arm or leg. If the clot is in your leg, symptoms may be more noticeable or worse when you stand or walk. Some people may not develop any symptoms. How is this diagnosed? This condition is diagnosed with: A medical history and physical exam. Tests, such as: ?Blood tests. These are done to check how well your blood clots. ?Ultrasound. This is done to check for clots. ?Venogram. For this test, contrast dye is injected into a vein and X-rays are taken to check for any clots. How is this treated? Treatment for this condition depends on: The cause of your DVT. Your risk for bleeding or developing more clots. Any other medical conditions that you have. Treatment may include: Taking a blood thinner (anticoagulant). This type of medicine prevents clots from forming. It may be taken by mouth, injected under the skin, or injected through an IV (catheter). Injecting clot-dissolving medicines into the affected vein (catheter-directed thrombolysis). Having surgery. Surgery may be done to: ?Remove the clot. ?Place a filter in a large vein to catch blood clots before they reach the lungs. Some treatments may be continued for up to six months. Follow these instructions at home: If you are taking blood thinners: Take the medicine exactly as told by your health care provider. Some blood thinners need to be taken at the same time every day. Do not skip a dose. Talk with your health care provider before you take any medicines that contain aspirin or NSAIDs. These medicines increase your risk for dangerous bleeding. Ask your health care provider about foods and drugs that could change the way the medicine works (may interact). Avoid those things if your health care provider tells you to do so. Blood thinners can cause easy bruising and may make it difficult to stop bleeding. Because of this: ?Be very careful when using knives, scissors, or other sharp objects. ?Use an electric razor instead of a blade. ?Avoid activities that could cause injury or bruising, and follow instructions about how to preventfalls. Wear a medical alert bracelet or carry a card that lists what medicines you take. General instructions Take ccbv-ott-zxypoyo and prescription medicines only as told by your health care provider. Return to your normal activities as told by your health care provider. Ask your health care provider what activities are safe for you. Wear compression stockings if recommended by your health care provider. Keep all follow-up visits as told by your health care provider. This is important. How is this prevented? To lower your risk of developing this condition again: For 30 or more minutes every day, do an activity that: ?Involves moving your arms and legs. ?Increases your heart rate. When traveling for longer than four hours: ?Exercise your arms and legs every hour. ?Drink plenty of water. ?Avoid drinking alcohol. Avoid sitting or lying for a long time without moving your legs. If you have surgery or you are hospitalized, ask about ways to prevent blood clots. These may include taking frequent walks or using anticoagulants. Stay at a healthy weight. If you are a woman who is older than age 35, avoid unnecessary use of medicines that contain estrogen, such as some control pills. Do not use any products that contain nicotine or tobacco, such as cigarettes and e-cigarettes. Thisis especially important if you take estrogen medicines. If you need help quitting, ask your health care provider. Contact a health care provider if: You miss a dose of your blood thinner. Your menstrual period is heavier than usual. You have unusual bruising. Get help right away if: You have: ?New or increased pain, swelling, or redness in an arm or leg. ?Numbness or tingling in an arm or leg. ?Shortness of breath. ?Chest pain. ?A rapid or irregular heartbeat. ?A severe headache or confusion. ?A cut that will not stop bleeding. There is blood in your vomit, stool, or urine. You have a serious fall or accident, or you hit your head. You feel light-headed or dizzy. You cough up blood. These symptoms may represent a serious problem that is an emergency. Do not wait to see if the symptoms will go away. Get medical help right away. Call your local emergency services (911 in the [place] Do not drive yourself to the hospital. Summary Deep vein thrombosis (DVT) is a condition in which a blood clot forms in a deep vein, such as a lower leg, thigh, or arm vein. Symptoms can include swelling, warmth, pain, and redness in your leg or arm. This condition may be treated with a blood thinner (anticoagulant medicine), medicine that is injected to dissolve blood clots,compression stockings, or surgery. If you are prescribed blood thinners, take them exactly as told. This information is not intended to replace advice given to you by your health care provider. Make sure you discuss any questions you have with your health care provider. Document Released: 05/28/2006 Document Revised: 05/10/2018 Document Reviewed: 10/26/2017 [employer] Patient Education 2020 Recombine. 02/02/2022 10:46:04 General Anesthesia, Adult, Care After General Anesthesia, Adult, Care After This sheet gives you information about how to care for yourself after your procedure. Your health care provider may also give you more specific instructions. If you have problems or questions, contact your health care provider. What can I expect after the procedure? After the procedure, the following side effects are common: Pain or discomfort at the IV site. Nausea. Vomiting. Sore throat. Trouble concentrating. Feeling cold or chills. Weak or tired. Sleepiness and fatigue. Soreness and body aches. These side effects can affect parts of the body that were not involved in surgery. Follow these instructions at home: For at least 24 hours after the procedure: Have a responsible adult stay with you. It is important to have someone help care for you until youare awake and alert. Rest as needed. Do not: ?Participate in activities in which you could fall or become injured. ?Drive. ?Use heavy machinery. ?Drink alcohol. ?Take sleeping pills or medicines that cause drowsiness. ?Make important decisions or sign legal documents. ?Take care of children on your own. Eating and drinking Follow any instructions from your health care provider about eating or drinking restrictions. When you feel hungry, start by eating small amounts of foods that are soft and easy to digest (bland), such as toast. Gradually return to your regular diet. Drink enough fluid to keep your urine pale yellow. If you vomit, rehydrate by drinking water, juice, or clear broth. General instructions If you have sleep apnea, surgery and certain medicines can increase your risk for breathing problems. Follow instructions from your health care provider about wearing your sleep device: ?Anytime you are sleeping, including during daytime naps. ?While taking prescription pain medicines, sleeping medicines, or medicines that make you drowsy. Return to your normal activities as told by your health care provider. Ask your health care provider what activities are safe for you. Take hbti-aui-voasrfg and prescription medicines only as told by your health care provider. If you smoke, do not smoke without supervision. Keep all follow-up visits as told by your health care provider. This is important. Contact a health care provider if: You have nausea or vomiting that does not get better with medicine. You cannot eat or drink without vomiting. You have pain that does not get better with medicine. You are unable to pass urine. You develop a skin rash. You have a fever. You have redness around your IV site that gets worse. Get help right away if: You have difficulty breathing. You have chest pain. You have blood in your urine or stool, or you vomit blood. Summary After the procedure, it is common to have a sore throat or nausea. It is also common to feel tired. Have a responsible adult stay with you for the first 24 hours after general anesthesia. It is important to have someone help care for you until you are awake and alert. When you feel hungry, start by eating small amounts of foods that are soft and easy to digest (bland), such as toast. Gradually return to your regular diet. Drink enough fluid to keep your urine pale yellow. Return to your normal activities as told by your health care provider. Ask your health care provider what activities are safe for you. This information is not intended to replace advice given to you by your health care provider. Make sure you discuss any questions you have with your health care provider. Document Released: 09/03/2001 Document Revised: 05/31/2018 Document Reviewed: 01/11/2018 [employer] Patient Education 2020 Recombine. 02/02/2022 10:45:56 How to Use Cold Therapy, Fehb-wd-Wrfa How to Use Cold Therapy Cold therapy, or cryotherapy, is a treatment that uses cold temperatures to treat an injury or medical condition. It includes using cold packs or ice packs to reduce pain and swelling. Only use cold therapy if your doctor says it is okay. What are the risks? Generally, cold therapy is a safe treatment. However, it is not safe for: People who are not able to say they are in pain. These include small children and people who have memory problems. People who have certain conditions, such as: ?A problem in the vessels that slows blood flow to the fingers and toes (Raynaud's syndrome). ?Feeling very cold easily (cold hypersensitivity). ?Lack of feeling in the area being iced. Cold therapy may not be safe for people who have other conditions. Do not use it without talking toyour doctor if you have: A heart condition. High blood pressure. Open or healing wounds. An infection. Pain and swelling in your joints (rheumatoid arthritis). Poor blood flow in the body. Diabetes. Certain skin conditions. How can I make a cold pack? When using a cold pack at home to reduce pain and swelling, you can use: A silica gel cold pack that has been left in the freezer. You can buy this online or in stores. A sealable plastic bag that has been filled with crushed ice. A washcloth or paper towels soaked in cold (or ice) water. A plastic bag of frozen vegetables. Throw them away when you are finished using them as a cold pack. Supplies needed: A cold pack. A towel. This can be dry or damp, based on what you like. How to use cold therapy 1.Have your cold pack ready. 2.Place a towel between the cold pack and your skin. You may also wrap the cold pack in a towel. 3.Put the cold pack on the affected area. Keep it on for no more than 20 minutes at a time. 4.Check your skin after 5 minutes to make sure that there is no damage to the area. Check for: White spots on your skin. Your skin may look blotchy or mottled. Skin that looks blue or pale. Skin that feels waxy or hard. 5.Repeat these steps as many times each day as told by your doctor. Always use a towel to avoid direct contact with your skin. Contact a doctor if: You start to have white spots on your skin. This may give your skin a blotchy or mottled look. Your skin turns blue or pale. Your skin becomes waxy or hard. Your swelling gets worse. Summary Cold therapy, or cryotherapy, is used to treat an injury or other conditions. It includes using cold packs or ice packs to reduce pain and swelling. Cold therapy is not safe for people who are not able to say they are in pain. When using cold packs or ice packs, always place a towel between the cold source and your skin. Check your skin after 5 minutes of icing it. This is to make sure that there is no skin damage. Contact your doctor if you notice changes in your skin or your swelling gets worse. This information is not intended to replace advice given to you by your health care provider. Make sure you discuss any questions you have with your health care provider. Document Released: 11/13/2008 Document Revised: 02/24/2019 Document Reviewed: 02/24/2019 [employer] Patient Education 2020 Recombine. Follow Up Care 01/17/2022 11:29:54 With:CHRISTIAN HECTOR MD, Surgery Address: [address] [place] [address] [phone] When: Unknown Comments:CALL DR HECTOR'S OFFICE SOON FOR A 2 WEEK FOLLOW UP APPOINTMENT. CALL DR HECTOR WITH ANY QUESTIONS. GO TO THE EMERGENCY ROOM WITH ANY URGENT CONCERNS. [facility] 08-25-2022 Summary of episode note Discharge Instructions Thank you for allowing [facility] to assist you with your healthcare needs. The following is importantdischarge information regarding your hospital visit. Your Care Team AUSTIN FINLEY DO DR. 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 What to do next Follow Up Appointments Follow Up with CHRISTIAN HECTOR MD, Surgery When Why: CALL DR HECTOR'S OFFICE SOON FOR A 2 WEEK FOLLOW UP APPOINTMENT. CALL DR HECTOR WITH ANY QUESTIONS. GO TO THE EMERGENCY ROOM WITH ANY URGENT CONCERNS. Where: [address] [place] [phone] The Following Activity and Diet Have Been Ordered for You Discharge Activity - Ordered -- Sexual [place] Restricted No bending, twisting, crawling or squatt, No shower or tub bath for 2 days; no driving for 5 days, no lifting >15 lbs, 02/02/22 10:16:00 EDT Discharge Diet - Ordered -- Follow the post-operative/post-procedure diet instructions provided by your physician's office.,02/02/22 10:16:00 EDT The Following Equipment Has Been Ordered for You Discharge Home Equipment Discharge Wound Care - Ordered -- Dressing Type: Dry sterile drsg, Remove dressing in two (2) days. Leave steristrips on until they fall off, 02/02/22 10:16:00 EDT Someone Will Contact You Regarding These Home Health Referrals No home referrals have been ordered for you. No one will call you. Allergies allopurinol (Swelling of oral cavity structure) Medications Please ask your primary doctor or pharmacist before taking any other medication not listed, including over the counter drugs, herbal medications, vitamins and or supplements as they may interact withyour home medications. What How Much When Why Instructions Last Dose New acetaminophen-hydrocodone (Donnellson 325- 5 mg oral tablet) 1 tab(s) by mouth Every 4 hours as needed for Pain, scale 1-6 Acute post-operative pain Duration: 5 Days Printed Prescription Unchanged betamethasone topical (betamethasone valerate 0.1% topical cream) 1 application Topical Two (2) times a day Unchanged celecoxib (celecoxib 200 mg oral capsule) 1 cap by mouth Once a day as needed for Joint pain Do not take concurrently with indomethacin. Unchanged colchicine (colchicine 0.6 mg oral tablet) 1 tab(s) by mouth Once a day Gout, unspecified Unchanged indomethacin (indomethacin 75 mg oral capsule, extended release) 1 cap by mouth Two (2) times a day as needed for Gout attack Do not take concurrently with Celebrex. Unchanged loratadine-pseudoephedrine (Loratadine-D 24 Hour oral tablet, extended release) 1 tab(s) by mouth Once a day Unchanged multivitamin (Multivitamin) 1 tab(s) by mouth Every day Unchanged predniSONE (predniSONE 10 mg oral tablet) See instructions Take 6 tabs daily x3 days, then 5 tablets daily x3 days, then 4 tabs daily x3 days, then 3 tabs daily x3 days, then 2 tabs daily x3 days, then 1 tab daily x3 days; take with food Unchanged sildenafil (sildenafil 20 mg oral tablet) 1-5 tabs by mouth Every day as needed for Erectile dysfunction ED (erectile dysfunction) Please take this list to your next doctor s visit. Bring all medications you take, including over the counter medications, herbals and other supplements with you to your doctor s visit. Patients and families are reminded to discard old lists and to update any records with all medication providers or retail pharmacies. Medication Leaflets psyllium (NOAH ee um) Hydrocil, Konsyl, Laxmar, Metamucil, Natural Fiber Therapy, Reguloid What is the most important information I should know about psyllium? Follow all directions on your medicine label and package. Tell each of your healthcare providers about all your medical conditions, allergies, and all medicines you use. What is psyllium? Psyllium is a bulk-forming fiber laxative that is used to treat occasional constipation or bowel irregularity. Psyllium may also help lower cholesterol when used together with a diet low in cholesterol and saturated fat. Psyllium may also be used for purposes not listed in this medication guide. What should I discuss with my healthcare provider before taking psyllium? You should not take psyllium if you have ever had an allergic reaction to it. Ask a doctor or pharmacist if this medicine is safe to use if you have ever had: stomach pain, nausea, or vomiting; trouble swallowing; or a sudden change in bowel habits lasting longer than 2 weeks. This medicine may contain sugar, sodium, or phenylalanine. Check the medication label if you have diabetes, high blood pressure, phenylketonuria (PKU), or if you are on a low-salt diet. Ask a doctor before using this medicine if you are or . Your dose needs may be different during or while you are nursing. Do not give psyllium to a child younger than 6 years old without medical advice. How should I take psyllium? Use exactly as directed on the label, or as prescribed by your doctor. Laxatives may be habit-forming if they are used too often or for too long. Psyllium can swell in your throat and cause choking if you don't take it with enough liquid. Drink plenty of fluids each day to help improve bowel regularity. Take psyllium with a full glass (at least 8 ounces) of water or other liquid. Swallow psyllium capsules one at a time. Psyllium powder must be mixed with liquid before you take it. Do not swallow the dry powder. Mix with at least 8 ounces of liquid such as water or fruit juice. Stir and drink this mixture right away.Add a little more water to the glass, swirl gently and drink right away. Psyllium usually produces a bowel movement within 12 to 72 hours. Do not take psyllium for longer than 7 days in a row without a doctor's advice. Using a laxative too often or for too long may cause severe medical problems with your intestines. Call your doctor if your symptoms do not improve, or if they get worse. Psyllium may be only part of a complete program of treatment that also includes diet, exercise, andweight control. Follow your doctor's instructions very closely. Store at room temperature away from moisture and heat. Keep the container tightly closed when not in use. What happens if I miss a dose? Since psyllium is used when needed, you may not be on a dosing schedule. Skip any missed dose if it's almost time for your next dose. Do not use two doses at one time. What happens if I overdose? Seek emergency medical attention or call the Poison Help line at . What should I avoid while taking psyllium? Avoid breathing in the dust from psyllium powder when mixing. Inhaling psyllium dust may cause an allergic reaction. If you take psyllium as part of a cholesterol-lowering treatment plan, avoid eating foods high in fat or cholesterol or your overall treatment will not be as effective. What are the possible side effects of psyllium? Get emergency medical help if you have signs of an allergic reaction: hives; difficult breathing; swelling of your face, lips, tongue, or throat. Stop using psyllium and call your doctor at once if you have: constipation that lasts longer than 7 days; rectal bleeding; or severe stomach pain. Common side effects may include: bloating; or minor change in your bowel habits. This is not a complete list of side effects and others may occur. Call your doctor for medical advice about side effects. You may report side effects to FDA at 0-342-XSL-7848. What other drugs will affect psyllium? Psyllium can make it harder for your body to absorb other medicines you take by mouth, possibly making them less effective. If you take any oral medicines, take them 2 hours before or 2 hours after you take psyllium. Other drugs may affect psyllium, including prescription and lequ-pzr-ctkfrxp medicines, vitamins, and herbal products. Tell your doctor about all your current medicines and any medicine you start or stop using. Where can I get more information? Your pharmacist can provide more information about psyllium. Remember, keep this and all other medicines out of the reach of children, never share your medicines with others, and use this medication only for the indication prescribed. Every effort has been made to ensure that the information provided by [employer]. ('[employer]') is accurate, up-to-date, and complete, but no guarantee is made to that effect. Drug information contained herein may be time sensitive. [employer] information has been compiled for use by healthcare practitioners and consumers in the [place] and therefore [employer] does not warrant that uses outside of the [place] are appropriate, unless specifically indicated otherwise. [employer] drug information does not endorse drugs, diagnose patients or recommend therapy. [employer] drug information isan informational resource designed to assist licensed healthcare practitioners in caring for their p atients and/or to serve consumers viewing this service as a supplement to, and not a substitute for, the expertise, skill, knowledge and judgment of healthcare practitioners. The absence of a warningfor a given drug or drug combination in no way should be construed to indicate that the drug or drug combination is safe, effective or appropriate for any given patient. [employer] does not assume any responsibility for any aspect of healthcare administered with the aid of information [employer] provides. The information contained herein is not intended to cover all possible uses, directions, precautions, warnings, drug interactions, allergic reactions, or adverse effects. If you have questions about the drugs you are taking, check with your doctor, nurse or pharmacist. Copyright 0146-5877 [employer]. Version: 9.01. Revision Date: 06/13/2019. acetaminophen and hydrocodone (a SEET a MIN oh fen and sree droe KOE done) Hycet, Lorcet, Donnellson, Verdrocet, Vicodin, Xodol, Zamicet What is the most important information I should know about acetaminophen and hydrocodone? MISUSE OF OPIOID MEDICINE CAN CAUSE ADDICTION, OVERDOSE, OR . Keep the medication in a place where others cannot get to it. Taking opioid medicine during may cause life-threatening withdrawal symptoms in the . Fatal side effects can occur if you use opioid medicine with alcohol, or with other drugs that cause drowsiness or slow your breathing. Stop taking this medicine and call your doctor right away if you have skin redness or a rash that spreads and causes blistering and peeling. What is acetaminophen and hydrocodone? Acetaminophen and hydrocodone is a combination medicine used to relieve moderate to severe pain. Acetaminophen and hydrocodone contains an opioid medicine, and may be habit-forming. Acetaminophen and hydrocodone may also be used for purposes not listed in this medication guide. What should I discuss with my healthcare provider before taking acetaminophen and hydrocodone? You should not use this medicine if you are allergic to acetaminophen or hydrocodone, or if you have: severe asthma or breathing problems; or a blockage in your stomach or intestines. Tell your doctor if you have ever had: breathing problems, sleep apnea (breathing stops during sleep); liver disease; a drug or alcohol addiction; kidney disease; a head injury or seizures; urination problems; or problems with your thyroid, pancreas, or gallbladder. If you use opioid medicine while you are , your baby could become dependent on the drug. This can cause life-threatening withdrawal symptoms in the baby after it is born. Babies born dependent on opioids may need medical treatment for several weeks. Ask a doctor before using opioid medicine if you are . Tell your doctor if you notice severe drowsiness or slow breathing in the nursing baby. How should I take acetaminophen and hydrocodone? Follow all directions on your prescription label. Never take this medicine in larger amounts, or for longer than prescribed. An overdose can damage your liver or cause . Tell your doctor if you feel an increased urge to use more of this medicine. Never share this medicine with another person, especially someone with a history of drug abuse or addiction. MISUSE CAN CAUSE ADDICTION, OVERDOSE, OR . Keep the medicine in a place where others cannot get to it. Selling or giving away this medicine is against the law. Measure liquid medicine carefully. Use the dosing syringe provided, or use a medicine dose-measuring device (not a kitchen spoon). If you need surgery or medical tests, tell the doctor ahead of time that you are using this medicine. You should not stop using this medicine suddenly. Follow your doctor's instructions about tapering your dose. Store at room temperature away from moisture and heat. Keep track of your medicine. You should be aware if anyone is using it improperly or without a prescription. Do not keep leftover opioid medication. Just one dose can cause in someone using this medicine accidentally or improperly. Ask your pharmacist where to locate a drug take-back disposal program.If there is no take-back program, flush the unused medicine down the toilet. What happens if I miss a dose? Since this medicine is used for pain, you are not likely to miss a dose. Skip any missed dose if itis almost time for your next dose. Do not use two doses at one time. What happens if I overdose? Seek emergency medical attention or call the Poison Help line at . An overdose of this medicine can be fatal, especially in a child or other person using the medicine without a prescription. Overdose symptoms may include nausea, vomiting, sweating, severe drowsiness, pinpoint pupils, slow breathing, or no breathing. Your doctor may recommend you get naloxone (a medicine to reverse an opioid overdose) and keep it with you at all times. A person caring for you can give the naloxone if you stop breathing or don't wake up. Your caregiver must still get emergency medical help and may need to perform CPR (cardiopulmonary resuscitation) on you while waiting for help to arrive. Anyone can buy naloxone from a pharmacy or local health department. Make sure any person caring foryou knows where you keep naloxone and how to use it. What should I avoid while taking acetaminophen and hydrocodone? Avoid driving or operating machinery until you know how this medicine will affect you. Dizziness ordrowsiness can cause falls, accidents, or severe injuries. Do not drink alcohol. Dangerous side effects or could occur. Ask a doctor or pharmacist before using any other medicine that may contain acetaminophen (sometimes abbreviated as APAP). Taking certain medications together can lead to a fatal overdose. What are the possible side effects of acetaminophen and hydrocodone? Get emergency medical help if you have signs of an allergic reaction: hives; difficulty breathing; swelling of your face, lips, tongue, or throat. Opioid medicine can slow or stop your breathing, and may occur. A person caring for you should give naloxone and/or seek emergency medical attention if you have slow breathing with long pauses,blue colored lips, or if you are hard to wake up. In rare cases, acetaminophen may cause a severe skin reaction that can be fatal. This could occur even if you have taken acetaminophen in the past and had no reaction. Stop taking this medicine and call your doctor right away if you have skin redness or a rash that spreads and causes blistering andpeeling. Call your doctor at once if you have: noisy breathing, sighing, shallow breathing, breathing that stops; a light-headed feeling, like you might pass out; liver problems--nausea, upper stomach pain, tiredness, loss of appetite, dark urine, talib-colored stools, jaundice (yellowing of the skin or eyes); low cortisol levels-- nausea, vomiting, loss of appetite, dizziness, worsening tiredness or weakness; o high levels of serotonin in the body--agitation, hallucinations, fever, sweating, shivering, fast heart rate, muscle stiffness, twitching, loss of coordination, nausea, vomiting, diarrhea. Serious breathing problems may be more likely in older adults and in those who are debilitated or have wasting syndrome or chronic breathing disorders. Common side effects include: dizziness, drowsiness, feeling tired; nausea, vomiting, stomach pain; constipation; or headache. This is not a complete list of side effects and others may occur. Call your doctor for medical advice about side effects. You may report side effects to FDA at 6-149-KMR-3371. What other drugs will affect acetaminophen and hydrocodone? You may have breathing problems or withdrawal symptoms if you start or stop taking certain other medicines. Tell your doctor if you also use an antibiotic, antifungal medication, heart or blood pressure medication, seizure medication, or medicine to treat HIV or hepatitis C. Opioid medication can interact with many other drugs and cause dangerous side effects or . Be sure your doctor knows if you also use: cold or allergy medicines, bronchodilator asthma/COPD medication, or a diuretic ('water pill'); medicines for motion sickness, irritable bowel syndrome, or overactive bladder; other opioids--opioid pain medicine or prescription cough medicine; a sedative like Valium--diazepam, alprazolam, lorazepam, Xanax, Klonopin, Versed, and others; drugs that make you sleepy or slow your breathing--a sleeping pill, muscle relaxer, medicine to treat mood disorders or mental illness; drugs that affect serotonin levels in your body--a stimulant, or medicine for depression, Parkinson's disease, migraine headaches, serious infections, or nausea and vomiting. This list is not complete. Other drugs may affect acetaminophen and hydrocodone, including prescription and whpn-vmm-[id number] medicines, vitamins, and herbal products. Not all possible interactions are listed here. Where can I get more information? Your doctor or pharmacist can provide more information about acetaminophen and hydrocodone. Remember, keep this and all other medicines out of the reach of children, never share your medicines with others, and use this medication only for the indication prescribed. Every effort has been made to ensure that the information provided by [employer]') is accurate, up-to-date, and complete, but no guarantee is made to that effect. Drug information contained herein may be time sensitive. [employer] information has been compiled for use by healthcare practitioners and consumers in the [place] and therefore [employer] does not warrant that uses outside of the [place] are appropriate, unless specifically indicated otherwise. [employer] drug information does not endorse drugs, diagnose patients or recommend therapy. [employer] drug information isan informational resource designed to assist licensed healthcare practitioners in caring for their p atients and/or to serve consumers viewing this service as a supplement to, and not a substitute for, the expertise, skill, knowledge and judgment of healthcare practitioners. The absence of a warningfor a given drug or drug combination in no way should be construed to indicate that the drug or drug combination is safe, effective or appropriate for any given patient. [facility] does not assume any responsibility for any aspect of healthcare administered with the aid of information [facility] provides. The information contained herein is not intended to cover all possible uses, directions, precautions, warnings, drug interactions, allergic reactions, or adverse effects. If you have questions about the drugs you are taking, check with your doctor, nurse or pharmacist. Copyright 0394-2457 [facility] [employer]. Version: 16.03. Revision Date: 07/13/2020. Education Materials Hand Washing Germs such as bacteria, viruses, and parasites are found everywhere. They can be in the air and water. They can also be on surfaces like food, door handles, and your skin. Every day, your hands touchgerms. Many of these germs can make you and your family sick. Washing your hands is one of the bestways to lower your risk of getting and sharing germs. When should I wash my hands? You should wash your hands whenever you think they are dirty. You should also wash your hands: Before: ? Visiting a baby or anyone with a weakened disease-fighting system (immunesystem). ? Putting in and taking out contact lenses. After: ? Using the bathroom or helping someone else use the bathroom. ? Working or playing outside. ? Touching or taking out the garbage. ? Touching anything dirty around your home. ? Sneezing, coughing, or blowing your nose. ? Using a phone, including your mobile phone. ? Touching an animal, animal food, animal poop, or its toys or leash. ? Touching money. ? Using household manager data warehouse or poisonous chemicals. ? Handling dirty clothes, bedding, or rags. ? Using public transportation. ? Going shopping, especially if you use a shopping cart or basket. ? Shaking hands. ? Handling livestock, such as cows or sheep. Before and after: ? Preparing food. ? Eating. ? Visiting or taking care of someone who is sick. This includes touching used tissues, toys, and clothes. ? Changing a bandage (dressing). ? Taking care of an injury or wound. ? Giving or taking medicine. ? Preparing a bottle for a baby. ? Feeding a baby or young child. ? Changing a diaper. What is the right way to wash my hands? 1. Wet your hands with clean, running water. Turn off the water or move your hands out of the running water. 2. Apply liquid soap or bar soap to your hands. 3. Rub your hands together quickly to create lather. 4. Keep rubbing your hands together for at least 20 seconds. Thoroughly scrub all parts of your hands.This includes scrubbing under your fingernails and between your fingers. 5. Rinse your hands with clean, running water. Do this until all the soap is gone. 6. Dry your hands using an air dryer or a clean paper or cloth towel, or let your hands air-dry. Do not use your clothing or a dirty towel to dry your hands. If you are in a public restroom, use your towel: To turn off the water faucet. To open the bathroom door. How can I clean my hands if I do not have soap and water? If soap and clean water are not available, use a hand-washing wipe, spray, or gel (hand portrait photographer).Use one that contains at least 60% alcohol. If you are handling food, gels are not recommended as areplacement for hand washing with soap and water. To use these products, follow the directions on the product, and: Apply enough product to cover your hands. Make sure you wipe, rub, or spray the product so that it reaches every part of your hands and wrists. Include the backs of your hands, between your fingers, and under your fingernails. Rub the product onto your hands until it dries. Summary Every day, your hands touch germs. Many of these germs can make you and your family sick. Washing your hands is one of the best ways to lower your risk of getting and sharing germs. If soap and clean water are not available, use a hand-washing wipe, spray, or gel. This information is not intended to replace advice given to you by your health care provider. Make sure you discuss any questions you have with your health care provider. Document Released: 05/10/2009 Document Revised: 03/06/2018 Document Reviewed: 03/06/2018 [employer] Patient Education 2020 [employer] How to Use Compression Stockings Compression stockings are elastic socks that squeeze the legs. They help increase blood flow (circulation) to the legs, decrease swelling in the legs, and reduce the chance of developing blood clots in the lower legs. Compression stockings are often used by people who: Are recovering from surgery. Have poor circulation in their legs. Tend to get blood clots in their legs. Have bulging (varicose) veins. Sit or stay in bed for long periods of time. Follow instructions from your health care provider about how and when to wear your compression stockings. How to wear compression stockings Before you put on your compression stockings: Make sure that they are the correct size and degree of compression. If you do not know your size orrequired grade of compression, ask your health care provider and follow the porcelain slusher's instructions that come with the stockings. Make sure that they are clean, dry, and in good condition. Check them for rips and tears. Do not put them on if they are ripped or torn. Put your stockings on first thing in the morning, before you get out of bed. Keep them on for as long as your health care provider advises. When you are wearing your stockings: Keep them as smooth as possible. Do not allow them to bunch up. It is especially important to prevent the stockings from bunching up around your toes or behind your knees. Do not roll the stockings downward and leave them rolled down. This can decrease blood flow to yourleg. Change them right away if they become wet or dirty. When you take off your stockings, inspect your legs and feet. Check for: Open sores. Red spots. Swelling. General tips Do not stop wearing compression stockings without talking to your health care provider first. Wash your stockings every day with mild detergent in cold or warm water. Do not use bleach. Air-dryyour stockings or dry them in a clothes dryer on low heat. It may be helpful to have two pairs so that you have a pair to wear while the other is being washed. Replace your stockings every 3 6 months. If skin moisturizing is part of your treatment plan, apply lotion or cream at night so that your skin will be dry when you put on the stockings in the morning. It is harder to put the stockings on when you have lotion on your legs or feet. Wear nonskid shoes or slip-resistant socks when walking while wearing compression stockings. Contact a health care provider and remove your stockings if you have: A feeling of pins and needles in your feet or legs. Open sores, red spots, or other skin changes on your feet or legs. Swelling or pain that gets worse. Get help right away if you have: Numbness or tingling in your lower legs that does not get better right after you take the stockingsoff. Toes or feet that are unusually cold or turn a bluish color. A warm or red area on your leg. New swelling or soreness in your leg. Shortness of breath. Chest pain. A fast or irregular heartbeat. Light-headedness. Dizziness. Summary Compression stockings are elastic socks that squeeze the legs. They help increase blood flow (circulation) to the legs, decrease swelling in the legs, and reduce the chance of developing blood clots in the lower legs. Follow instructions from your health care provider about how and when to wear your compression stockings. Do not stop wearing your compression stockings without talking to your health care provider first. This information is not intended to replace advice given to you by your health care provider. Make sure you discuss any questions you have with your health care provider. Document Released: 03/25/2010 Document Revised: 05/30/2018 Document Reviewed: 05/30/2018 [employer] Patient Education 2020 [employer] How to Use Cold Therapy Cold therapy, or cryotherapy, is a treatment that uses cold temperatures to treat an injury or medical condition. It includes using cold packs or ice packs to reduce pain and swelling. Only use cold therapy if your doctor says it is okay. What are the risks? Generally, cold therapy is a safe treatment. However, it is not safe for: People who are not able to say they are in pain. These include small children and people who have memory problems. People who have certain conditions, such as: ? A problem in the vessels that slows blood flow to the fingers and toes (Raynaud's syndrome). ? Feeling very cold easily (cold hypersensitivity). ? Lack of feeling in the area being iced. Cold therapy may not be safe for people who have other conditions. Do not use it without talking toyour doctor if you have: A heart condition. High blood pressure. Open or healing wounds. An infection. Pain and swelling in your joints (rheumatoid arthritis). Poor blood flow in the body. Diabetes. Certain skin conditions. How can I make a cold pack? When using a cold pack at home to reduce pain and swelling, you can use: A silica gel cold pack that has been left in the freezer. You can buy this online or in stores. A sealable plastic bag that has been filled with crushed ice. A washcloth or paper towels soaked in cold (or ice) water. A plastic bag of frozen vegetables. Throw them away when you are finished using them as a cold pack. Supplies needed: A cold pack. A towel. This can be dry or damp, based on what you like. How to use cold therapy 1. Have your cold pack ready. 2. Place a towel between the cold pack and your skin. You may also wrap the cold pack in a towel. 3. Put the cold pack on the affected area. Keep it on for no more than 20 minutes at a time. 4. Check your skin after 5 minutes to make sure that there is no damage to the area. Check for: White spots on your skin. Your skin may look blotchy or mottled. Skin that looks blue or pale. Skin that feels waxy or hard. 5. Repeat these steps as many times each day as told by your doctor. Always use a towel to avoid direct contact with your skin. Contact a doctor if: You start to have white spots on your skin. This may give your skin a blotchy or mottled look. Your skin turns blue or pale. Your skin becomes waxy or hard. Your swelling gets worse. Summary Cold therapy, or cryotherapy, is used to treat an injury or other conditions. It includes using cold packs or ice packs to reduce pain and swelling. Cold therapy is not safe for people who are not able to say they are in pain. When using cold packs or ice packs, always place a towel between the cold source and your skin. Check your skin after 5 minutes of icing it. This is to make sure that there is no skin damage. Contact your doctor if you notice changes in your skin or your swelling gets worse. This information is not intended to replace advice given to you by your health care provider. Make sure you discuss any questions you have with your health care provider. Document Released: 11/13/2008 Document Revised: 02/24/2019 Document Reviewed: 02/24/2019 [employer] Patient Education 2020 [employer] How To Use an Incentive Spirometer An incentive spirometer is a tool that measures how well you are filling your lungs with each breath. Learning to take long, deep breaths using this tool can help you keep your lungs clear and active. This may help to reverse or lessen your chance of developing breathing (pulmonary) problems, especially infection. You may be asked to use a spirometer: After a surgery. If you have a lung problem or a history of smoking. After a long period of time when you have been unable to move or be active. If the spirometer includes an indicator to show the highest number that you have reached, your health care provider or respiratory therapist will help you set a goal. Keep a list (log) of your progress as told by your health care provider. What are the risks? Breathing too quickly may cause dizziness or cause you to pass out. Take your time so you do not get dizzy or light-headed. If you are in pain, you may need to take pain medicine before doing incentive spirometry. It is harder to take a deep breath if you are having pain. How to use your incentive spirometer 1. Sit up on the edge of your bed or on a chair. 2. Hold the incentive spirometer so that it is in an upright position. 3. Before you use the spirometer, breathe out normally. 4. Place the mouthpiece in your mouth. Make sure your lips are closed tightly around it. 5. Breathe in slowly and as deeply as you can through your mouth, causing the piston or the ball to rise toward the top of the chamber. 6. Hold your breath for 3 5 seconds, or for as long as possible. If the spirometer includes a head athletic trainer/strength coach indicator, use this to guide you in breathing. Slow down your breathing if the indicator goes above the marked areas. 7. Remove the mouthpiece from your mouth and breathe out normally. The piston or ball will return to the bottom of the chamber. 8. Rest for a few seconds, then repeat the steps 10 or more times. Take your time and take a few normal breaths between deep breaths so that you do not get dizzy or light-headed. Do this every 1 2 hours when you are awake. 9. If the spirometer includes a goal marker to show the highest number you have reached (best effort),use this as a goal to work toward during each repetition. 10. After each set of 10 deep breaths, cough a few times. This will help to make sure that your lungs are clear. If you have an incision on your chest or abdomen from surgery, place a pillow or a rolled-up towel firmly against the incision when you cough. This can help to reduce pain from coughing. General tips When you become able to get out of bed, walk around often and continue to cough to help clear your lungs. Keep using the incentive spirometer until your health care provider says it is okay to stop using it. If you have been in the hospital, you may be told to keep using the spirometer at home. Contact a health care provider if: You are having difficulty using the spirometer. You have trouble using the spirometer as often as instructed. Your pain medicine is not giving enough relief for you to use the spirometer as told. You have a fever. You develop shortness of breath. Get help right away if: You develop a cough with bloody mucus from the lungs (bloody sputum). You have fluid or blood coming from an incision site after you cough. Summary An incentive spirometer is a tool that can help you learn to take long, deep breaths to keep your lungs clear and active. You may be asked to use a spirometer after a surgery, if you have a lung problem or a history of smoking, or if you have been inactive for a long period of time. Use your incentive spirometer as instructed every 1 2 hours while you are awake. If you have an incision on your chest or abdomen, place a pillow or a rolled-up towel firmly against your incision when you cough. This will help to reduce pain. This information is not intended to replace advice given to you by your health care provider. Make sure you discuss any questions you have with your health care provider. Document Released: 10/08/2007 Document Revised: 06/20/2018 Document Reviewed: 04/10/2018 [email or web address] Patient Education 2020 [employer] Deep Vein Thrombosis Deep vein thrombosis (DVT) is a condition in which a blood clot forms in a deep vein, such as a lower leg, thigh, or arm vein. A clot is blood that has thickened into a gel or solid. This condition is dangerous. It can lead to serious and even life-threatening complications if the clot travels to the lungs and causes a blockage (pulmonary embolism). It can also damage veins in the leg. This can result in leg pain, swelling, discoloration, and sores (post-thrombotic syndrome). What are the causes? This condition may be caused by: A slowdown of blood flow. Damage to a vein. A condition that causes blood to clot more easily, such as an inherited clotting disorder. What increases the risk? The following factors may make you more likely to develop this condition: Being overweight. Being older, especially over age 60. Sitting or lying down for more than four hours. Being in the hospital. Lack of physical activity (sedentary lifestyle). , being in childbirth, or having recently given . Taking medicines that contain estrogen, such as medicines to prevent . Smoking. A history of any of the following: ? Blood clots or a blood clotting disease. ? Peripheral vascular disease. ? Inflammatory bowel disease. ? Cancer. ? Heart disease. ? Genetic conditions that affect how your blood clots, such as Factor V Leiden mutation. ? Neurological diseases that affect your legs (leg paresis). ? A recent injury, such as a car accident. ? Major or lengthy surgery. ? A central line placed inside a large vein. What are the signs or symptoms? Symptoms of this condition include: Swelling, pain, or tenderness in an arm or leg. Warmth, redness, or discoloration in an arm or leg. If the clot is in your leg, symptoms may be more noticeable or worse when you stand or walk. Some people may not develop any symptoms. How is this diagnosed? This condition is diagnosed with: A medical history and physical exam. Tests, such as: ? Blood tests. These are done to check how well your blood clots. ? Ultrasound. This is done to check for clots. ? Venogram. For this test, contrast dye is injected into a vein and X-rays are taken to check for anyclots. How is this treated? Treatment for this condition depends on: The cause of your DVT. Your risk for bleeding or developing more clots. Any other medical conditions that you have. Treatment may include: Taking a blood thinner (anticoagulant). This type of medicine prevents clots from forming. It may be taken by mouth, injected under the skin, or injected through an IV (catheter). Injecting clot-dissolving medicines into the affected vein (catheter-directed thrombolysis). Having surgery. Surgery may be done to: ? Remove the clot. ? Place a filter in a large vein to catch blood clots before they reach the lungs. Some treatments may be continued for up to six months. Follow these instructions at home: If you are taking blood thinners: Take the medicine exactly as told by your health care provider. Some blood thinners need to be taken at the same time every day. Do not skip a dose. Talk with your health care provider before you take any medicines that contain aspirin or NSAIDs. These medicines increase your risk for dangerous bleeding. Ask your health care provider about foods and drugs that could change the way the medicine works (may interact). Avoid those things if your health care provider tells you to do so. Blood thinners can cause easy bruising and may make it difficult to stop bleeding. Because of this: ? Be very careful when using knives, scissors, or other sharp objects. ? Use an electric razor instead of a blade. ? Avoid activities that could cause injury or bruising, and follow instructions about how to prevent falls. Wear a medical alert bracelet or carry a card that lists what medicines you take. General instructions Take [id number] and prescription medicines only as told by your health care provider. Return to your normal activities as told by your health care provider. Ask your health care provider what activities are safe for you. Wear compression stockings if recommended by your health care provider. Keep all follow-up visits as told by your health care provider. This is important. How is this prevented? 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 Assessment Postanesthesia assessment Vitals: Vital signs from flowsheet : Vital Signs 02/02/2022 10:20 EDT Heart Rate Monitored 76 bpm Respiratory Rate 6 br/min br/min 02/02/2022 10:15 EDT Respiratory Rate 9 br/min br/min 02/02/2022 10:10 EDT Heart Rate Monitored 67 bpm bpm Respiratory Rate 12 br/min br/min Systolic Blood Pressure NBP 122 mmHg mmHg Diastolic Blood Pressure NBP 84 mmHg mmHg 02/02/2022 10:05 EDT Heart Rate Monitored 67 bpm bpm Respiratory Rate 12 br/min br/min Systolic Blood Pressure NBP 125 mmHg mmHg Diastolic Blood Pressure NBP 85 mmHg mmHg 02/02/2022 10:00 EDT Temperature (Route Not Specified) 36 DegC DegC Heart Rate Monitored 64 bpm bpm Respiratory Rate 12 br/min br/min Systolic Blood Pressure NBP 127 mmHg mmHg Diastolic Blood Pressure NBP 87 mmHg mmHg 02/02/2022 9:55 EDT Heart Rate Monitored 62 bpm bpm Respiratory Rate 12 br/min br/min Systolic Blood Pressure NBP 126 mmHg mmHg Diastolic Blood Pressure NBP 90 mmHg mmHg 02/02/2022 9:50 EDT Heart Rate Monitored 59 bpm bpm Respiratory Rate 12 br/min br/min Systolic Blood Pressure NBP 119 mmHg mmHg Diastolic Blood Pressure NBP 83 mmHg mmHg 02/02/2022 9:45 EDT Temperature (Route Not Specified) 36 DegC DegC Heart Rate Monitored 59 bpm bpm Respiratory Rate 12 br/min br/min Systolic Blood Pressure NBP 130 mmHg mmHg Diastolic Blood Pressure NBP 91 mmHg mmHg 02/02/2022 9:40 EDT Heart Rate Monitored 68 bpm bpm Respiratory Rate 12 br/min br/min Systolic Blood Pressure NBP 127 mmHg mmHg Diastolic Blood Pressure NBP 88 mmHg mmHg 02/02/2022 9:36 EDT Systolic Blood Pressure NBP 126 mmHg mmHg Diastolic Blood Pressure NBP 87 mmHg mmHg 02/02/2022 9:35 EDT Respiratory Rate 12 br/min br/min 02/02/2022 9:30 EDT Heart Rate Monitored 80 bpm bpm Respiratory Rate 3 br/min br/min 02/02/2022 9:25 EDT Heart Rate Monitored 65 bpm bpm Respiratory Rate 0 br/min br/min Systolic Blood Pressure NBP 130 mmHg mmHg Diastolic Blood Pressure NBP 82 mmHg mmHg 02/02/2022 7:53 EDT Temperature Temporal Artery 36.1 DegC Apical Heart Rate 72 bpm Respiratory Rate 14 br/min Systolic BP Left Arm 136 mmHg Diastolic BP Left Arm 91 mmHg HI , Measurements from flowsheet . Mental status: alert & oriented x 4. Respiratory function: respirations are non-labored. Respiratory support: none. CV function: Normal rate. Cardiovascular support: none. Pain. Nausea status: see nursing documentation of medications. Postoperative hydration status: within normal limits. Digitally Signed by MAGNUS CARBONE on 02/02/2022 10:28 AM [facility]08-25-2022 Anesthesiology Consult note Patient: FLORENCIA TAVAREZ Age: 56 years Sex: Male : 1965 Associated Diagnoses: None Author: MAGNUS CARBONE Preoperative Information Time of last food or liquid consumption: 02/02/2022 00:00:00 Anesthesia history Patient's history: negative. Family's history: negative. Health Status Allergies: Allergic Reactions (Selected) Severity Not Documented Allopurinol- Swelling of oral cavity structure., Allergies (1) ActiveReaction allopurinolSwelling of oral cavity structure Current medications: (Selected) Inpatient Medications Ordered LR 1,000 mL: 20 mL/hr, Intravenous lidocaine 1% preservative-free injectable solution: 2.5 mg, 0.25 mL, Intradermal, prep pharm Prescriptions Prescribed Loratadine-D 24 Hour oral tablet, extended release: 1 tab(s), Oral, qDay, 90 tab(s), 3 Refill(s) betamethasone valerate 0.1% topical cream: 1 laurie, Topical, BID, 15 gram(s), 1 Refill(s) celecoxib 200 mg oral capsule: 200 mg, 1 cap(s), Oral, qDay, Do not take concurrently with indomethacin., PRN: Joint pain, 90 cap(s), 3 Refill(s) colchicine 0.6 mg oral tablet: 0.6 mg, 1 tab(s), Oral, qDay, 90 tab(s), 3 Refill(s) indomethacin 75 mg oral capsule, extended release: 75 mg, 1 cap(s), Oral, BID, Do not take concurrently with Celebrex., PRN: Gout attack, 180 cap(s), 0 Refill(s) predniSONE 10 mg oral tablet: See Instructions, Take 6 tabs daily x3 days, then 5 tablets daily x3 days, then 4 tabs daily x3 days, then 3 tabs daily x3 days, then 2 tabs daily x3 days, then 1 tab daily x3 days; take with food, PRN: Joint pain, 63 tab(s), 1 Refill(s) sildenafil 20 mg oral tablet: 1-5 tabs, Oral, Daily, PRN: Erectile dysfunction, 30 tab(s), 3 Refill(s) Documented Medications Documented Multivitamin: 1 tab(s), Oral, Daily, 0 Refill(s), Medications (2) Active Scheduled: (1) lidocaine 1% (MPF) 2 mL vial pf 2.5 mg 0.25 mL, Intradermal, prep pharm Continuous: (1) Lactated Ringers 1,000 mL 1,000 mL, Intravenous, 20 mL/hr PRN: (0) Problem list: Medical Gout / SNOMED CT 8908749924 / Confirmed ED (erectile dysfunction) / SNOMED CT 7201908536 / Confirmed Benign lipomatous neoplasm of skin and subcutaneous tissue of right leg / SNOMED CT [id number] / Confirmed Mass of soft tissue of lower leg / SNOMED CT 885839968 / Confirmed Seasonal allergies / SNOMED CT 2618333302 / Confirmed, Active Problems (6) Benign lipomatous neoplasm of skin and subcutaneous tissue of right leg ED (erectile dysfunction) Gout Mass of soft tissue of lower leg Osteoarthritis Seasonal allergies Histories Past Medical History: Resolved Umbilical hernia without obstruction or gangrene ([id number]): Resolved. Family History: Breast cancer Mother Procedure history: Repair of umbilical hernia using surgical mesh ([id number]) on 04/03/2019 at 54 Years. Appendectomy ([id number]). Arthroscopy of knee ([id number]). Comments: 01/25/2022 8:17 EDT - Tana Miller RN Right Colonoscopy ([id number]). Social History Social & Psychosocial Habits Alcohol 12/03/2018 Frequency: 1-2 times per week 04/30/2019Risk Assessment: High Risk Employment/School 03/19/2019 Status: Employed Substance Abuse 12/03/2018 Use: Never 04/30/2019Risk Assessment: No Risk Tobacco 04/30/2019Risk Assessment: High Risk 01/25/2022 Tobacco Use: DAILY CHEWING Type: Oral (Snuff, Chew) Ready to change: No Smokeless tobacco use: Smokeless tobacco user wi Exercise 03/19/2019 Exercise type: Aerobics, Jogging/Running Times per week: 3-4 times/week Home/Environment 03/19/2019 Domestic Concerns None Living situation: Home/Independent Lives In Single level home Nutrition/Health 03/19/2019 Type of diet: Regular Appetite Good Eating Difficulties None Caffeine intake amount: 1 serving of coffee a day . Physical Examination Vital Signs 02/02/2022 9:35 EDT Respiratory Rate 12 br/min br/min 02/02/2022 9:30 EDT Heart Rate Monitored 80 bpm bpm Respiratory Rate 3 br/min br/min 02/02/2022 9:25 EDT Heart Rate Monitored 65 bpm bpm Respiratory Rate 0 br/min br/min Systolic Blood Pressure NBP 130 mmHg mmHg Diastolic Blood Pressure NBP 82 mmHg mmHg 02/02/2022 7:53 EDT Temperature Temporal Artery 36.1 DegC Apical Heart Rate 72 bpm Respiratory Rate 14 br/min Systolic BP Left Arm 136 mmHg Diastolic BP Left Arm 91 mmHg HI Vital Signs(last 24 hrs) Last Charted Heart Rate [id number] bpm (FEB 02 09:30) Resp Rate 12 br/min (FEB 02 09:35) ZTB056 mmHg (FEB 02 09:25) DBP82 mmHg (FEB 02 09:25) Measurements from flowsheet : Measurements 02/02/2022 7:53 EDT Height 182.9 cm Height in inches 72 inch(es) Admission Weight 109.1 kg Weight Lbs 240 lb Weight Method Stated [place] Body Weight 77.62 kg Admission Body Mass Index 32.61 m2 Pain assessment: Pain Assessment 02/02/2022 7:53 EDT Primary Pain Intensity 0 Pain Scale Type 0-10 Pain scale . General: Alert and oriented. Airway: Normal mouth, Normal neck range of motion. Mallampati classification: III (soft palate, base of uvula visible). Dentition Evaluation: Denies loose/chipped teeth. Respiratory: Respirations are non-labored. Cardiovascular: Normal rate. Neurologic: Alert, Oriented. Review / Management Results review: No qualifying data available , Lab results 02/02/2022 9:46 EDT SN - Proc - Anesthesia Type General 02/02/2022 9:46 EDT SN - DRS - Site and Details RIGHT POSTERIOR CALF PROCEDURE SITE 02/02/2022 9:44 EDT SN - CTm - Surgery Start 02/02/2022 9:42 02/02/2022 9:39 EDT SN - PP - Body Position Prone Standard Intra-op (Modified) 02/02/2022 9:35 EDT Respiratory Rate 12 br/min br/min Oxygen Saturation 100 % % Set Rate Anes 12 br/min br/min 02/02/2022 9:30 EDT Heart Rate Monitored 80 bpm bpm Respiratory Rate 3 br/min br/min Oxygen Saturation 100 % % AOH MAIN OR Preop & Phase II Record AOH MAIN OR Preop & Phase II Record Set Rate Anes 12 br/min br/min 02/02/2022 9:25 EDT Heart Rate Monitored 65 bpm bpm Respiratory Rate 0 br/min br/min Systolic Blood Pressure NBP 130 mmHg mmHg Diastolic Blood Pressure NBP 82 mmHg mmHg Oxygen Saturation 96.3 % % 02/02/2022 8:27 EDT SN - Proc - Actual Procedure EXCISION SOFT TISSUE TUMOR RIGHT POSTERIOR CALF 02/02/2022 8:27 EDT SN - SP - Prep Agents Chloraprep SN - SP - HR - Method Clipped 02/02/2022 8:25 EDT SN - PTCare - Anti-thromboembolism Romina Sequential Compression Device (SCD) 02/02/2022 8:25 EDT SN - Assess - LOC Alert, Awake SN - Assess - Orientation Oriented X 3 SN - Assess - Post-op Skin Integrity Intact/Dry 02/02/2022 8:25 EDT SN - MA - Route of Administration Local SN - MA - By (Single) SN - MA - By (Single) 02/02/2022 8:24 EDT SN - GCD - Post-operative Diagnosis SOFT TISSUE TUMOR RIGHT POSTERIOR CALF SN - GCD - Case Level Level 2 02/02/2022 8:24 EDT SN - Cul - Culture Type Tissue in Formalin 02/02/2022 8:23 EDT SN - CAt - Case Attendee SN - CAt - Case Attendee SN - CAt - Case Attendee SN - CAt - Case Attendee SN - CAt - Case Attendee SN - CAt - Case Attendee SN - CAt - Case Attendee SN - CAt - Case Attendee SN - CAt - Case Attendee SN - CAt - Case Attendee SN - CAt - Role Performed Primary Surgeon SN - CAt - Role Performed PERSONAL INJURY LITIGATION PARALEGAL SN - CAt - Role Performed Living Coach 1 SN - CAt - Role Performed Scrub 1 SN - CAt - Role 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 1 02/02/2022 8:15 EDT SN - Preop - CTm Pt in SDS Room 02/02/2022 7:50 SN - Preop - CTm Pt Ready for OR/Proced 02/02/2022 8:15 02/02/2022 8:13 EDT IV Present Present Hand Left 02/02/2022 20 gauge Peripheral IV Activity: Insert new site Peripheral IV Dressing Condition: Clean, Dry, Intact Peripheral IV Dressing Activity: Applied, Transparent dressing Peripheral IV Line Status/Patency: Flushes easily Peripheral IV Site Condition: No complications Peripheral IV Equipment: Extension set, PRN Adaptor 02/02/2022 8:12 EDT Lactated Ringers Injection Begin Bag 1,000 mL mL 02/02/2022 7:53 EDT Designated Person #1 We May Share PHI September Daysi [phone] Designated Person #1 Relationship Spouse Privacy Restrictions Requested None Height 182.9 cm Height in inches 72 inch(es) Admission Weight 109.1 kg Weight Lbs 240 lb Weight Method Stated [place] Body Weight 77.62 kg Admission Body Mass Index 32.61 m2 Temperature Temporal Artery 36.1 DegC Apical Heart Rate 72 bpm Respiratory Rate 14 br/min Systolic BP Left Arm 136 mmHg Diastolic BP Left Arm 91 mmHg HI Primary Pain Intensity 0 Pain Scale Type 0-10 Pain scale Nail Bed Color Yancey Capillary Refill < 2 seconds Heart Rhythm Regular All Lobes Breath Sounds Clear Oxygen Therapy Room air Oxygen Saturation 96 % Abdomen Description Non-distended Abdomen Palpation Non-Tender Bowel Sounds All Quadrants Present Urinary Elimination Voiding, no difficulties Status N/A Skin Temperature Warm Skin Description Yancey, Dry Skin Integrity Intact Neurological Symptoms Tingling Extremity Movement Equal Characteristics of Speech Clear Level of Consciousness Alert OLIVER Yes Strength All Extremities Strong Tone All Extremities Normal Sensation All Extremities Intact Affect/Behavior Appropriate Orientation Oriented x 4 Sensory Deficits None Sleep Apnea Snore Yes Sleep Apnea Tired No Sleep Apnea Obstruction Yes Sleep Apnea Pressure No Sleep Apnea BMI No Sleep Apnea Age Yes Sleep Apnea Neck No Sleep Apnea Gender Yes Sleep Apnea Score 4 High Risk for Sleep Apnea No Diagnosed With Sleep Apnea No Advanced Directives Yes Advance Directive Location Indicates that Azucena has been given copy Infectious Disease Symptoms Patient states no symptoms Infectious Disease Recent Exposure No Alcohol and Drug Use No Employee of Institutional Living No Health Care Employee No History of Exposure to TB No History of Positive Chest X-Ray for TB No History of Positive TB Skin Test No Homeless No Known Immunosuppression No Recent Immigrant No Resident of Institutional Living No Bloody Sputum No Fatigue No Fever No Loss of Appetite No Night Sweats No Persistent Cough > 3 Weeks No Weight Loss No Allergies Yes Consent Form Signed Yes Patient Dressed In Hospital gown, No undergarments History & Physical Update On Chart Yes History & Physical On Chart Yes Obstructive Sleep Apnea Assess Completed Yes Safety Brochure Information Reviewed Yes Azucena Welcome Video Viewed No Barriers to Learning None evident Teaching Method Explanation, Printed materials Teaching Evaluation Verbalizes/Nonverbally indicates understanding Preferred Written Language Faroese Preferred Spoken Language Faroese Information Given by Patient Patient's Current Physicians Patient's Current Physicians Belongings At Bedside Shirt, Shoes, Shorts, Socks, Undergarments Discharge To, Anticipated Home independently Activity Status ADL Awake, Up to bathroom SCD On/Re-applied bilateral knee high NPO Status Maintained Standard Safety ID band on, Allergy Band on, Call device within reach, Bed in low position, Wheels locked, Upper/Half-Length side-rails up, Safety level maintained, Non-Slip footwear Prev Test Positive/Diagnosis w/COVID-19 No Current Quarantine/Isolated any Illness No Any Contact with Sick Animals/Birds No Traveled Anywhere in Last 30 Days Yes Travel Where Within [facility] [place] Allergy Band on and Verified Yes Patient ID Band on and Verified Yes Implants Verified Yes Pacemaker/AICD Verified Yes Blood Consent Signed Yes Last Fluid Intake 02/01/2022 17:00 Last Food Intake 02/01/2022 17:00 Last Void 02/02/2022 7:50 Lost Weight Unintentionally Recently No Eat Poorly Due to Decreased Appetite No Total MST Score 0 N/A Personal Devices, Patient Valuables None Anesthesia/Transfusions Prior anesthesia Admission Note-Nursing Same Day Patient History . Assessment and Plan Citizen Of [place] Society of Anesthesiologists (ASA) physical status classification: Class III. Anesthetic Preoperative Plan Anesthetic technique: General. Informed consent: signed by patient. Digitally Signed by MAGNUS CARBONE on 02/02/2022 09:47 AM [facility]ments Appointment Date:10/20/2021 03:30:00 PM Scheduled Provider:CHRISTIAN HECTOR MD Location:[facility] Appointment Type:GS OV Check after Test [facility] Evaluation + Plan note Future Appointments Appointment Date:10/24/2021 04:00:00 PM Scheduled Provider:CHRISTIAN HECTOR MD Location:[facility] Appointment Type:GS OV Check after Test Future Scheduled Tests Radiology* MRI Tibia/Fibula w/ + w/o Contrast Right 10/19/21 [facility] Evaluation + Plan note Future Appointments [facility] Evaluation + Plan note Future Appointments Appointment Date:08/17/2023 08:00:00 AM Scheduled Provider: Location:[facility] Appointment Type:NUT Diet Visit Individual Appointment Date:08/17/2023 09:00:00 AM Scheduled Provider: Location:[facility] Appointment Type:MEDS - Diabetic Individual Visit Appointment Date:10/25/2023 02:00:00 PM Scheduled Provider:AUSTIN FINLEY DO Location:[facility] Appointment Type:PC OV Future Scheduled Tests Laboratory* Basic Metabolic Panel 07/27/23 * Lipid Profile 07/27/23 * Albumin/Creatinine Ratio, Random Urine 07/27/23 [facility] Evaluation + Plan note Future Appointments Appointment Date:08/24/2023 08:00:00 AM Scheduled Provider: Location:[facility] Appointment Type:MEDS - Diabetic Individual Visit Appointment Date:10/25/2023 02:00:00 PM Scheduled Provider:AUSTIN FINLEY DO Location:[facility] Appointment Type:PC OV Future Scheduled Tests Laboratory* Basic Metabolic Panel 07/27/23 * Lipid Profile 07/27/23 * Albumin/Creatinine Ratio, Random Urine 07/27/23 [facility] Evaluation + Plan note Future Appointments Appointment Date:04/09/2024 08:00:00 AM Scheduled Provider:AUSTIN IFNLEY DO Location:[facility] Appointment Type:PC OV Future Scheduled Tests Laboratory* Basic Metabolic Panel 07/27/23 * Lipid Profile 07/27/23 * Albumin/Creatinine Ratio, Random Urine 07/27/23 * Albumin/Creatinine Ratio, Random Urine 02/24/24 [facility] Evaluation note* Diagnosis Acute chest pain- Primary Unspecified chest pain Hyperglycemia Other abnormal glucose documented in this encounter [facility] course Narrative No data available for this section [facility] Discharge instructions No data available for this section [facility] Progress note No data available for this section [facility] Summary Purpose Family History No Family History Records FoundNo Family History Records FoundNo Family History Records Found No data available for this section No data available for this section No data available for this section No Family History Records FoundNo Family History Records Found No data available for this section Advance Directives No Advanced Directives Records FoundNo Advanced Directives Records FoundNo Advanced Directives Records FoundNo Advanced Directives Records FoundNo Advanced Directives Records Found Additional Source Comments (unrecognized sect ion and content) No Status Records FoundNo Status Records FoundNo Status Records FoundNo Status Records FoundNo Status Records Found INFORMATION SOURCE (unrecogn ized section and content) DATE CREATED AUTHOR 08/11/2018 [facility] DATE CREATED AUTHOR AUTHOR'S ORGANIZ ATION 06/12/2019 [facility] DATE CREATED AUTHOR AUTHOR'S ORGANIZ ATION 07/15/2023 [facility] DATE CREATED AUTHOR AUTHOR'S ORGANIZ ATION 12/16/2023 [facility] ([place] DATE CREATED AUTHOR AUTHOR'S ORGANIZ ATION 04/09/2024 [facility] Care Team (unrecognized sect ion and content) Care Team Personnel Name: AUSTIN FINLEY DO Position: P4 Physician - Primary Care Member Role: Primary Care Physician Address: Address: [address] [place] [address] Care Team Related Persons Name: DAYSI September Address: Home [address] [place], [place] [id number] Framer Relationship Specialty Start Date End Date Austin Finley DO [address] [place] [address] PCP - General Family Medicine 07/14/23 Framer Relationship Specialty Start Date End Date Austin Finley DO [address] [place] [address] PCP - General Family Medicine 07/14/23 Care Team (unrecognized sect ion and content) Care Team Personnel Name: AUSTIN FINLEY DO Position: P4 Physician - Primary Care Med Service: Active Provider Member Role: Primary Care Physician Address: Address: [address] [place] [address] Care Team Related Persons Name: DAYSISeptember Address: Home [address] [place] [id number] Care Team Personnel Name: AUSTIN FINLEY DO Position: P4 Physician - Primary Care Member Role: Primary Care Physician Address: Address: [address] [place] [address] Care Team Related Persons Name: DAYSISeptember Address: Home [address] [place], [place] [id number] Reason for Visit (unrecogniz ed section and content) Reason Comments Chest Pain FOR RECORDS PERTAINING TO PATIENTS WHO ARE OR HAVE BEEN ENROLLED IN A CHEMICAL DEPENDENCY/SUBSTANCEABUSE PROGRAM, SOME INFORMATION MAY BE OMITTED. This clinical summary was aggregated from multiple sources. Caution should be exercised in using it in the provision of clinical care. This summary normalizes information from multiple sources, and as a consequence, information in this document may materially change the coding, format and clinical context of patient data. In addition, data may be omitted in some cases. CLINICAL DECISIONS SHOULD BE BASED ON THE PRIMARY CLINICAL RECORDS. [facility] [employer] [facility]. provides no warranty or guarantee of the accuracy or completeness of information in this document.
--- NOTE | 2024-04-10 06:38 | MRI_ITS ---
STUDY: MRI BRAIN WITH AND WITHOUT CONTRAST (ATTENTION INTERNAL AUDITORY CANALS - I.A.C.''s) REASON FOR EXAM: Male, 59 years old. LT TINNITUS, HEARING LOSSX 6 MONS TECHNIQUE: Standardized multiplanar fat and water weighted pulse sequences were obtained. IV 21ml clariscan was administered for the contrast portion of the examination. COMPARISON: None. FINDINGS: Normal bilateral temporal bones. Normal bilateral internal auditory canals. There is no demonstrated intracanalicular or cisternal vestibular schwannoma ( acoustic neuroma ). There is no enhancement of the bilateral VIIth or VIIIth cranial nerves. Normal bilateral cochlea, vestibules and semicircular canals. Normal size of the ventricles and extra-axial spaces for the patient''s age. Normal white matter tracts of the supratentorial brain. Normal bilateral basal ganglia. Normal thalami. Normal flow voids within the major intracranial circulation suggesting patency by spin echo criteria. Normal venous enhancement. There is no enhancing intra-axial or extra-axial abnormality. There is no extra-axial fluid accumulation. Normal sella turcica, pituitary gland, infundibular stalk, optic chiasm and hypothalamus. Normal tectal plate and pineal gland. Normal midbrain, vangie and medulla. Normal cerebellum. Normal basal cisterns. No demonstrated orbital abnormality, within the constraints of a routine brain study. Normal visualized paranasal sinuses. Normal calvarium and skull base. Normal visualized soft tissue structures. Normal visualized upper cervical spine. MRI/Brain W/WO Contrast IMPRESSION: Normal unenhanced and enhanced MRI of the bilateral internal auditory canals (I.A.C''s). Electronically Signed: Denis Borjas MD at 0:14 EDT ,
== END | disposition home or self-care (01) ==
PROVIDERS: PCP Preventive Medicine Occupational Medicine; Referring Provider Otolaryngology; Visit Provider Otolaryngology
DX: H93.12 Tinnitus, left ear (principal); H90.42 Sensorineural hearing loss, unilateral, left ear, with unrestricted hearing on the contralateral side
CPT/HCPCS: 70553; A9575